=== PATIENT | male | born 1950 | race Caucasian/White ===

== ENCOUNTER 2017-02-16 13:22 | Inpatient (IN) | payer MEDICARE ==
[~2017-02-16] VITALS: Ht 170.2 cm; Wt 71.6 kg
[~2017-02-16 13:22] MED LIST: ACET325T14 PO; AMLO5TAB2 PO; AMLO5TAB4 PO; ANTIDEPRESSANT; ASCO500T6 PO; ASPI-496 PO; ASPI-515 PO; ATOR40TA78 PO; Amlodipine Besylate PO; BETA15OI6 TP; CHLO25TA PO; CLON0.1T12 PO; COMPAZINE; DICL100G8 TP; DULO20CA17 PO; ENAL20TA PO; ESCI10TA PO; FAMO20TA7 PO; FERR1TAB2 PO; FERR325T20 PO; FOLI-17 PO; Ferrous Sulfate PO; HYDR-3343 PO; HYDR25TA6 PO; HYDR50TA13 PO; Hydrocodone Bit/Acetaminophen PO; LISI-167 PO; LISI-170 PO; LISI5TAB7 PO; METF500T PO; METH2.5T PO; METH4TAB2 PO; METO-95 PO; METO-99 PO; METO25TA35 PO; METO50TA82 PO; OMEP-110 PO; ONDA4TAB10 PO; ONDA4TAB13 PO; ONDA4TAB13 SL; OXYC10TA32 PO; OXYC5TAB2 PO; PANT40TA3 PO; POTA10TA11 PO; PRED20TA PO; SENN1TAB7 PO; SPIR25TA PO; SUCR1ORA11 PO; SUCR1ORA2 PO; SUCR1TAB26 PO; SUMA25TA3 PO; TAMS-11 PO; TAMS0.4C2 PO; UNKNOWN BP MEDS; [UNRECOGNIZED DRUG - REMARK]
[2017-02-16] MEDS ORDERED: SODIUM CHLORIDE FLUSH 10ML SYR IVF ONE (14:30)
[2017-02-16] MEDS ORDERED: FAMOTIDINE 20 MG/2 ML IVP ONE (14:30)
[2017-02-16] MEDS ORDERED: SODIUM CHLORIDE 0.9% 1,000ML IVBOLUS ONE ×2 (14:30→17:00)
[2017-02-16] MEDS ORDERED: ONDANSETRON 2MG/ML, 2ML IVPush ONE ×2 (14:30→17:00)
[2017-02-16] MEDS ORDERED: MORPHINE SULFATE 4 MG/ML, 1ML ONE ×4 (14:57→21:48)
[2017-02-16] MEDS ORDERED: ONDANSETRON 2MG/ML, 2ML ONE ×2 (14:58→16:57)
[2017-02-16] MEDS ORDERED: FAMOTIDINE 20 MG/2 ML ONE (14:58)
[2017-02-16] MEDS: MORPHINE SULFATE 4 MG/ML, 1ML IVPush PRN ×2 (15:03→16:00)
[2017-02-16 15:35] LABS: ASPARTATE AMINO TRANSFERASE 7 U/L (15-37); BLOOD UREA NITROGEN 10 mg/dL (7-18)
[2017-02-16 18:03] LABS: PATH.CAST-FLAG NOT PRESENT; SPERM-FLAG NOT PRESENT; SRC-FLAG NOT PRESENT; XTAL-FLAG NOT PRESENT; YLC-FLAG NOT PRESENT
[2017-02-16] MEDS ORDERED: OMNIPAQUE 350 MG/ML, 100ML BOTTLE ONE (18:17)
[2017-02-16] MEDS ORDERED: MORPHINE SULFATE 4 MG/ML, 1ML IVPush ONE ×2 (19:00→21:30)
[2017-02-16] MEDS ORDERED: LISINOPRIL 10 MG TABLET PO ONE (19:00)
[2017-02-16] MEDS ORDERED: LISINOPRIL 20 MG TABLET ONE (19:08)
[2017-02-16] MEDS ORDERED: PROCHLORPERAZINE 5 MG/ML, 2ML ONE (20:57)
[2017-02-16] MEDS ORDERED: PROCHLORPERAZINE 5 MG/ML, 2ML IM ONE (21:00)
[2017-02-16] MEDS ORDERED: METRONIDAZOLE PMX 500MG/100ML 100 ML ONE (21:28)
[2017-02-16] MEDS ORDERED: METRONIDAZOLE PMX 500MG/100ML 100 ML IV ONE (21:30)
[2017-02-16] MEDS ORDERED: hydrALAzine 20 MG/ML, 1ML IV PRN (22:00)
[2017-02-16] MEDS ORDERED: DIPHENHYDRAMINE 25 MG CAPSULE PO PRN (22:00)
[2017-02-16] MEDS ORDERED: LABETALOL 5MG/ML, 20ML IVPush PRN (22:00)
[2017-02-16] MEDS ORDERED: LABETALOL 5MG/ML 40ML VIAL ONE (22:34)
[2017-02-16] MEDS ORDERED: LABETALOL 20 MG/4 ML IVPush PRN (23:00)
[2017-02-16 23:11] VITALS: BP 170/90
[2017-02-17] MEDS: POTASSIUM CHLORIDE 20 MEQ in SODIUM CHLORIDE 0.45% 1,000 ML IV SCH ×2 (01:02→17:37)
[2017-02-17 01:36] VITALS: BP 171/96
[2017-02-17 03:41] VITALS: BP 165/84
[2017-02-17 05:56] LABS: BLOOD UREA NITROGEN 7 mg/dL (7-18)
[2017-02-17] MEDS ORDERED: METRONIDAZOLE PMX 500MG/100ML 100 ML IV SCH (06:00)
[2017-02-17 06:41] VITALS: BP 166/81
[2017-02-17] MEDS ORDERED: POTASSIUM CHLORIDE 40 MEQ in SODIUM CHLORIDE 0.9% 500 ML IV ONE (07:30)
[2017-02-17] MEDS: LISINOPRIL 5 MG TABLET PO SCH ×2 (07:49→20:34)
[2017-02-17] MEDS: KETOROLAC 30 MG/1 ML IVPush PRN ×2 (08:10→18:33)
[2017-02-17] MEDS: ONDANSETRON 2MG/ML, 2ML IVPush PRN ×2 (08:10→18:33)
[2017-02-17] MEDS: TAMSULOSIN 0.4 MG CAP.ER.24H PO SCH (10:17)
[2017-02-17] MEDS: metroNIDAZOLE 500 MG TABLET PO SCH ×2 (10:17→17:19)
[2017-02-17] MEDS: ACETAMINOPHEN 325 MG TABLET PO PRN ×2 (11:35→23:14)
[2017-02-17 13:31] VITALS: BP 139/81
[2017-02-17 18:38] VITALS: BP 187/93
[2017-02-17 20:32] VITALS: BP 154/75
[2017-02-18] MEDS: KETOROLAC 30 MG/1 ML IVPush PRN (00:12)
[2017-02-18] MEDS: metroNIDAZOLE 500 MG TABLET PO SCH ×2 (01:33→07:57)
[2017-02-18 02:30] VITALS: BP 157/93
[2017-02-18] MEDS: ACETAMINOPHEN 325 MG TABLET PO PRN ×2 (04:30→11:32)
[2017-02-18] MEDS: POTASSIUM CHLORIDE 20 MEQ in SODIUM CHLORIDE 0.45% 1,000 ML IV SCH (05:12)
[2017-02-18 06:02] LABS: BLOOD UREA NITROGEN 4 mg/dL (7-18)
[2017-02-18 07:13] VITALS: BP 180/88
[2017-02-18] MEDS ORDERED: POTASSIUM CHLORIDE 40 MEQ in SODIUM CHLORIDE 0.9% 500 ML IV ONE (07:30)
[2017-02-18] MEDS ORDERED: POTASSIUM CHLORIDE 20 MEQ TAB.ER.PRT PO ONE (07:30)
[2017-02-18] MEDS: TAMSULOSIN 0.4 MG CAP.ER.24H PO SCH (07:57)
[2017-02-18] MEDS: LISINOPRIL 5 MG TABLET PO SCH (07:58)
[2017-02-18] MEDS ORDERED: metFORMIN 500 MG TABLET PO SCH (08:00)
[2017-02-18] MEDS ORDERED: AMLODIPINE 2.5 MG TABLET PO SCH (09:00)
[2017-02-18] MEDS ORDERED: MAGNESIUM SULFATE PMX 2GM/50ML 50 ML IV ONE (11:00)
[2017-02-18] MEDS ORDERED: LABETALOL 5MG/ML, 20ML IV PRN (12:00)
[2017-02-18] MEDS ORDERED: LABETALOL 20 MG/4 ML IV PRN (12:30)
[2017-02-18 13:03] VITALS: BP 165/86
[2017-02-19] MEDS ORDERED: AMLODIPINE 5 MG TABLET PO SCH (09:00)
== END 2017-02-18 16:38 | disposition left against medical advice (07) | DRG 372 ==
LOC: ED 15:20 → EDIP 20:21 → UNDOADMIN 20:21 → EDIP 21:02 → 3NE 22:56
PROVIDERS: ADMIT Family Medicine; ATTEND Family Medicine
DX: A04.7 Enterocolitis due to Clostridium difficile (principal); R45.851 Suicidal ideations; E83.42 Hypomagnesemia; E87.6 Hypokalemia; F32.9 Major depressive disorder, single episode, unspecified; I10 Essential (primary) hypertension; I16.0 Hypertensive urgency; R73.9 Hyperglycemia, unspecified; L40.50 Arthropathic psoriasis, unspecified; N40.1 Benign prostatic hyperplasia with lower urinary tract symptoms; R33.8 Other retention of urine; Z79.899 Other long term (current) drug therapy; I25.2 Old myocardial infarction; Z87.11 Personal history of peptic ulcer disease; Z91.14 Patient's other noncompliance with medication regimen; Z95.5 Presence of coronary angioplasty implant and graft; Z88.6 Allergy status to analgesic agent
CPT/HCPCS: 36415; 74177; 80048; 80053; 81001; 83036; 83605; 83690; 83735; 84134; 84153; 85025; 85610; 85730; 87324; 96361; 96372; 96374; 96375; 96376; J1885; J2405; J3480; Q9967; J0360; J0780; J3475; J3490; J7030; J7040; Q0163; S0028

== ENCOUNTER 2017-03-06 05:56 | Emergency (ER) | payer MEDICARE ==
[~2017-03-06] VITALS: Ht 170.2 cm; Wt 64.6 kg
[2017-03-06] MEDS ORDERED: SODIUM CHLORIDE 0.9% 1,000 ML IV ONE (06:10)
[2017-03-06] MEDS ORDERED: SODIUM CHLORIDE FLUSH 10ML SYR IVF ONE (06:30)
[2017-03-06] MEDS ORDERED: SODIUM CHLORIDE 0.9% 1,000ML IVBOLUS ONE (06:30)
[2017-03-06 06:43] LABS: ASPARTATE AMINO TRANSFERASE 7 U/L (15-37); BLOOD UREA NITROGEN 12 mg/dL (7-18)
[2017-03-06 06:52] LABS: IS PT STATUS REG ER OR PRE ER? YES
[2017-03-06] MEDS ORDERED: metroNIDAZOLE 500 MG TABLET PO ONE (11:30)
[2017-03-06] MEDS ORDERED: metroNIDAZOLE 500 MG TABLET ONE (11:31)
[2017-03-06 11:44] VITALS: BP 144/71
== END 2017-03-06 11:46 | disposition home or self-care (01) ==
LOC: ED 11:30
DX: R19.7 Diarrhea, unspecified (principal); A04.7 Enterocolitis due to Clostridium difficile; E11.9 Type 2 diabetes mellitus without complications; E86.0 Dehydration; I10 Essential (primary) hypertension; R11.2 Nausea with vomiting, unspecified; Z90.89 Acquired absence of other organs
CPT/HCPCS: 36415; 71010; 80053; 81001; 83605; 84484; 85025; 85610; 85730; 87040; 87324; 89055; 93005; 96360; 96361; 99285; J7030

== ENCOUNTER 2017-03-10 01:19 | Inpatient (IN) | payer MEDICARE ==
[~2017-03-10] VITALS: Ht 170.2 cm; Wt 65.9 kg
[2017-03-10] MEDS ORDERED: SODIUM CHLORIDE FLUSH 10ML SYR IVF ONE (02:00)
[2017-03-10] MEDS ORDERED: SODIUM CHLORIDE 0.9% 1,000ML IVBOLUS ONE (02:00)
[2017-03-10] MEDS ORDERED: ONDANSETRON 2MG/ML, 2ML IVPush ONE (02:00)
[2017-03-10] MEDS ORDERED: MORPHINE SULFATE 4 MG/ML, 1ML IVPush PRN (02:00)
[2017-03-10] MEDS ORDERED: ONDANSETRON 2MG/ML, 2ML ONE (02:09)
[2017-03-10] MEDS ORDERED: METR250T PO (02:18)
[2017-03-10 02:37] LABS: ASPARTATE AMINO TRANSFERASE < 3 U/L (15-37); BLOOD UREA NITROGEN 6 mg/dL (7-18)
[2017-03-10] MEDS ORDERED: METRONIDAZOLE PMX 500MG/100ML 100 ML IV ONE (03:00)
[2017-03-10] MEDS ORDERED: POTASSIUM CHLORIDE 20 MEQ TAB.ER.PRT PO ONE (03:00)
[2017-03-10] MEDS ORDERED: METRONIDAZOLE PMX 500MG/100ML 100 ML ONE (03:10)
[2017-03-10] MEDS ORDERED: POTASSIUM CHLORIDE 20 MEQ TAB.ER.PRT ONE (03:10)
[2017-03-10] MEDS ORDERED: LABETALOL 5MG/ML, 20ML ONE (04:20)
[2017-03-10] MEDS ORDERED: LABETALOL 5MG/ML, 20ML IVPush ONE (04:30)
[2017-03-10] MEDS ORDERED: ONDANSETRON ODT 4 MG PO PRN (05:00)
[2017-03-10] MEDS ORDERED: LABETALOL 5MG/ML, 20ML IVPush PRN (05:30)
[2017-03-10] MEDS: ACETAMINOPHEN 325 MG TABLET PO PRN (06:25)
[2017-03-10 07:00] VITALS: BP 177/108
[2017-03-10] MEDS ORDERED: LISINOPRIL 20 MG TABLET PO SCH (09:00)
[2017-03-10] MEDS: CHLORTHALIDONE 25 MG TABLET PO SCH (09:14)
[2017-03-10] MEDS: LISINOPRIL 20 MG TABLET PO SCH ×2 (09:15→20:27)
[2017-03-10 10:15] VITALS: BP 167/98
[2017-03-10] MEDS: HYDROcodone/APAP 5/325 TABLET PO PRN (11:31)
[2017-03-10 12:21] VITALS: BP 159/95
[2017-03-10] MEDS ORDERED: DEXTROSE 4 GM TAB.CHEW PO PRN (14:30)
[2017-03-10] MEDS ORDERED: DEXTROSE 50%, 50ML SYRINGE IVPush PRN (14:30)
[2017-03-10] MEDS ORDERED: GLUCAGON 1 MG IM PRN (14:30)
[2017-03-10] MEDS: INSULIN ASPART 100 UNITS/ML, PEN SQ-INSULIN SCH ×2 (16:00→20:50)
[2017-03-10] MEDS ORDERED: POTASSIUM CHLORIDE 40 MEQ in SODIUM CHLORIDE 0.9% 500 ML IV ONE ×2 (16:30→16:36)
[2017-03-10] MEDS ORDERED: MAGNESIUM SULFATE PMX 2GM/50ML 50 ML IV ONE (16:30)
[2017-03-10 16:45] LABS: DAU SCREEN DISCLAIMER
[2017-03-10 18:03] LABS: OCCBLD OBC PASS
[2017-03-10 20:04] VITALS: BP 121/73
[2017-03-10] MEDS: metroNIDAZOLE 500 MG TABLET PO SCH ×2 (20:27→21:00)
[2017-03-10] MEDS: SODIUM CHLORIDE FLUSH 10ML SYR IVF SCH (20:34)
[2017-03-10] MEDS: ONDANSETRON 2MG/ML, 2ML IVPush PRN (21:28)
[2017-03-11] VITALS (7 sets, daily range): BP systolic 142–185; BP diastolic 84–103
[2017-03-11 05:33] LABS: BLOOD UREA NITROGEN 4 mg/dL (7-18)
[2017-03-11] MEDS ORDERED: POTASSIUM CHLORIDE 40 MEQ in SODIUM CHLORIDE 0.9% 500 ML IV ONE ×2 (07:00→10:00)
[2017-03-11] MEDS: INSULIN ASPART 100 UNITS/ML, PEN SQ-INSULIN SCH ×2 (07:00→11:00)
[2017-03-11] MEDS: SODIUM CHLORIDE FLUSH 10ML SYR IVF SCH ×2 (08:26→21:38)
[2017-03-11] MEDS: metroNIDAZOLE 500 MG TABLET PO SCH ×2 (08:27→21:37)
[2017-03-11] MEDS: CHLORTHALIDONE 25 MG TABLET PO SCH (08:27)
[2017-03-11] MEDS: HYDROcodone/APAP 5/325 TABLET PO PRN (08:27)
[2017-03-11] MEDS: LISINOPRIL 20 MG TABLET PO SCH ×2 (08:28→21:37)
[2017-03-11] MEDS: ONDANSETRON 2MG/ML, 2ML IVPush PRN (09:47)
[2017-03-11] MEDS: hydrALAzine 20 MG/ML, 1ML IV PRN ×2 (12:47→16:05)
[2017-03-11] MEDS: ACETAMINOPHEN 325 MG TABLET PO PRN (14:35)
[2017-03-12 02:18] VITALS: BP 138/77
[2017-03-12 06:41] VITALS: BP 163/82
[2017-03-12] MEDS: SODIUM CHLORIDE FLUSH 10ML SYR IVF SCH (09:03)
[2017-03-12] MEDS: metroNIDAZOLE 500 MG TABLET PO SCH (09:04)
[2017-03-12] MEDS: LISINOPRIL 20 MG TABLET PO SCH (09:04)
[2017-03-12] MEDS: CHLORTHALIDONE 25 MG TABLET PO SCH (09:04)
[2017-03-12 12:51] VITALS: BP 162/93
[2017-03-12] MEDS ORDERED: AMLO5TAB2 PO (14:44)
[2017-03-12] MEDS ORDERED: LISI-170 PO (14:44)
[2017-03-12] MEDS ORDERED: METR500T PO (14:44)
[2017-03-12] MEDS ORDERED: CHLO25TA PO (14:44)
== END 2017-03-12 15:49 | disposition home or self-care (01) | DRG 372 ==
LOC: ED 01:45 → EDIP 03:48 → 3NE 05:07
PROVIDERS: ADMIT Family Medicine; ATTEND Family Medicine
DX: A04.7 Enterocolitis due to Clostridium difficile (principal); E44.1 Mild protein-calorie malnutrition; E87.6 Hypokalemia; E86.0 Dehydration; I10 Essential (primary) hypertension; I16.0 Hypertensive urgency; E11.9 Type 2 diabetes mellitus without complications; F32.9 Major depressive disorder, single episode, unspecified; F12.20 Cannabis dependence, uncomplicated; M19.90 Unspecified osteoarthritis, unspecified site; Z66 Do not resuscitate; Z82.3 Family history of stroke; Z86.73 Personal history of transient ischemic attack (TIA), and cerebral infarction without residual deficits; Z87.11 Personal history of peptic ulcer disease; I25.2 Old myocardial infarction; Z91.19 Patient's noncompliance with other medical treatment and regimen; Z88.8 Allergy status to other drugs, medicaments and biological substances; Z79.899 Other long term (current) drug therapy; Z90.49 Acquired absence of other specified parts of digestive tract
CPT/HCPCS: 36415; 80048; 80053; 80307; 82272; 82962; 83605; 83735; 84132; 84145; 85025; 87040; 87324; 93005; 96361; 96365; 96366; 96375; J1815; J2405; J3480; J0360; J3475; J7030; J7040

== ENCOUNTER 2017-04-10 06:04 | Inpatient (IN) | payer MEDICARE ==
[~2017-04-10] VITALS: Ht 170.2 cm; Wt 74.1 kg
[~2017-04-10 06:04] MED LIST changes: +METR250T PO; +METR500T PO
[2017-04-10] MEDS ORDERED: SODIUM CHLORIDE 0.9% 1,000 ML IV ONE (06:26)
[2017-04-10] MEDS ORDERED: SODIUM CHLORIDE 0.9% 1,000ML IVBOLUS ONE ×2 (06:30→08:00)
[2017-04-10] MEDS ORDERED: LORazepam 2 MG/ML, 1ML IVPush ONE (06:30)
[2017-04-10] MEDS ORDERED: ONDANSETRON 2MG/ML, 2ML IVPush ONE (06:30)
[2017-04-10 07:16] LABS: ASPARTATE AMINO TRANSFERASE 32 U/L (15-37); BLOOD UREA NITROGEN 23 mg/dL (7-18)
[2017-04-10 07:20] LABS: ACETAMINOPHEN < 2 mcg/mL (10-30)
[2017-04-10] MEDS ORDERED: ONDANSETRON 2MG/ML, 2ML ONE (07:55)
[2017-04-10] MEDS ORDERED: LORazepam 2 MG/ML, 1ML ONE (07:55)
[2017-04-10] MEDS ORDERED: POTASSIUM CHLORIDE 40 MEQ in SODIUM CHLORIDE 0.9% 500 ML IV ONE ×2 (08:00→16:30)
[2017-04-10] MEDS ORDERED: POTASSIUM CHLORIDE 10% 40 MEQ/30 ML UDC PO ONE (08:00)
[2017-04-10] MEDS ORDERED: CEFTRIAXONE PMX 1GM/50ML 50 ML IV ONE (09:30)
[2017-04-10] MEDS ORDERED: CEFTRIAXONE PMX 1GM/50ML 50 ML ONE (09:54)
[2017-04-10] MEDS ORDERED: LABETALOL 5MG/ML, 20ML ONE (09:54)
[2017-04-10] MEDS ORDERED: LABETALOL 5MG/ML, 20ML IVPush ONE (10:00)
[2017-04-10 10:57] LABS: DAU SCREEN DISCLAIMER
[2017-04-10 11:09] LABS: PATH.CAST-FLAG NOT PRESENT; SPERM-FLAG NOT PRESENT; SRC-FLAG NOT PRESENT; XTAL-FLAG NOT PRESENT; YLC-FLAG NOT PRESENT
[2017-04-10] MEDS ORDERED: ONDANSETRON 2MG/ML, 2ML IVPush PRN (11:30)
[2017-04-10] MEDS ORDERED: metroNIDAZOLE 50 MG/ML ORAL.SUSP PO SCH (11:30)
[2017-04-10] MEDS ORDERED: morphine SULFATE 10 MG/ML, 1ML IVPush PRN (11:30)
[2017-04-10] MEDS ORDERED: LABETALOL 5MG/ML 40ML VIAL IVPush PRN (11:30)
[2017-04-10 13:22] VITALS: BP 156/85
[2017-04-10] MEDS: CHLORTHALIDONE 25 MG TABLET PO SCH (14:09)
[2017-04-10] MEDS: AMLODIPINE 5 MG TABLET PO SCH (14:09)
[2017-04-10] MEDS ORDERED: metroNIDAZOLE 500 MG TABLET PO SCH (14:16)
[2017-04-10] MEDS: POTASSIUM CHLORIDE 20 MEQ in LACTATED RINGERS 1,000 ML IV SCH (15:49)
[2017-04-10] MEDS: LISINOPRIL 20 MG TABLET PO SCH ×2 (15:55→22:13)
[2017-04-10] MEDS: ENOXAPARIN 40 MG/0.4 ML SQ SCH (15:55)
[2017-04-10] MEDS ORDERED: POTASSIUM CHLORIDE 20 MEQ TAB.ER.PRT PO ONE (16:30)
[2017-04-10 19:35] VITALS: BP 125/74
[2017-04-10 21:20] VITALS: BP_SYST 130; BP_SYST 134; BP_SYST 135; BP_DIAS 70; BP_DIAS 72; BP_DIAS 76
[2017-04-10] MEDS: ATORVASTATIN 20 MG TABLET PO SCH (22:13)
[2017-04-10] MEDS: PIPERACILLIN/TAZO/PMX 3.375GM 50 ML IV SCH (22:13)
[2017-04-11] VITALS (14 sets, daily range): BP systolic 146–206; BP diastolic 77–111
[2017-04-11] MEDS: POTASSIUM CHLORIDE 20 MEQ in LACTATED RINGERS 1,000 ML IV SCH ×2 (04:49→12:00)
[2017-04-11] MEDS: PIPERACILLIN/TAZO/PMX 3.375GM 50 ML IV SCH ×2 (04:50→10:00)
[2017-04-11 05:08] LABS: BLOOD UREA NITROGEN 11 mg/dL (7-18)
[2017-04-11] MEDS ORDERED: POTASSIUM CHLORIDE 20 MEQ TAB.ER.PRT PO ONE (07:30)
[2017-04-11] MEDS: SENNA/DOCUSATE TABLET PO SCH (08:15)
[2017-04-11] MEDS: ASPIRIN 81 MG TABLET CHEW PO SCH (08:15)
[2017-04-11] MEDS: AMLODIPINE 5 MG TABLET PO SCH ×2 (08:19→21:32)
[2017-04-11] MEDS: LISINOPRIL 20 MG TABLET PO SCH ×2 (08:19→21:32)
[2017-04-11] MEDS: CHLORTHALIDONE 25 MG TABLET PO SCH (08:19)
[2017-04-11] MEDS: ACETAMINOPHEN 325 MG TABLET PO PRN (08:41)
[2017-04-11] MEDS: FAMOTIDINE 20 MG TABLET PO SCH (11:03)
[2017-04-11] MEDS: ENOXAPARIN 40 MG/0.4 ML SQ SCH (11:03)
[2017-04-11] MEDS: ENALAPRILAT 1.25 MG/ML, 2ML IVPush PRN ×2 (13:19→13:45)
[2017-04-11] MEDS ORDERED: MORPHINE SULFATE 4 MG/ML, 1ML ONE (14:38)
[2017-04-11] MEDS: LABETALOL 5MG/ML, 20ML IVPush PRN (15:30)
[2017-04-11] MEDS: KETOROLAC 30 MG/1 ML IVPush SCH ×2 (16:52→22:54)
[2017-04-11] MEDS ORDERED: hydrALAzine 20 MG/ML, 1ML IV PRN (17:30)
[2017-04-11] MEDS: ATORVASTATIN 20 MG TABLET PO SCH (21:32)
[2017-04-11] MEDS: OLANZAPINE 2.5 MG TABLET PO SCH (21:33)
[2017-04-12 02:24] VITALS: BP_SYST 147; BP_SYST 160; BP_SYST 200; BP_SYST 239; BP_DIAS 109; BP_DIAS 133; BP_DIAS 90; BP_DIAS 92
[2017-04-12] MEDS: LABETALOL 5MG/ML, 20ML IVPush PRN (02:41)
[2017-04-12] MEDS: KETOROLAC 30 MG/1 ML IVPush SCH ×4 (04:52→21:26)
[2017-04-12 04:58] VITALS: BP 152/88
[2017-04-12 06:03] LABS: BLOOD UREA NITROGEN 15 mg/dL (7-18); TOTAL IRON BINDING CAPACITY 387 mcg/dL (250-450); TRANSFERRIN 252 mg/dL (200-360)
[2017-04-12 08:00] VITALS: BP 172/99
[2017-04-12] MEDS: INSULIN ASPART 100 UNITS/ML, PEN SQ-INSULIN SCH ×4 (09:10→21:37)
[2017-04-12] MEDS: FAMOTIDINE 20 MG TABLET PO SCH (09:11)
[2017-04-12] MEDS: SENNA/DOCUSATE TABLET PO SCH (09:11)
[2017-04-12] MEDS: CHLORTHALIDONE 25 MG TABLET PO SCH (09:11)
[2017-04-12] MEDS: LISINOPRIL 20 MG TABLET PO SCH ×2 (09:11→21:27)
[2017-04-12] MEDS: ASPIRIN 81 MG TABLET CHEW PO SCH (09:11)
[2017-04-12] MEDS: FERROUS SULFATE 325 MG TABLET PO SCH ×2 (09:12→16:32)
[2017-04-12] MEDS: AMLODIPINE 5 MG TABLET PO SCH ×2 (09:21→21:26)
[2017-04-12] MEDS: ENOXAPARIN 40 MG/0.4 ML SQ SCH (12:09)
[2017-04-12 12:55] VITALS: BP 141/76
[2017-04-12 18:58] VITALS: BP 164/91
[2017-04-12] MEDS: ATORVASTATIN 20 MG TABLET PO SCH (21:27)
[2017-04-12] MEDS: ACETAMINOPHEN 325 MG TABLET PO PRN (21:27)
[2017-04-12] MEDS: OLANZAPINE 2.5 MG TABLET PO SCH (21:30)
[2017-04-13 02:18] VITALS: BP 178/97
[2017-04-13] MEDS: LABETALOL 5MG/ML, 20ML IVPush PRN ×2 (02:45→22:54)
[2017-04-13] MEDS: KETOROLAC 30 MG/1 ML IVPush SCH ×4 (04:25→22:53)
[2017-04-13] MEDS: INSULIN ASPART 100 UNITS/ML, PEN SQ-INSULIN SCH ×4 (07:00→21:09)
[2017-04-13 08:09] VITALS: BP 175/89
[2017-04-13] MEDS: ASPIRIN 81 MG TABLET CHEW PO SCH (08:46)
[2017-04-13] MEDS: FERROUS SULFATE 325 MG TABLET PO SCH ×2 (08:46→17:43)
[2017-04-13] MEDS: SENNA/DOCUSATE TABLET PO SCH (08:47)
[2017-04-13] MEDS: FAMOTIDINE 20 MG TABLET PO SCH (08:47)
[2017-04-13] MEDS: AMLODIPINE 5 MG TABLET PO SCH ×2 (08:47→21:07)
[2017-04-13] MEDS: CHLORTHALIDONE 25 MG TABLET PO SCH (08:50)
[2017-04-13] MEDS: LISINOPRIL 20 MG TABLET PO SCH ×2 (08:55→21:08)
[2017-04-13] MEDS: ENOXAPARIN 40 MG/0.4 ML SQ SCH (12:02)
[2017-04-13 14:00] VITALS: BP 143/91
[2017-04-13] MEDS: metFORMIN 500 MG TABLET PO SCH (17:42)
[2017-04-13 19:06] LABS: CYCLIC CITRULLINATED PEP IGG/A 10 units (0-19); RA LATEX TURBIDITY <10.0 IU/mL (0.0-13.9)
[2017-04-13 20:00] VITALS: BP 186/97
[2017-04-13] MEDS: OLANZAPINE 2.5 MG TABLET PO SCH (20:00)
[2017-04-13] MEDS: ATORVASTATIN 20 MG TABLET PO SCH (21:07)
[2017-04-13 22:50] VITALS: BP 181/93
[2017-04-13 23:27] VITALS: BP 154/84
[2017-04-14] VITALS (7 sets, daily range): BP systolic 134–190; BP diastolic 80–95
[2017-04-14] MEDS: KETOROLAC 30 MG/1 ML IVPush SCH (04:51)
[2017-04-14] MEDS: INSULIN ASPART 100 UNITS/ML, PEN SQ-INSULIN SCH ×4 (07:00→21:02)
[2017-04-14] MEDS: CHLORTHALIDONE 25 MG TABLET PO SCH (08:23)
[2017-04-14] MEDS: AMLODIPINE 5 MG TABLET PO SCH ×2 (08:24→21:02)
[2017-04-14] MEDS: ASPIRIN 81 MG TABLET CHEW PO SCH (08:24)
[2017-04-14] MEDS: SENNA/DOCUSATE TABLET PO SCH (08:24)
[2017-04-14] MEDS: FAMOTIDINE 20 MG TABLET PO SCH (08:24)
[2017-04-14] MEDS: FERROUS SULFATE 325 MG TABLET PO SCH ×2 (08:24→17:40)
[2017-04-14] MEDS: metFORMIN 500 MG TABLET PO SCH ×2 (08:24→17:40)
[2017-04-14] MEDS: LISINOPRIL 20 MG TABLET PO SCH ×2 (08:24→21:02)
[2017-04-14] MEDS ORDERED: CARVEDILOL 12.5 MG TABLET PO SCH (11:00)
[2017-04-14] MEDS: ENOXAPARIN 40 MG/0.4 ML SQ SCH (12:36)
[2017-04-14] MEDS ORDERED: ONDANSETRON ODT 4 MG ONE (15:10)
[2017-04-14] MEDS: CARVEDILOL 12.5 MG TABLET PO SCH (18:32)
[2017-04-14] MEDS: OLANZAPINE 2.5 MG TABLET PO SCH (21:02)
[2017-04-14] MEDS: ATORVASTATIN 20 MG TABLET PO SCH (21:02)
[2017-04-15] MEDS: ACETAMINOPHEN 325 MG TABLET PO PRN (02:43)
[2017-04-15] MEDS: INSULIN ASPART 100 UNITS/ML, PEN SQ-INSULIN SCH ×4 (07:00→21:08)
[2017-04-15] MEDS: CARVEDILOL 12.5 MG TABLET PO SCH ×2 (07:29→17:21)
[2017-04-15] MEDS: AMLODIPINE 5 MG TABLET PO SCH ×2 (07:30→21:08)
[2017-04-15] MEDS: LISINOPRIL 20 MG TABLET PO SCH ×2 (07:30→21:08)
[2017-04-15] MEDS: CHLORTHALIDONE 25 MG TABLET PO SCH (07:30)
[2017-04-15 07:46] VITALS: BP 177/109
[2017-04-15] MEDS: metFORMIN 500 MG TABLET PO SCH ×2 (08:01→17:18)
[2017-04-15] MEDS: FERROUS SULFATE 325 MG TABLET PO SCH ×2 (08:01→17:19)
[2017-04-15] MEDS: ASPIRIN 81 MG TABLET CHEW PO SCH (08:02)
[2017-04-15] MEDS: FAMOTIDINE 20 MG TABLET PO SCH (08:02)
[2017-04-15] MEDS: SENNA/DOCUSATE TABLET PO SCH (08:04)
[2017-04-15 08:34] VITALS: BP 152/78
[2017-04-15] MEDS: HYDROcodone/APAP 5/325 TABLET PO PRN (09:18)
[2017-04-15] MEDS: ENOXAPARIN 40 MG/0.4 ML SQ SCH (11:43)
[2017-04-15 17:16] VITALS: BP 156/84
[2017-04-15 19:08] VITALS: BP 151/85
[2017-04-15] MEDS: OLANZAPINE 2.5 MG TABLET PO SCH (21:07)
[2017-04-15] MEDS: ATORVASTATIN 20 MG TABLET PO SCH (21:08)
[2017-04-16 06:12] VITALS: BP 151/94
[2017-04-16] MEDS: CARVEDILOL 12.5 MG TABLET PO SCH ×2 (06:13→17:07)
[2017-04-16] MEDS: INSULIN ASPART 100 UNITS/ML, PEN SQ-INSULIN SCH ×2 (07:00→11:00)
[2017-04-16] MEDS: SENNA/DOCUSATE TABLET PO SCH (07:09)
[2017-04-16 07:50] VITALS: BP 157/77
[2017-04-16] MEDS: ASPIRIN 81 MG TABLET CHEW PO SCH (08:27)
[2017-04-16] MEDS: FAMOTIDINE 20 MG TABLET PO SCH (08:27)
[2017-04-16] MEDS: LISINOPRIL 20 MG TABLET PO SCH ×2 (08:27→20:10)
[2017-04-16] MEDS: metFORMIN 500 MG TABLET PO SCH ×2 (08:27→17:00)
[2017-04-16] MEDS: FERROUS SULFATE 325 MG TABLET PO SCH ×2 (08:27→17:07)
[2017-04-16] MEDS: AMLODIPINE 5 MG TABLET PO SCH ×2 (10:01→20:09)
[2017-04-16] MEDS: CHLORTHALIDONE 25 MG TABLET PO SCH (10:01)
[2017-04-16] MEDS: ENOXAPARIN 40 MG/0.4 ML SQ SCH (11:46)
[2017-04-16] MEDS ORDERED: METF500T PO (14:41)
[2017-04-16] MEDS ORDERED: CHLO25TA PO (14:41)
[2017-04-16] MEDS ORDERED: ATOR20TA9 PO (14:41)
[2017-04-16] MEDS ORDERED: OLAN2.5T5 PO (14:41)
[2017-04-16] MEDS ORDERED: FERR325T20 PO (14:41)
[2017-04-16] MEDS ORDERED: TRAM50TA2 PO (14:41)
[2017-04-16] MEDS ORDERED: SENN1TAB7 PO (14:41)
[2017-04-16] MEDS ORDERED: HYDR-3240 PO (14:41)
[2017-04-16] MEDS ORDERED: AMLO5TAB2 PO (14:41)
[2017-04-16] MEDS ORDERED: FAMO20TA7 PO (14:41)
[2017-04-16] MEDS ORDERED: CARV12.543 PO (14:41)
[2017-04-16] MEDS ORDERED: LISI-170 PO (14:41)
[2017-04-16] MEDS ORDERED: ASPI-515 PO (14:41)
[2017-04-16 17:03] VITALS: BP 148/80
[2017-04-16] MEDS: ACETAMINOPHEN 325 MG TABLET PO PRN (18:29)
[2017-04-16] MEDS: OLANZAPINE 2.5 MG TABLET PO SCH (20:09)
[2017-04-16] MEDS: ATORVASTATIN 20 MG TABLET PO SCH (20:09)
[2017-04-16 20:25] VITALS: BP 133/72
[2017-04-17 06:31] VITALS: BP 144/74
[2017-04-17] MEDS: CARVEDILOL 12.5 MG TABLET PO SCH ×2 (06:33→17:16)
[2017-04-17] MEDS: SENNA/DOCUSATE TABLET PO SCH (09:00)
[2017-04-17] MEDS: ASPIRIN 81 MG TABLET CHEW PO SCH (09:08)
[2017-04-17] MEDS: FAMOTIDINE 20 MG TABLET PO SCH (09:08)
[2017-04-17] MEDS: FERROUS SULFATE 325 MG TABLET PO SCH ×2 (09:08→17:09)
[2017-04-17] MEDS: LISINOPRIL 20 MG TABLET PO SCH ×2 (09:09→20:33)
[2017-04-17] MEDS: AMLODIPINE 5 MG TABLET PO SCH ×2 (09:09→20:32)
[2017-04-17] MEDS: CHLORTHALIDONE 25 MG TABLET PO SCH (09:10)
[2017-04-17] MEDS: metFORMIN 500 MG TABLET PO SCH ×2 (09:21→17:09)
[2017-04-17] MEDS: ENOXAPARIN 40 MG/0.4 ML SQ SCH (12:41)
[2017-04-17] MEDS: DULOXETINE 20 MG CAPSULE.DR PO SCH ×2 (12:41→20:33)
[2017-04-17] MEDS: ACETAMINOPHEN 325 MG TABLET PO PRN (16:02)
[2017-04-17 17:14] VITALS: BP 134/74
[2017-04-17 20:22] VITALS: BP 120/72
[2017-04-17] MEDS: ATORVASTATIN 20 MG TABLET PO SCH (20:32)
[2017-04-18 05:10] VITALS: BP 116/69
[2017-04-18] MEDS: CARVEDILOL 12.5 MG TABLET PO SCH ×2 (05:18→18:00)
[2017-04-18 07:37] VITALS: BP 108/69
[2017-04-18] MEDS: SENNA/DOCUSATE TABLET PO SCH (08:54)
[2017-04-18] MEDS: ASPIRIN 81 MG TABLET CHEW PO SCH (08:56)
[2017-04-18] MEDS: DULOXETINE 20 MG CAPSULE.DR PO SCH ×2 (08:56→21:36)
[2017-04-18] MEDS: metFORMIN 500 MG TABLET PO SCH ×2 (08:56→17:00)
[2017-04-18] MEDS: CHLORTHALIDONE 25 MG TABLET PO SCH (08:56)
[2017-04-18] MEDS: AMLODIPINE 5 MG TABLET PO SCH ×2 (08:57→21:35)
[2017-04-18] MEDS: FERROUS SULFATE 325 MG TABLET PO SCH ×2 (08:57→17:00)
[2017-04-18] MEDS: FAMOTIDINE 20 MG TABLET PO SCH (08:57)
[2017-04-18] MEDS: LISINOPRIL 20 MG TABLET PO SCH ×2 (08:57→21:35)
[2017-04-18] MEDS: ENOXAPARIN 40 MG/0.4 ML SQ SCH (11:00)
[2017-04-18] MEDS: metroNIDAZOLE 500 MG TABLET PO SCH ×2 (14:00→21:45)
[2017-04-18 15:13] LABS: BLOOD UREA NITROGEN 41 mg/dL (7-18)
[2017-04-18 20:00] VITALS: BP 97/56
[2017-04-18 21:12] VITALS: BP 104/60
[2017-04-18] MEDS: ATORVASTATIN 20 MG TABLET PO SCH (21:36)
[2017-04-18] MEDS ORDERED: POTASSIUM CHLORIDE 20 MEQ TAB.ER.PRT PO ONE (22:30)
[2017-04-19] MEDS: VANCOMYCIN 50 MG/ML ORAL SUSP PO SCH ×4 (01:29→20:28)
[2017-04-19 06:22] LABS: BLOOD UREA NITROGEN 43 mg/dL (7-18)
[2017-04-19] MEDS ORDERED: SODIUM CHLORIDE 0.9%, 500ML IVBOLUS ONE (07:00)
[2017-04-19] MEDS ORDERED: SODIUM CHLORIDE 0.9% 1,000 ML IV SCH (07:00)
[2017-04-19] MEDS: SENNA/DOCUSATE TABLET PO SCH (09:31)
[2017-04-19 09:41] VITALS: BP 138/69
[2017-04-19] MEDS: FERROUS SULFATE 325 MG TABLET PO SCH ×2 (09:44→18:10)
[2017-04-19] MEDS: CARVEDILOL 12.5 MG TABLET PO SCH ×2 (09:44→18:10)
[2017-04-19] MEDS: CHLORTHALIDONE 25 MG TABLET PO SCH (09:45)
[2017-04-19] MEDS: FAMOTIDINE 20 MG TABLET PO SCH (09:45)
[2017-04-19] MEDS: AMLODIPINE 5 MG TABLET PO SCH ×2 (09:45→20:27)
[2017-04-19] MEDS: DULOXETINE 20 MG CAPSULE.DR PO SCH ×2 (09:45→20:28)
[2017-04-19] MEDS: ASPIRIN 81 MG TABLET CHEW PO SCH (09:45)
[2017-04-19] MEDS: metFORMIN 500 MG TABLET PO SCH ×2 (09:45→18:10)
[2017-04-19] MEDS: LISINOPRIL 20 MG TABLET PO SCH ×2 (09:45→20:28)
[2017-04-19] MEDS: ENOXAPARIN 40 MG/0.4 ML SQ SCH (12:04)
[2017-04-19 18:08] VITALS: BP 132/69
[2017-04-19] MEDS: NS + 20MEQ KCL 1,000 ML IV SCH (18:10)
[2017-04-19 19:56] VITALS: BP 128/74
[2017-04-19] MEDS: ATORVASTATIN 20 MG TABLET PO SCH (20:27)
[2017-04-20 01:02] VITALS: BP 135/71
[2017-04-20] MEDS: NS + 20MEQ KCL 1,000 ML IV SCH (03:14)
[2017-04-20] MEDS: VANCOMYCIN 50 MG/ML ORAL SUSP PO SCH ×4 (03:14→22:56)
[2017-04-20 05:34] LABS: BLOOD UREA NITROGEN 22 mg/dL (7-18)
[2017-04-20] MEDS: CARVEDILOL 12.5 MG TABLET PO SCH ×2 (06:22→16:33)
[2017-04-20 06:23] VITALS: BP 158/69
[2017-04-20 08:19] VITALS: BP 134/76
[2017-04-20] MEDS: SENNA/DOCUSATE TABLET PO SCH (08:45)
[2017-04-20] MEDS: LISINOPRIL 20 MG TABLET PO SCH ×2 (08:52→22:57)
[2017-04-20] MEDS: FAMOTIDINE 20 MG TABLET PO SCH (08:52)
[2017-04-20] MEDS: DULOXETINE 20 MG CAPSULE.DR PO SCH ×2 (08:52→23:52)
[2017-04-20] MEDS: AMLODIPINE 5 MG TABLET PO SCH ×2 (08:52→22:57)
[2017-04-20] MEDS: ASPIRIN 81 MG TABLET CHEW PO SCH (08:53)
[2017-04-20] MEDS: POTASSIUM CHLORIDE 20 MEQ PACKET PO SCH (08:53)
[2017-04-20] MEDS: CHLORTHALIDONE 25 MG TABLET PO SCH (08:53)
[2017-04-20] MEDS: metFORMIN 500 MG TABLET PO SCH ×2 (08:53→16:33)
[2017-04-20] MEDS: FERROUS SULFATE 325 MG TABLET PO SCH ×2 (08:53→16:33)
[2017-04-20] MEDS: TAMSULOSIN 0.4 MG CAP.ER.24H PO SCH (11:14)
[2017-04-20] MEDS: ENOXAPARIN 40 MG/0.4 ML SQ SCH (11:14)
[2017-04-20] MEDS: HYDROcodone/APAP 5/325 TABLET PO PRN ×2 (11:25→16:33)
[2017-04-20 15:52] VITALS: BP 126/74
[2017-04-20 20:26] VITALS: BP 132/68
[2017-04-20 20:55] LABS: PATH.CAST-FLAG NOT PRESENT; SPERM-FLAG NOT PRESENT; SRC-FLAG NOT PRESENT; XTAL-FLAG NOT PRESENT; YLC-FLAG NOT PRESENT
[2017-04-20] MEDS: ATORVASTATIN 20 MG TABLET PO SCH (22:57)
[2017-04-21] MEDS: VANCOMYCIN 50 MG/ML ORAL SUSP PO SCH ×4 (03:46→21:13)
[2017-04-21 03:53] VITALS: BP 121/60
[2017-04-21 05:28] LABS: BLOOD UREA NITROGEN 16 mg/dL (7-18)
[2017-04-21] MEDS ORDERED: NS + 20MEQ KCL 1,000 ML IV SCH (07:00)
[2017-04-21] MEDS: CARVEDILOL 12.5 MG TABLET PO SCH ×2 (07:43→17:21)
[2017-04-21] MEDS: POTASSIUM CHLORIDE 20 MEQ PACKET PO SCH (08:00)
[2017-04-21 08:13] VITALS: BP 133/73
[2017-04-21] MEDS: metFORMIN 500 MG TABLET PO SCH ×2 (08:21→17:21)
[2017-04-21] MEDS: DULOXETINE 20 MG CAPSULE.DR PO SCH ×2 (08:21→21:13)
[2017-04-21] MEDS: FERROUS SULFATE 325 MG TABLET PO SCH ×2 (08:21→17:21)
[2017-04-21] MEDS: ASPIRIN 81 MG TABLET CHEW PO SCH (08:21)
[2017-04-21] MEDS: TAMSULOSIN 0.4 MG CAP.ER.24H PO SCH (08:21)
[2017-04-21] MEDS: CHLORTHALIDONE 25 MG TABLET PO SCH (08:22)
[2017-04-21] MEDS: AMLODIPINE 5 MG TABLET PO SCH ×2 (08:22→21:13)
[2017-04-21] MEDS: FAMOTIDINE 20 MG TABLET PO SCH (08:22)
[2017-04-21] MEDS: LISINOPRIL 20 MG TABLET PO SCH ×2 (08:23→21:14)
[2017-04-21] MEDS: SENNA/DOCUSATE TABLET PO SCH (08:23)
[2017-04-21] MEDS: ENOXAPARIN 40 MG/0.4 ML SQ SCH (11:16)
[2017-04-21 15:26] VITALS: BP 110/62
[2017-04-21 19:16] VITALS: BP 135/64
[2017-04-21] MEDS: ATORVASTATIN 20 MG TABLET PO SCH (21:14)
[2017-04-22] VITALS (7 sets, daily range): BP systolic 110–140; BP diastolic 59–77
[2017-04-22] MEDS: VANCOMYCIN 50 MG/ML ORAL SUSP PO SCH ×4 (03:40→23:12)
[2017-04-22] MEDS: CARVEDILOL 12.5 MG TABLET PO SCH ×2 (07:10→18:35)
[2017-04-22] MEDS: metFORMIN 500 MG TABLET PO SCH ×2 (09:53→16:01)
[2017-04-22] MEDS: FERROUS SULFATE 325 MG TABLET PO SCH ×2 (09:53→16:01)
[2017-04-22] MEDS: AMLODIPINE 5 MG TABLET PO SCH ×2 (09:53→23:12)
[2017-04-22] MEDS: CHLORTHALIDONE 25 MG TABLET PO SCH (09:53)
[2017-04-22] MEDS: LISINOPRIL 20 MG TABLET PO SCH ×2 (09:53→23:12)
[2017-04-22] MEDS: SENNA/DOCUSATE TABLET PO SCH (09:53)
[2017-04-22] MEDS: TAMSULOSIN 0.4 MG CAP.ER.24H PO SCH (09:53)
[2017-04-22] MEDS: ASPIRIN 81 MG TABLET CHEW PO SCH (09:54)
[2017-04-22] MEDS: POTASSIUM CHLORIDE 20 MEQ PACKET PO SCH (09:54)
[2017-04-22] MEDS: SIMETHICONE 80 MG CHEW TAB PO PRN ×2 (10:01→21:05)
[2017-04-22] MEDS: DULOXETINE 20 MG CAPSULE.DR PO SCH ×2 (10:01→23:12)
[2017-04-22] MEDS: ENOXAPARIN 40 MG/0.4 ML SQ SCH (12:08)
[2017-04-22] MEDS: ATORVASTATIN 20 MG TABLET PO SCH (23:12)
[2017-04-23 03:54] VITALS: BP 106/51
[2017-04-23] MEDS: VANCOMYCIN 50 MG/ML ORAL SUSP PO SCH ×4 (06:48→23:07)
[2017-04-23] MEDS: CARVEDILOL 12.5 MG TABLET PO SCH ×3 (06:48→17:22)
[2017-04-23 07:55] VITALS: BP 121/64
[2017-04-23] MEDS: AMLODIPINE 5 MG TABLET PO SCH ×2 (08:52→23:00)
[2017-04-23] MEDS: POTASSIUM CHLORIDE 20 MEQ PACKET PO SCH (08:52)
[2017-04-23] MEDS: FERROUS SULFATE 325 MG TABLET PO SCH ×2 (08:52→16:30)
[2017-04-23] MEDS: ASPIRIN 81 MG TABLET CHEW PO SCH (08:52)
[2017-04-23] MEDS: TAMSULOSIN 0.4 MG CAP.ER.24H PO SCH (08:52)
[2017-04-23] MEDS: metFORMIN 500 MG TABLET PO SCH ×2 (08:52→16:30)
[2017-04-23] MEDS: LISINOPRIL 20 MG TABLET PO SCH ×2 (08:53→23:00)
[2017-04-23] MEDS: CHLORTHALIDONE 25 MG TABLET PO SCH (08:53)
[2017-04-23] MEDS: DULOXETINE 20 MG CAPSULE.DR PO SCH ×2 (08:53→22:59)
[2017-04-23] MEDS: SENNA/DOCUSATE TABLET PO SCH (08:56)
[2017-04-23] MEDS: ENOXAPARIN 40 MG/0.4 ML SQ SCH (11:44)
[2017-04-23 13:27] VITALS: BP 115/68
[2017-04-23 19:30] VITALS: BP 119/57
[2017-04-23 22:58] VITALS: BP 109/55
[2017-04-23] MEDS: ATORVASTATIN 20 MG TABLET PO SCH (23:00)
[2017-04-24 01:14] VITALS: BP 113/80
[2017-04-24] MEDS: CARVEDILOL 12.5 MG TABLET PO SCH ×2 (05:57→18:09)
[2017-04-24] MEDS: VANCOMYCIN 50 MG/ML ORAL SUSP PO SCH ×3 (05:57→18:07)
[2017-04-24] MEDS: ACETAMINOPHEN 325 MG TABLET PO PRN (06:21)
[2017-04-24 07:40] VITALS: BP 115/68
[2017-04-24] MEDS: POTASSIUM CHLORIDE 20 MEQ PACKET PO SCH (07:59)
[2017-04-24] MEDS: FERROUS SULFATE 325 MG TABLET PO SCH ×2 (07:59→18:07)
[2017-04-24] MEDS: metFORMIN 500 MG TABLET PO SCH ×2 (07:59→18:07)
[2017-04-24] MEDS: SENNA/DOCUSATE TABLET PO SCH (08:01)
[2017-04-24] MEDS: DULOXETINE 20 MG CAPSULE.DR PO SCH ×2 (08:06→20:36)
[2017-04-24] MEDS: TAMSULOSIN 0.4 MG CAP.ER.24H PO SCH (08:06)
[2017-04-24] MEDS: CHLORTHALIDONE 25 MG TABLET PO SCH (08:06)
[2017-04-24] MEDS: AMLODIPINE 5 MG TABLET PO SCH ×2 (08:06→20:36)
[2017-04-24] MEDS: LISINOPRIL 20 MG TABLET PO SCH ×2 (08:06→20:37)
[2017-04-24] MEDS: ASPIRIN 81 MG TABLET CHEW PO SCH (08:13)
[2017-04-24] MEDS: ENOXAPARIN 40 MG/0.4 ML SQ SCH (10:54)
[2017-04-24 12:57] VITALS: BP 117/56
[2017-04-24 20:04] VITALS: BP 116/68
[2017-04-24] MEDS: ATORVASTATIN 20 MG TABLET PO SCH (20:36)
[2017-04-25] MEDS: VANCOMYCIN 50 MG/ML ORAL SUSP PO SCH ×4 (00:32→17:13)
[2017-04-25 00:58] VITALS: BP 124/64
[2017-04-25] MEDS: CARVEDILOL 12.5 MG TABLET PO SCH ×2 (06:27→17:12)
[2017-04-25 07:23] VITALS: BP 117/63
[2017-04-25] MEDS: POTASSIUM CHLORIDE 20 MEQ PACKET PO SCH (08:43)
[2017-04-25] MEDS: metFORMIN 500 MG TABLET PO SCH ×2 (08:43→17:12)
[2017-04-25] MEDS: FERROUS SULFATE 325 MG TABLET PO SCH ×2 (08:44→17:12)
[2017-04-25] MEDS: DULOXETINE 20 MG CAPSULE.DR PO SCH ×2 (08:45→21:01)
[2017-04-25] MEDS: ASPIRIN 81 MG TABLET CHEW PO SCH (08:45)
[2017-04-25] MEDS: TAMSULOSIN 0.4 MG CAP.ER.24H PO SCH (08:46)
[2017-04-25] MEDS: LISINOPRIL 20 MG TABLET PO SCH ×2 (08:47→21:02)
[2017-04-25] MEDS: SENNA/DOCUSATE TABLET PO SCH (08:47)
[2017-04-25] MEDS: AMLODIPINE 5 MG TABLET PO SCH ×2 (08:47→21:02)
[2017-04-25] MEDS: CHLORTHALIDONE 25 MG TABLET PO SCH (08:48)
[2017-04-25] MEDS: ENOXAPARIN 40 MG/0.4 ML SQ SCH (11:33)
[2017-04-25 15:19] VITALS: BP 122/64
[2017-04-25 19:13] VITALS: BP 115/62
[2017-04-25] MEDS: ATORVASTATIN 20 MG TABLET PO SCH (21:02)
[2017-04-26] MEDS: VANCOMYCIN 50 MG/ML ORAL SUSP PO SCH ×5 (00:23→23:58)
[2017-04-26 01:31] VITALS: BP 114/60
[2017-04-26] MEDS: CARVEDILOL 12.5 MG TABLET PO SCH ×2 (06:15→17:41)
[2017-04-26 08:04] VITALS: BP 135/63
[2017-04-26] MEDS: TAMSULOSIN 0.4 MG CAP.ER.24H PO SCH (08:11)
[2017-04-26] MEDS: ASPIRIN 81 MG TABLET CHEW PO SCH (08:11)
[2017-04-26] MEDS: POTASSIUM CHLORIDE 20 MEQ PACKET PO SCH (08:11)
[2017-04-26] MEDS: FERROUS SULFATE 325 MG TABLET PO SCH ×2 (08:11→17:40)
[2017-04-26] MEDS: metFORMIN 500 MG TABLET PO SCH ×2 (08:12→17:41)
[2017-04-26] MEDS: LISINOPRIL 20 MG TABLET PO SCH ×2 (08:12→22:13)
[2017-04-26] MEDS: CHLORTHALIDONE 25 MG TABLET PO SCH (08:12)
[2017-04-26] MEDS: AMLODIPINE 5 MG TABLET PO SCH ×2 (08:12→22:12)
[2017-04-26] MEDS: DULOXETINE 20 MG CAPSULE.DR PO SCH ×2 (08:12→22:12)
[2017-04-26] MEDS: ENOXAPARIN 40 MG/0.4 ML SQ SCH (10:44)
[2017-04-26 14:16] VITALS: BP 103/48
[2017-04-26 17:42] VITALS: BP 129/67
[2017-04-26 21:03] VITALS: BP 125/72
[2017-04-26] MEDS: ATORVASTATIN 20 MG TABLET PO SCH (22:12)
[2017-04-27] MEDS: SIMETHICONE 80 MG CHEW TAB PO PRN (01:10)
[2017-04-27 01:15] VITALS: BP 117/62
[2017-04-27] MEDS: CARVEDILOL 12.5 MG TABLET PO SCH ×2 (05:42→17:02)
[2017-04-27] MEDS: VANCOMYCIN 50 MG/ML ORAL SUSP PO SCH ×3 (05:42→17:00)
[2017-04-27 08:29] VITALS: BP 98/43
[2017-04-27] MEDS: LISINOPRIL 20 MG TABLET PO SCH ×2 (08:37→22:00)
[2017-04-27] MEDS: ASPIRIN 81 MG TABLET CHEW PO SCH (08:38)
[2017-04-27] MEDS: FERROUS SULFATE 325 MG TABLET PO SCH ×2 (08:38→17:00)
[2017-04-27] MEDS: POTASSIUM CHLORIDE 20 MEQ PACKET PO SCH (08:38)
[2017-04-27] MEDS: metFORMIN 500 MG TABLET PO SCH ×2 (08:38→17:00)
[2017-04-27] MEDS: DULOXETINE 20 MG CAPSULE.DR PO SCH ×2 (08:39→21:59)
[2017-04-27] MEDS: TAMSULOSIN 0.4 MG CAP.ER.24H PO SCH (08:39)
[2017-04-27] MEDS: CHLORTHALIDONE 25 MG TABLET PO SCH (08:43)
[2017-04-27] MEDS: AMLODIPINE 5 MG TABLET PO SCH ×2 (08:43→21:59)
[2017-04-27] MEDS: ENOXAPARIN 40 MG/0.4 ML SQ SCH (11:42)
[2017-04-27 13:11] VITALS: BP 111/49
[2017-04-27] MEDS: PSYLLIUM PACKET PO SCH (13:11)
[2017-04-27 17:02] VITALS: BP 111/60
[2017-04-27 20:02] VITALS: BP 117/69
[2017-04-27] MEDS: ATORVASTATIN 20 MG TABLET PO SCH (21:59)
[2017-04-28] MEDS: VANCOMYCIN 50 MG/ML ORAL SUSP PO SCH ×5 (00:08→23:30)
[2017-04-28 01:43] VITALS: BP 118/76
[2017-04-28] MEDS: ACETAMINOPHEN 325 MG TABLET PO PRN ×2 (04:03→22:19)
[2017-04-28 05:51] VITALS: BP 122/68
[2017-04-28] MEDS: CARVEDILOL 12.5 MG TABLET PO SCH ×2 (05:53→16:17)
[2017-04-28 07:56] VITALS: BP 120/72
[2017-04-28] MEDS: POTASSIUM CHLORIDE 20 MEQ PACKET PO SCH (08:15)
[2017-04-28] MEDS: ASPIRIN 81 MG TABLET CHEW PO SCH (08:15)
[2017-04-28] MEDS: DULOXETINE 20 MG CAPSULE.DR PO SCH ×2 (08:15→20:48)
[2017-04-28] MEDS: metFORMIN 500 MG TABLET PO SCH ×2 (08:15→16:17)
[2017-04-28] MEDS: TAMSULOSIN 0.4 MG CAP.ER.24H PO SCH (08:15)
[2017-04-28] MEDS: FERROUS SULFATE 325 MG TABLET PO SCH ×2 (08:15→16:17)
[2017-04-28] MEDS: LISINOPRIL 20 MG TABLET PO SCH ×2 (08:16→20:48)
[2017-04-28] MEDS: AMLODIPINE 5 MG TABLET PO SCH ×2 (08:16→20:48)
[2017-04-28] MEDS: CHLORTHALIDONE 25 MG TABLET PO SCH (08:16)
[2017-04-28] MEDS: PSYLLIUM PACKET PO SCH (08:16)
[2017-04-28] MEDS: ENOXAPARIN 40 MG/0.4 ML SQ SCH (12:17)
[2017-04-28 15:24] VITALS: BP 90/60
[2017-04-28 19:18] VITALS: BP 140/77
[2017-04-28] MEDS: ATORVASTATIN 20 MG TABLET PO SCH (20:48)
[2017-04-29 02:19] VITALS: BP 104/50
[2017-04-29] MEDS: VANCOMYCIN 50 MG/ML ORAL SUSP PO SCH ×4 (05:26→23:50)
[2017-04-29] MEDS: CARVEDILOL 12.5 MG TABLET PO SCH ×2 (05:27→17:09)
[2017-04-29 07:47] VITALS: BP 120/64
[2017-04-29] MEDS: POTASSIUM CHLORIDE 20 MEQ PACKET PO SCH (09:42)
[2017-04-29] MEDS: PSYLLIUM PACKET PO SCH (09:42)
[2017-04-29] MEDS: AMLODIPINE 5 MG TABLET PO SCH ×2 (09:43→23:45)
[2017-04-29] MEDS: TAMSULOSIN 0.4 MG CAP.ER.24H PO SCH (09:43)
[2017-04-29] MEDS: LISINOPRIL 20 MG TABLET PO SCH ×2 (09:43→23:46)
[2017-04-29] MEDS: FERROUS SULFATE 325 MG TABLET PO SCH ×2 (09:43→17:09)
[2017-04-29] MEDS: DULOXETINE 20 MG CAPSULE.DR PO SCH ×2 (09:43→23:45)
[2017-04-29] MEDS: metFORMIN 500 MG TABLET PO SCH ×2 (09:43→17:09)
[2017-04-29] MEDS: ASPIRIN 81 MG TABLET CHEW PO SCH (09:43)
[2017-04-29] MEDS: CHLORTHALIDONE 25 MG TABLET PO SCH (09:43)
[2017-04-29] MEDS: ENOXAPARIN 40 MG/0.4 ML SQ SCH (12:18)
[2017-04-29 15:52] VITALS: BP 112/52
[2017-04-29 20:29] VITALS: BP 120/70
[2017-04-29] MEDS: ATORVASTATIN 20 MG TABLET PO SCH (23:45)
[2017-04-30 00:24] VITALS: BP 108/71
[2017-04-30 06:22] VITALS: BP 126/55
[2017-04-30] MEDS: VANCOMYCIN 50 MG/ML ORAL SUSP PO SCH ×3 (06:23→17:35)
[2017-04-30] MEDS: CARVEDILOL 12.5 MG TABLET PO SCH ×2 (06:23→17:34)
[2017-04-30] MEDS: POTASSIUM CHLORIDE 20 MEQ PACKET PO SCH (08:37)
[2017-04-30] MEDS: PSYLLIUM PACKET PO SCH (08:37)
[2017-04-30] MEDS: CHLORTHALIDONE 25 MG TABLET PO SCH (08:38)
[2017-04-30 08:39] VITALS: BP 117/61
[2017-04-30] MEDS: FERROUS SULFATE 325 MG TABLET PO SCH ×2 (08:41→17:35)
[2017-04-30] MEDS: AMLODIPINE 5 MG TABLET PO SCH (08:41)
[2017-04-30] MEDS: LISINOPRIL 20 MG TABLET PO SCH ×2 (08:41→20:23)
[2017-04-30] MEDS: DULOXETINE 20 MG CAPSULE.DR PO SCH ×2 (08:41→20:23)
[2017-04-30] MEDS: metFORMIN 500 MG TABLET PO SCH ×2 (08:41→17:34)
[2017-04-30] MEDS: TAMSULOSIN 0.4 MG CAP.ER.24H PO SCH (08:41)
[2017-04-30] MEDS: ASPIRIN 81 MG TABLET CHEW PO SCH (08:41)
[2017-04-30] MEDS: ACETAMINOPHEN 325 MG TABLET PO PRN ×2 (09:59→20:24)
[2017-04-30] MEDS ORDERED: LISI-420 PO (10:28)
[2017-04-30] MEDS ORDERED: LOVA20TA2 PO (10:28)
[2017-04-30] MEDS: ENOXAPARIN 40 MG/0.4 ML SQ SCH (11:40)
[2017-04-30 14:59] VITALS: BP 135/71
[2017-04-30 20:06] VITALS: BP 143/64
[2017-04-30] MEDS: ATORVASTATIN 20 MG TABLET PO SCH (20:23)
[2017-05-01] MEDS: VANCOMYCIN 50 MG/ML ORAL SUSP PO SCH ×3 (00:14→13:23)
[2017-05-01 05:12] VITALS: BP 148/82
[2017-05-01] MEDS: CARVEDILOL 12.5 MG TABLET PO SCH (05:26)
[2017-05-01 07:38] VITALS: BP 112/71
[2017-05-01] MEDS: FERROUS SULFATE 325 MG TABLET PO SCH (10:41)
[2017-05-01] MEDS: ASPIRIN 81 MG TABLET CHEW PO SCH (10:41)
[2017-05-01] MEDS: POTASSIUM CHLORIDE 20 MEQ PACKET PO SCH (10:41)
[2017-05-01] MEDS: TAMSULOSIN 0.4 MG CAP.ER.24H PO SCH (10:41)
[2017-05-01] MEDS: LISINOPRIL 20 MG TABLET PO SCH (10:42)
[2017-05-01] MEDS: PSYLLIUM PACKET PO SCH (10:42)
[2017-05-01] MEDS: metFORMIN 500 MG TABLET PO SCH (11:51)
[2017-05-01] MEDS: ENOXAPARIN 40 MG/0.4 ML SQ SCH (11:51)
[2017-05-01] MEDS: DULOXETINE 20 MG CAPSULE.DR PO SCH (11:51)
[2017-05-01 13:56] VITALS: BP 121/72
== END 2017-05-01 15:45 | disposition home or self-care (01) | DRG 871 ==
LOC: ED 08:20 → EDIP 09:56 → 3NE 13:11 → 4WST 18:51 → 3E 04-14 10:13 → 4NOR 04-18 22:26
PROVIDERS: ADMIT Family Medicine; ATTEND Family Medicine
DX: A41.9 Sepsis, unspecified organism (principal); I63.9 Cerebral infarction, unspecified; A04.7 Enterocolitis due to Clostridium difficile; E46 Unspecified protein-calorie malnutrition; F33.1 Major depressive disorder, recurrent, moderate; R45.851 Suicidal ideations; D50.9 Iron deficiency anemia, unspecified; E87.6 Hypokalemia; E86.0 Dehydration; G43.909 Migraine, unspecified, not intractable, without status migrainosus; L40.50 Arthropathic psoriasis, unspecified; E11.65 Type 2 diabetes mellitus with hyperglycemia; F12.10 Cannabis abuse, uncomplicated; Z66 Do not resuscitate; G89.29 Other chronic pain; Z79.899 Other long term (current) drug therapy; I10 Essential (primary) hypertension; M19.90 Unspecified osteoarthritis, unspecified site; N40.1 Benign prostatic hyperplasia with lower urinary tract symptoms; R33.8 Other retention of urine; Z59.0 Homelessness; Z79.84 Long term (current) use of oral hypoglycemic drugs; I25.2 Old myocardial infarction; Z81.8 Family history of other mental and behavioral disorders; Z82.3 Family history of stroke; Z86.73 Personal history of transient ischemic attack (TIA), and cerebral infarction without residual deficits; Z68.25 Body mass index [BMI] 25.0-25.9, adult; Z88.8 Allergy status to other drugs, medicaments and biological substances; Z80.0 Family history of malignant neoplasm of digestive organs
CPT/HCPCS: 36415; 70450; 70553; 71020; 80048; 80053; 80061; 80307; 80329; 81001; 82040; 82728; 82962; 83036; 83540; 83550; 83605; 83735; 84145; 84443; 84466; 85025; 85651; 86140; 86200; 86431; 87040; 87324; 93005; 93306; 93880; 96361; 96365; 96366; 96375; J0696; J1650; J1815; J1885; J2405; J2543; J3370; J3480; 92523-GN; G0480; J0360; J2060; J2270; J7030; J7040; J7120; J7512

== ENCOUNTER 2017-05-16 09:03 | Emergency (ER) | payer SELFPAY ==
[~2017-05-16] VITALS: Ht 170.2 cm; Wt 68.9 kg
[~2017-05-16 09:03] MED LIST changes: +ATOR20TA9 PO; +CARV12.543 PO; +HYDR-3240 PO; +LISI-420 PO; +LOVA20TA2 PO; +OLAN2.5T5 PO; +TRAM50TA2 PO
[2017-05-16 09:05] VITALS: BP 149/93
[2017-05-16] MEDS ORDERED: HYDROcodone/APAP 5/325 TABLET ONE (09:37)
[2017-05-16] MEDS ORDERED: HYDROcodone/APAP 5/325 TABLET PO ONE (10:00)
== END 2017-05-16 10:52 | disposition home or self-care (01) ==
LOC: ED 10:26
DX: S22.32XA Fracture of one rib, left side, initial encounter for closed fracture (principal); I10 Essential (primary) hypertension; E11.65 Type 2 diabetes mellitus with hyperglycemia; I48.91 Unspecified atrial fibrillation; Z88.6 Allergy status to analgesic agent; W06.XXXA Fall from bed, initial encounter; Y93.89 Activity, other specified; Y92.89 Other specified places as the place of occurrence of the external cause; Y99.8 Other external cause status

== ENCOUNTER 2017-06-04 07:25 | Emergency (ER) | payer SELFPAY ==
[~2017-06-04] VITALS: Ht 170.2 cm; Wt 64.0 kg
[2017-06-04] MEDS ORDERED: METO50TA82 PO (07:47)
[2017-06-04] MEDS ORDERED: LISI-170 PO (07:47)
[2017-06-04] MEDS ORDERED: MAALOX/HYOSCYAMINE/LIDOCAINE 45 ML BTL PO ONE (08:00)
[2017-06-04] MEDS ORDERED: MORPHINE SULFATE 4 MG/ML, 1ML IVPush PRN (08:00)
[2017-06-04] MEDS ORDERED: SODIUM CHLORIDE FLUSH 10ML SYR IVF ONE (08:00)
[2017-06-04] MEDS ORDERED: NITROGLYCERIN SINGLE TAB 0.4 MG SL PRN (08:00)
[2017-06-04] MEDS ORDERED: ASPIRIN 81 MG TABLET CHEW PO ONE (08:00)
[2017-06-04] MEDS ORDERED: SODIUM CHLORIDE 0.9% 1,000ML IVBOLUS ONE (08:00)
[2017-06-04] MEDS ORDERED: MAALOX/HYOSCYAMINE/LIDOCAINE 45 ML BTL ONE (08:08)
[2017-06-04] MEDS ORDERED: ASPIRIN 81 MG TABLET CHEW ONE (08:08)
[2017-06-04] MEDS ORDERED: MORPHINE SULFATE 4 MG/ML, 1ML ONE (08:08)
[2017-06-04 08:21] LABS: ASPARTATE AMINO TRANSFERASE 18 U/L (15-37); BLOOD UREA NITROGEN 31 mg/dL (7-18)
[2017-06-04 08:26] LABS: IS PT STATUS REG ER OR PRE ER? YES
[2017-06-04 09:45] VITALS: BP 128/67
[2017-06-04 10:41] LABS: IS PT STATUS REG ER OR PRE ER? YES
== END 2017-06-04 12:09 | disposition home or self-care (01) ==
LOC: ED 11:55
DX: R07.89 Other chest pain (principal); I10 Essential (primary) hypertension; E87.6 Hypokalemia; E11.65 Type 2 diabetes mellitus with hyperglycemia; I48.91 Unspecified atrial fibrillation; Z90.49 Acquired absence of other specified parts of digestive tract; Z86.73 Personal history of transient ischemic attack (TIA), and cerebral infarction without residual deficits
CPT/HCPCS: 36415; 71010; 80053; 83880; 84484; 85025; 85610; 85730; 93005; 96361; 96374; 99285; J7030

== ENCOUNTER 2017-06-07 10:45 | Inpatient (IN) | payer MEDICARE ==
[~2017-06-07] VITALS: Ht 170.2 cm; Wt 69.7 kg
[2017-06-07] MEDS ORDERED: MORPHINE SULFATE 4 MG/ML, 1ML IVPush PRN (11:00)
[2017-06-07] MEDS ORDERED: NITROGLYCERIN SINGLE TAB 0.4 MG SL PRN (11:00)
[2017-06-07] MEDS ORDERED: SODIUM CHLORIDE 0.9% 1,000ML IVBOLUS ONE (11:00)
[2017-06-07] MEDS ORDERED: SODIUM CHLORIDE FLUSH 10ML SYR IVF ONE (11:00)
[2017-06-07] MEDS ORDERED: ASPIRIN 81 MG TABLET CHEW PO ONE (11:00)
[2017-06-07] MEDS ORDERED: MAALOX/HYOSCYAMINE/LIDOCAINE 45 ML BTL PO ONE (11:30)
[2017-06-07] MEDS ORDERED: NITROGLYCERIN SINGLE TAB 0.4 MG SL ONE ×2 (11:44→13:02)
[2017-06-07] MEDS ORDERED: MAALOX/HYOSCYAMINE/LIDOCAINE 45 ML BTL ONE (11:44)
[2017-06-07 11:57] LABS: HEMATOCRIT 39.2 % (39.2-51.8); HEMOGLOBIN 13.1 g/dL (13.7-18.0); WHITE BLOOD COUNT 8.4 x10^3/uL (3.4-10)
[2017-06-07 12:06] LABS: BLOOD UREA NITROGEN 18 mg/dL (7-18)
[2017-06-07 12:13] LABS: ASPARTATE AMINO TRANSFERASE 15 U/L (15-37); IS PT STATUS REG ER OR PRE ER? YES
[2017-06-07] MEDS ORDERED: PERMETHRIN CRM 5%, 60GM TP ONE (15:00)
[2017-06-07] MEDS ORDERED: NITROGLYCERIN 0.4 MG BOTTLE (25 TABS) SL PRN (15:00)
[2017-06-07] MEDS ORDERED: LABETALOL 5MG/ML, 20ML IVPush PRN ×2 (15:00→21:00)
[2017-06-07] MEDS ORDERED: ONDANSETRON 2MG/ML, 2ML IVPush PRN (15:00)
[2017-06-07] MEDS ORDERED: BISACODYL 10 MG SUPP PR PRN (15:00)
[2017-06-07] MEDS ORDERED: NITROGLYCERIN 0.4 MG/SPRAY SL PRN (15:00)
[2017-06-07] MEDS ORDERED: POLYETHYLENE GLYCOL 17 GM PACKET PO PRN (15:00)
[2017-06-07 15:51] LABS: IS PT STATUS REG ER OR PRE ER? YES
[2017-06-07 16:37] VITALS: BP 188/90
[2017-06-07] MEDS: ENOXAPARIN 40 MG/0.4 ML SQ SCH (17:30)
[2017-06-07 19:53] VITALS: BP 188/90
[2017-06-07 20:18] VITALS: BP 188/94
[2017-06-07] MEDS: LOVASTATIN 40 MG TABLET PO SCH (20:21)
[2017-06-07] MEDS: MAALOX/HYOSCYAMINE/LIDOCAINE 45 ML BTL PO PRN (20:21)
[2017-06-07] MEDS: ENALAPRILAT 1.25 MG/ML, 2ML IVPush PRN ×2 (20:40→21:50)
[2017-06-07 21:13] LABS: IS PT STATUS REG ER OR PRE ER? NO
[2017-06-07 21:44] VITALS: BP 175/97
[2017-06-07 22:20] VITALS: BP 150/79
[2017-06-08 00:59] VITALS: BP 146/78
[2017-06-08 05:39] LABS: HEMATOCRIT 32.2 % (39.2-51.8); HEMOGLOBIN 10.8 g/dL (13.7-18.0); WHITE BLOOD COUNT 7.7 x10^3/uL (3.4-10)
[2017-06-08 05:45] LABS: BLOOD UREA NITROGEN 23 mg/dL (7-18)
[2017-06-08 05:46] VITALS: BP 169/95
[2017-06-08] MEDS: CARVEDILOL 3.125 MG TABLET PO SCH (05:52)
[2017-06-08 05:57] LABS: ASPARTATE AMINO TRANSFERASE 9 U/L (15-37)
[2017-06-08 06:49] VITALS: BP 130/72
[2017-06-08] MEDS: MAALOX/HYOSCYAMINE/LIDOCAINE 45 ML BTL PO PRN (08:32)
[2017-06-08] MEDS: LISINOPRIL 20 MG TABLET PO SCH (08:32)
[2017-06-08] MEDS: ASPIRIN 81 MG TABLET CHEW PO SCH (08:32)
[2017-06-08 12:06] VITALS: BP 145/79
[2017-06-08] MEDS: ENOXAPARIN 40 MG/0.4 ML SQ SCH (15:00)
[2017-06-08 18:29] VITALS: BP 148/78
[2017-06-08] MEDS: LOVASTATIN 40 MG TABLET PO SCH (21:00)
[2017-06-09 00:54] VITALS: BP 140/75
[2017-06-09] MEDS: MAALOX/HYOSCYAMINE/LIDOCAINE 45 ML BTL PO PRN ×3 (03:32→18:00)
[2017-06-09] MEDS: CARVEDILOL 3.125 MG TABLET PO SCH (06:00)
[2017-06-09] MEDS ORDERED: CETIRIZINE 10 MG TABLET PO PRN (08:00)
[2017-06-09 08:52] VITALS: BP 137/71
[2017-06-09] MEDS: ASPIRIN 81 MG TABLET CHEW PO SCH (11:22)
[2017-06-09] MEDS: LISINOPRIL 20 MG TABLET PO SCH (11:22)
[2017-06-09 13:48] VITALS: BP 132/78
[2017-06-09 14:46] VITALS: BP 169/75
[2017-06-09] MEDS: ENOXAPARIN 40 MG/0.4 ML SQ SCH (18:00)
[2017-06-09] MEDS: LOVASTATIN 40 MG TABLET PO SCH (22:01)
[2017-06-10 01:43] VITALS: BP 156/80
[2017-06-10] MEDS ORDERED: morphine SULFATE 10 MG/ML, 1ML IVPush ONE (05:00)
[2017-06-10] MEDS ORDERED: PANTOPRAZOLE 40 MG IV IVPush ONE (05:00)
[2017-06-10] MEDS ORDERED: OMEPRAZOLE 20 MG CAPSULE.DR PO SCH (07:30)
[2017-06-10 08:28] VITALS: BP 194/97
[2017-06-10] MEDS: LISINOPRIL 20 MG TABLET PO SCH (08:30)
[2017-06-10 11:57] VITALS: BP 165/90
[2017-06-10 12:00] VITALS: BP 165/90
[2017-06-10] MEDS ORDERED: PERMETHRIN CRM 5%, 60GM TP SCH (12:30)
[2017-06-10] MEDS: ASPIRIN 81 MG TABLET CHEW PO SCH (13:29)
[2017-06-10] MEDS: CARVEDILOL 3.125 MG TABLET PO SCH (13:29)
[2017-06-10] MEDS: ENOXAPARIN 40 MG/0.4 ML SQ SCH (18:43)
[2017-06-10] MEDS: MAALOX/HYOSCYAMINE/LIDOCAINE 45 ML BTL PO PRN ×2 (18:43→22:36)
[2017-06-10 20:09] VITALS: BP 185/89
[2017-06-10] MEDS: LOVASTATIN 40 MG TABLET PO SCH (20:37)
[2017-06-10] MEDS: OMEPRAZOLE 20 MG CAPSULE.DR PO SCH (20:37)
[2017-06-10 22:11] VITALS: BP 164/90
[2017-06-11 01:43] VITALS: BP 114/69
[2017-06-11 06:53] VITALS: BP 157/81
[2017-06-11] MEDS ORDERED: REGADENOSON 0.4 MG/5 ML SYRINGE ONE (08:03)
[2017-06-11 13:01] VITALS: BP 165/83
[2017-06-11] MEDS: LISINOPRIL 20 MG TABLET PO SCH (13:47)
[2017-06-11] MEDS: ASPIRIN 81 MG TABLET CHEW PO SCH (13:47)
[2017-06-11] MEDS: OMEPRAZOLE 20 MG CAPSULE.DR PO SCH ×2 (13:47→20:08)
[2017-06-11] MEDS: CARVEDILOL 3.125 MG TABLET PO SCH (13:48)
[2017-06-11 17:30] VITALS: BP 202/95
[2017-06-11 17:31] VITALS: BP 181/93
[2017-06-11] MEDS: ENOXAPARIN 40 MG/0.4 ML SQ SCH (19:24)
[2017-06-11 20:03] VITALS: BP 145/70
[2017-06-11] MEDS: LOVASTATIN 40 MG TABLET PO SCH (20:08)
[2017-06-11] MEDS: CARVEDILOL 6.25 MG TABLET PO SCH (20:08)
[2017-06-12 08:37] VITALS: BP 152/79
[2017-06-12] MEDS: OMEPRAZOLE 20 MG CAPSULE.DR PO SCH (09:23)
[2017-06-12] MEDS: LISINOPRIL 20 MG TABLET PO SCH (09:23)
[2017-06-12] MEDS: CARVEDILOL 6.25 MG TABLET PO SCH (09:23)
[2017-06-12] MEDS: ASPIRIN 81 MG TABLET CHEW PO SCH (09:24)
[2017-06-12] MEDS: MAALOX/HYOSCYAMINE/LIDOCAINE 45 ML BTL PO PRN (10:00)
[2017-06-12] MEDS ORDERED: CARV6.2512 PO (11:55)
[2017-06-12] MEDS ORDERED: ASPI-515 PO (11:55)
[2017-06-12] MEDS ORDERED: CETI10TA18 PO (11:55)
[2017-06-12] MEDS ORDERED: OMEP-110 PO (11:55)
[2017-06-12] MEDS ORDERED: LISI-170 PO (11:55)
[2017-06-12] MEDS ORDERED: LOVA40TA2 PO (11:55)
[2017-06-12] MEDS ORDERED: PERM60CR17 TP (11:55)
== END 2017-06-12 12:45 | DRG 292 ==
LOC: ED 11:02 → EDIP 12:58 → 4EST 16:24 → 3E 06-11 17:20
PROVIDERS: ADMIT Family Medicine; ATTEND Family Medicine
DX: I11.0 Hypertensive heart disease with heart failure (principal); R45.851 Suicidal ideations; I48.91 Unspecified atrial fibrillation; F32.9 Major depressive disorder, single episode, unspecified; F19.20 Other psychoactive substance dependence, uncomplicated; B86 Scabies; E11.9 Type 2 diabetes mellitus without complications; I50.32 Chronic diastolic (congestive) heart failure; I25.2 Old myocardial infarction; R07.9 Chest pain, unspecified; Z88.8 Allergy status to other drugs, medicaments and biological substances; Z80.0 Family history of malignant neoplasm of digestive organs; I25.10 Atherosclerotic heart disease of native coronary artery without angina pectoris; K21.9 Gastro-esophageal reflux disease without esophagitis; Z59.0 Homelessness; Z78.9 Other specified health status; Z79.899 Other long term (current) drug therapy; Z82.3 Family history of stroke; Z86.73 Personal history of transient ischemic attack (TIA), and cerebral infarction without residual deficits; Z87.11 Personal history of peptic ulcer disease; Z91.5 Personal history of self-harm; Z95.5 Presence of coronary angioplasty implant and graft; K29.70 Gastritis, unspecified, without bleeding
CPT/HCPCS: 36415; 71010; 76700; 78452; 80053; 80061; 82962; 83880; 84443; 84484; 85025; 85610; 85730; 93005; 93017; 96360; J1650; J2785; A9502; C9113; C9898; J2270; J7030

== ENCOUNTER 2017-07-01 22:23 | Emergency (ER) | payer MEDICARE ==
[~2017-07-01] VITALS: Ht 170.2 cm; Wt 67.3 kg
[~2017-07-01 22:23] MED LIST changes: +CARV6.2512 PO; +CETI10TA18 PO; +DICL100G19 TP; -DICL100G8 TP; +FERR325T18 PO; -FERR325T20 PO; +LOVA40TA2 PO; +OLAN2.5T10 PO; -OLAN2.5T5 PO; -OXYC10TA32 PO; +OXYC10TA47 PO; +PERM60CR17 TP; -SUCR1ORA2 PO; +SUCR1ORA5 PO; -SUCR1TAB26 PO; +SUCR1TAB33 PO
[2017-07-01 22:25] VITALS: BP 168/84
[2017-07-01] MEDS ORDERED: DIAZEPAM 5 MG TABLET ONE (22:46)
[2017-07-01] MEDS ORDERED: OXYcodone/APAP 5/325MG TABLET ONE (22:47)
[2017-07-01] MEDS ORDERED: DIAZEPAM 5 MG TABLET PO ONE (23:00)
[2017-07-01] MEDS ORDERED: IBUPROFEN 200 MG TABLET PO ONE (23:00)
[2017-07-01] MEDS ORDERED: OXYcodone/APAP 5/325MG TABLET PO ONE (23:00)
== END 2017-07-01 23:52 | disposition home or self-care (01) ==
LOC: ED 23:50
DX: S33.5XXA Sprain of ligaments of lumbar spine, initial encounter (principal); M51.36 Other intervertebral disc degeneration, lumbar region; E11.65 Type 2 diabetes mellitus with hyperglycemia; I11.9 Hypertensive heart disease without heart failure; W19.XXXA Unspecified fall, initial encounter; Y93.89 Activity, other specified; Y92.89 Other specified places as the place of occurrence of the external cause; Y99.9 Unspecified external cause status
CPT/HCPCS: 72110; 99284

== ENCOUNTER 2017-08-02 21:46 | Emergency (ER) | payer MEDICARE, OTHER ==
[~2017-08-02] VITALS: Ht 170.2 cm; Wt 70.0 kg
[2017-08-02] MEDS ORDERED: ACETAMINOPHEN 325 MG TABLET ONE (22:44)
[2017-08-02] MEDS ORDERED: ACETAMINOPHEN 325 MG TABLET PO ONE (23:00)
[2017-08-02 23:24] VITALS: BP 188/80
== END 2017-08-02 23:29 | disposition home or self-care (01) ==
LOC: ED 22:54
DX: G43.C0 Periodic headache syndromes in child or adult, not intractable (principal); E11.65 Type 2 diabetes mellitus with hyperglycemia; I10 Essential (primary) hypertension; Z59.0 Homelessness; Z90.49 Acquired absence of other specified parts of digestive tract
CPT/HCPCS: 99282

== ENCOUNTER 2017-11-12 15:48 | Inpatient (IN) | payer MEDICARE, OTHER ==
[~2017-11-12] VITALS: Ht 170.2 cm; Wt 74.4 kg
[2017-11-12 16:20] LABS: BASOPHILS # (AUTO) 0.02 x10^3/uL (0-0.1); BASOPHILS % (AUTO) 0 % (0-1); EOSINOPHILS # (AUTO) 0.01 x10^3/uL (0-0.4); EOSINOPHILS % (AUTO) 0 % (1-7); LYMPHOCYTES # (AUTO) 1.74 x10^3/uL (1-3.4); LYMPHOCYTES % (AUTO) 19 % (22-44); MD NO; MEAN CORPUSCULAR HGB CONC 32.6 g/dL (33.2-36.2); MEAN CORPUSCULAR VOLUME 73.7 fL (81-97); MEAN PLATELET VOLUME 7.6 fL (7.4-10.4); MONOCYTES # (AUTO) 0.41 x10^3/uL (0.2-0.8); MONOCYTES % (AUTO) 4 % (2-9); NEUTROPHILS # (AUTO) 7.06 x10^3/uL (1.8-6.8); NEUTROPHILS % (AUTO) 76 % (42-75); PLATELET COUNT 342 x10^3/uL (130-400); RED BLOOD COUNT 3.41 x10^6/uL (4.38-5.82); RED CELL DISTRIBUTION WIDTH 18.9 % (9.4-14.8)
[2017-11-12 16:32] LABS: ALANINE AMINOTRANSFERASE 16 U/L (12-78); ALBUMIN 3.3 g/dL (3.4-5.0); ANION GAP 7 mmol/L (5-15); CALCIUM 8.7 mg/dL (8.5-10.1); CHLORIDE 109 mmol/L (98-107); CREATININE 0.75 mg/dL (0.7-1.3)
[2017-11-12 16:37] LABS: ALKALINE PHOSPHATASE 186 U/L (45-117); BILIRUBIN,TOTAL 0.3 mg/dL (0.2-1.0); TOTAL PROTEIN 7.3 g/dL (6.4-8.2); TROPONIN I < 0.015 ng/mL (0.000-0.045)
[2017-11-12 18:10] LABS: AMPHETAMINE SCREEN, URINE Negative (Negative); BARBITURATE SCREEN, URINE Negative (Negative); BENZODIAZEPINE SCREEN, URINE Negative (Negative); CANNABINOID SCREEN, URINE Negative (Negative); COCAINE SCREEN, URINE Negative (Negative); METHADONE SCREEN, URINE Negative (Negative); OPIATE SCREEN, URINE Negative (Negative)
[2017-11-12] MEDS ORDERED: LABETALOL 5MG/ML, 20ML ONE (18:45)
[2017-11-12] MEDS ORDERED: LABETALOL 5MG/ML, 20ML IVPush ONE (19:00)
[2017-11-12] MEDS ORDERED: BISACODYL 10 MG SUPP PR PRN (20:00)
[2017-11-12] MEDS ORDERED: POLYETHYLENE GLYCOL 17 GM PACKET PO PRN (20:00)
[2017-11-12] MEDS ORDERED: ONDANSETRON 2MG/ML, 2ML IVPush PRN (20:00)
[2017-11-12] MEDS ORDERED: ASPIRIN 81 MG TABLET EC PO ONE (20:00)
[2017-11-12 20:20] LABS: FREE T4 (FREE THYROXINE) 0.87 ng/dL (0.76-1.46); THYROID STIMULATING HORMONE 3.01 mIU/L (0.358-3.740)
[2017-11-12 20:25] LABS: HEMOGLOBIN A1C 6.9 % (4.2-6.3)
[2017-11-12] MEDS: HEPARIN 5,000 UNITS/ML, 1ML SQ SCH (20:59)
[2017-11-12] MEDS: metFORMIN 500 MG TABLET PO SCH (20:59)
[2017-11-12 21:01] VITALS: BP 178/91
[2017-11-12 22:00] VITALS: BP 158/90
[2017-11-12] MEDS: ACETAMINOPHEN 325 MG TABLET PO PRN (22:35)
[2017-11-12 23:33] VITALS: BP 183/99
[2017-11-12] MEDS: hydrALAzine 20 MG/ML, 1ML IVPush PRN (23:36)
[2017-11-13] VITALS (7 sets, daily range): BP systolic 156–182; BP diastolic 71–88
[2017-11-13] MEDS ORDERED: KETOROLAC 30 MG/1 ML IVPush ONE
[2017-11-13] MEDS: ACETAMINOPHEN 325 MG TABLET PO PRN ×4 (03:00→21:22)
[2017-11-13] MEDS: HEPARIN 5,000 UNITS/ML, 1ML SQ SCH ×3 (05:12→21:22)
[2017-11-13] MEDS: ASPIRIN 81 MG TABLET EC PO SCH (05:12)
[2017-11-13 06:11] LABS: MEAN CORPUSCULAR HEMOGLOBIN 24.2 pg (27.5-34.5); MEAN CORPUSCULAR HGB CONC 32.6 g/dL (33.2-36.2); MEAN CORPUSCULAR VOLUME 74.1 fL (81-97); PLATELET COUNT 336 x10^3/uL (130-400); RED BLOOD COUNT 3.06 x10^6/uL (4.38-5.82); RED CELL DISTRIBUTION WIDTH 18.6 % (9.4-14.8)
[2017-11-13 06:12] LABS: CHLORIDE 108 mmol/L (98-107)
[2017-11-13 06:26] LABS: ALANINE AMINOTRANSFERASE 15 U/L (12-78); ALBUMIN 3.2 g/dL (3.4-5.0); ALKALINE PHOSPHATASE 164 U/L (45-117); ANION GAP 9 mmol/L (5-15); BILIRUBIN,TOTAL 0.5 mg/dL (0.2-1.0); CALCIUM 8.4 mg/dL (8.5-10.1); CHOL/HDL RATIO 3.8; CHOLESTEROL, TOTAL 107 mg/dL (140-239); CREATININE 0.71 mg/dL (0.7-1.3); HDL CHOL % 26 % (26-37); HDL CHOLESTEROL (DIRECT) 28 mg/dL (40-60); LDL CHOLESTEROL,CALCULATED 23 mg/dL (54-169); LDL/HDL RATIO 0.8 (0.5-3.0); TOTAL PROTEIN 6.9 g/dL (6.4-8.2); TRIGLYCERIDES 280 mg/dL (50-200); VLDL CHOLESTEROL 56 mg/dL (0-25)
[2017-11-13 06:40] LABS: MD SCAN
[2017-11-13 06:41] LABS: BASOPHILS # (AUTO) 0.05 x10^3/uL (0-0.1); BASOPHILS % (AUTO) 1 % (0-1); EOSINOPHILS # (AUTO) 0.05 x10^3/uL (0-0.4); EOSINOPHILS % (AUTO) 1 % (1-7); LYMPHOCYTES # (AUTO) 1.81 x10^3/uL (1-3.4); LYMPHOCYTES % (AUTO) 22 % (22-44); MONOCYTES % (AUTO) 6 % (2-9); NEUTROPHILS # (AUTO) 5.69 x10^3/uL (1.8-6.8); NEUTROPHILS % (AUTO) 70 % (42-75)
[2017-11-13] MEDS: LISINOPRIL 20 MG TABLET PO SCH (08:52)
[2017-11-13] MEDS: metFORMIN 500 MG TABLET PO SCH ×2 (08:52→16:45)
[2017-11-13] MEDS: SENNA/DOCUSATE TABLET PO SCH ×2 (08:52→08:53)
[2017-11-13] MEDS: hydrALAzine 20 MG/ML, 1ML IVPush PRN (13:31)
[2017-11-13] MEDS: METOPROLOL TARTRATE 25 MG TABLET PO SCH (22:24)
[2017-11-13] MEDS: ATORVASTATIN 40 MG TABLET PO SCH (22:24)
[2017-11-14 02:24] VITALS: BP 152/73
[2017-11-14] MEDS: ACETAMINOPHEN 325 MG TABLET PO PRN (03:22)
[2017-11-14 05:33] LABS: BASOPHILS # (AUTO) 0.04 x10^3/uL (0-0.1); BASOPHILS % (AUTO) 1 % (0-1); EOSINOPHILS % (AUTO) 0 % (1-7); LYMPHOCYTES # (AUTO) 1.57 x10^3/uL (1-3.4); LYMPHOCYTES % (AUTO) 17 % (22-44); MD NO; MEAN CORPUSCULAR HEMOGLOBIN 23.8 pg (27.5-34.5); MEAN CORPUSCULAR HGB CONC 32.3 g/dL (33.2-36.2); MEAN CORPUSCULAR VOLUME 73.7 fL (81-97); MEAN PLATELET VOLUME 7.7 fL (7.4-10.4); MONOCYTES # (AUTO) 0.59 x10^3/uL (0.2-0.8); MONOCYTES % (AUTO) 7 % (2-9); NEUTROPHILS # (AUTO) 6.82 x10^3/uL (1.8-6.8); NEUTROPHILS % (AUTO) 76 % (42-75); PLATELET COUNT 343 x10^3/uL (130-400); RED BLOOD COUNT 2.98 x10^6/uL (4.38-5.82); RED CELL DISTRIBUTION WIDTH 18.9 % (9.4-14.8)
[2017-11-14] MEDS: ASPIRIN 81 MG TABLET EC PO SCH (05:35)
[2017-11-14] MEDS: HEPARIN 5,000 UNITS/ML, 1ML SQ SCH (05:35)
[2017-11-14 05:37] LABS: CHLORIDE 110 mmol/L (98-107)
[2017-11-14] MEDS: METOPROLOL TARTRATE 25 MG TABLET PO SCH ×2 (05:42→18:15)
[2017-11-14 05:49] LABS: ANION GAP 10 mmol/L (5-15); CALCIUM 8.5 mg/dL (8.5-10.1); CREATININE 0.74 mg/dL (0.7-1.3)
[2017-11-14 06:54] VITALS: BP 161/80
[2017-11-14] MEDS: LISINOPRIL 20 MG TABLET PO SCH (08:15)
[2017-11-14] MEDS: TAMSULOSIN 0.4 MG CAP.ER.24H PO SCH (08:15)
[2017-11-14] MEDS: SENNA/DOCUSATE TABLET PO SCH (08:15)
[2017-11-14] MEDS: metFORMIN 500 MG TABLET PO SCH (08:15)
[2017-11-14] MEDS ORDERED: PANTOPRAZOLE 40 MG IV IVPush SCH (11:30)
[2017-11-14 12:01] LABS: INTERNATIONAL NORMALIZED RATIO 0.92 (0.93-1.1); PROTHROMBIN TIME 9.6 Seconds (9.6-11.5)
[2017-11-14 12:35] VITALS: BP 140/67
[2017-11-14] MEDS: INSULIN ASPART 100 UNITS/ML, PEN SQ-INSULIN SCH ×2 (16:00→21:00)
[2017-11-14 19:15] VITALS: BP 147/76
[2017-11-14] MEDS ORDERED: PANTOPRAZOLE 20MG TABLET PO SCH (21:00)
[2017-11-14] MEDS: ATORVASTATIN 40 MG TABLET PO SCH (21:35)
[2017-11-15] VITALS (7 sets, daily range): BP systolic 138–160; BP diastolic 73–82
[2017-11-15 05:12] LABS: MEAN CORPUSCULAR HEMOGLOBIN 23.8 pg (27.5-34.5); MEAN CORPUSCULAR HGB CONC 31.9 g/dL (33.2-36.2); MEAN CORPUSCULAR VOLUME 74.6 fL (81-97); MEAN PLATELET VOLUME 7.7 fL (7.4-10.4); PLATELET COUNT 355 x10^3/uL (130-400); RED BLOOD COUNT 2.83 x10^6/uL (4.38-5.82); RED CELL DISTRIBUTION WIDTH 18.5 % (9.4-14.8)
[2017-11-15 05:16] LABS: ANION GAP 8 mmol/L (5-15); CALCIUM 8.5 mg/dL (8.5-10.1); CHLORIDE 108 mmol/L (98-107)
[2017-11-15 05:18] LABS: CREATININE 0.76 mg/dL (0.7-1.3)
[2017-11-15 05:29] LABS: BASOPHILS # (AUTO) 0.04 x10^3/uL (0-0.1); BASOPHILS % (AUTO) 1 % (0-1); EOSINOPHILS % (AUTO) 1 % (1-7); LYMPHOCYTES # (AUTO) 1.93 x10^3/uL (1-3.4); LYMPHOCYTES % (AUTO) 26 % (22-44); MD NO; MONOCYTES # (AUTO) 0.63 x10^3/uL (0.2-0.8); MONOCYTES % (AUTO) 8 % (2-9); NEUTROPHILS # (AUTO) 4.83 x10^3/uL (1.8-6.8); NEUTROPHILS % (AUTO) 64 % (42-75)
[2017-11-15] MEDS: ASPIRIN 81 MG TABLET EC PO SCH (06:00)
[2017-11-15] MEDS: METOPROLOL TARTRATE 25 MG TABLET PO SCH ×2 (06:25→17:06)
[2017-11-15] MEDS: INSULIN ASPART 100 UNITS/ML, PEN SQ-INSULIN SCH ×3 (07:00→16:00)
[2017-11-15] MEDS ORDERED: PANTOPRAZOLE 40 MG IV ONE (08:22)
[2017-11-15] MEDS: PANTOPRAZOLE 40 MG IV IVPush SCH ×2 (08:26→21:47)
[2017-11-15] MEDS: LISINOPRIL 20 MG TABLET PO SCH (08:26)
[2017-11-15] MEDS: TAMSULOSIN 0.4 MG CAP.ER.24H PO SCH (08:27)
[2017-11-15] MEDS: SENNA/DOCUSATE TABLET PO SCH (08:27)
[2017-11-15] MEDS ORDERED: PANTOPRAZOLE 20MG TABLET PO SCH (09:00)
[2017-11-15] MEDS: ACETAMINOPHEN 325 MG TABLET PO PRN ×2 (11:35→21:46)
[2017-11-15] MEDS ORDERED: FENTANYL PF 100 MCG/2ML ONE (12:32)
[2017-11-15] MEDS ORDERED: MIDAZOLAM 1 MG/ML, 5ML ONE (12:32)
[2017-11-15] MEDS: SUCRALFATE 1 GM/10 ML UDC PO SCH ×2 (17:05→21:46)
[2017-11-15] MEDS: ATORVASTATIN 40 MG TABLET PO SCH (21:46)
[2017-11-15] MEDS: INSULIN LISPRO 100 UNITS/ML, PEN SQ-INSULIN SCH (21:47)
[2017-11-16 01:15] VITALS: BP 152/73
[2017-11-16] MEDS: ACETAMINOPHEN 325 MG TABLET PO PRN (03:41)
[2017-11-16 05:43] LABS: BASOPHILS # (AUTO) 0.03 x10^3/uL (0-0.1); BASOPHILS % (AUTO) 0 % (0-1); EOSINOPHILS # (AUTO) 0.15 x10^3/uL (0-0.4); EOSINOPHILS % (AUTO) 2 % (1-7); LYMPHOCYTES # (AUTO) 1.83 x10^3/uL (1-3.4); LYMPHOCYTES % (AUTO) 23 % (22-44); MD NO; MEAN CORPUSCULAR HEMOGLOBIN 25.3 pg (27.5-34.5); MEAN CORPUSCULAR HGB CONC 32.9 g/dL (33.2-36.2); MEAN PLATELET VOLUME 8.2 fL (7.4-10.4); MONOCYTES # (AUTO) 0.62 x10^3/uL (0.2-0.8); MONOCYTES % (AUTO) 8 % (2-9); NEUTROPHILS # (AUTO) 5.41 x10^3/uL (1.8-6.8); NEUTROPHILS % (AUTO) 67 % (42-75); PLATELET COUNT 327 x10^3/uL (130-400); RED BLOOD COUNT 3.22 x10^6/uL (4.38-5.82); RED CELL DISTRIBUTION WIDTH 19.7 % (9.4-14.8)
[2017-11-16 05:46] LABS: ANION GAP 7 mmol/L (5-15); CALCIUM 8.5 mg/dL (8.5-10.1); CHLORIDE 108 mmol/L (98-107); CREATININE 0.76 mg/dL (0.7-1.3)
[2017-11-16 06:12] VITALS: BP 155/72
[2017-11-16] MEDS: SUCRALFATE 1 GM/10 ML UDC PO SCH ×4 (06:14→21:06)
[2017-11-16] MEDS: ASPIRIN 81 MG TABLET EC PO SCH (06:14)
[2017-11-16] MEDS: METOPROLOL TARTRATE 25 MG TABLET PO SCH ×2 (06:14→16:55)
[2017-11-16] MEDS ORDERED: INSULIN LISPRO 100 UNITS/ML, PEN SQ-INSULIN SCH (07:00)
[2017-11-16] MEDS: INSULIN LISPRO 100 UNITS/ML, PEN SQ-INSULIN SCH ×4 (07:00→21:07)
[2017-11-16 07:04] VITALS: BP 145/76
[2017-11-16] MEDS: SENNA/DOCUSATE TABLET PO SCH (09:00)
[2017-11-16] MEDS: PANTOPRAZOLE 40 MG IV IVPush SCH (09:27)
[2017-11-16] MEDS: LISINOPRIL 20 MG TABLET PO SCH (09:28)
[2017-11-16] MEDS: TAMSULOSIN 0.4 MG CAP.ER.24H PO SCH (09:28)
[2017-11-16] MEDS ORDERED: ASPI-621 PO (11:05)
[2017-11-16] MEDS ORDERED: ACET325T14 PO (11:05)
[2017-11-16] MEDS ORDERED: INSU100I11 SQ-INSULIN (11:05)
[2017-11-16] MEDS ORDERED: TAMS-11 PO (11:05)
[2017-11-16] MEDS ORDERED: SUCR1ORA5 PO (11:05)
[2017-11-16] MEDS ORDERED: METO25TA35 PO (11:05)
[2017-11-16] MEDS ORDERED: PANT40TA5 PO (11:05)
[2017-11-16] MEDS ORDERED: ATOR40TA78 PO (11:05)
[2017-11-16] MEDS ORDERED: PANTOPROZOLE 40MG TABLET PO SCH (11:30)
[2017-11-16 13:23] VITALS: BP 142/72
[2017-11-16 19:28] VITALS: BP 147/68
[2017-11-16] MEDS: ATORVASTATIN 40 MG TABLET PO SCH (21:06)
[2017-11-16] MEDS: PANTOPROZOLE 40MG TABLET PO SCH (21:06)
[2017-11-17] MEDS: ACETAMINOPHEN 325 MG TABLET PO PRN ×2 (01:17→13:46)
[2017-11-17 02:00] VITALS: BP 170/88
[2017-11-17] MEDS: METOPROLOL TARTRATE 25 MG TABLET PO SCH (05:56)
[2017-11-17] MEDS ORDERED: ASPIRIN 81 MG TABLET EC PO SCH (06:00)
[2017-11-17] MEDS: INSULIN LISPRO 100 UNITS/ML, PEN SQ-INSULIN SCH ×2 (07:00→12:22)
[2017-11-17 08:09] VITALS: BP 168/88
[2017-11-17] MEDS: SUCRALFATE 1 GM/10 ML UDC PO SCH ×2 (08:19→12:21)
[2017-11-17] MEDS: PANTOPROZOLE 40MG TABLET PO SCH (08:19)
[2017-11-17] MEDS: TAMSULOSIN 0.4 MG CAP.ER.24H PO SCH (08:20)
[2017-11-17] MEDS: SENNA/DOCUSATE TABLET PO SCH (08:20)
[2017-11-17] MEDS: LISINOPRIL 20 MG TABLET PO SCH (08:20)
[2017-11-17 14:49] VITALS: BP 161/84
== END 2017-11-17 15:02 | DRG 64 ==
LOC: ED 17:34 → EDIP 17:59 → 4EST 19:55
PROVIDERS: ADMIT Family Medicine; ATTEND Family Medicine
PROC: 30233N1 Transfusion of Nonautologous Red Blood Cells into Peripheral Vein, Percutaneous Approach (ICD-10-PCS; 2017-11-15)
PROC: 0DB68ZX Excision of Stomach, Via Natural or Artificial Opening Endoscopic, Diagnostic (ICD-10-PCS; principal; 2017-11-15 13:30)
DX: I63.9 Cerebral infarction, unspecified (principal); K25.4 Chronic or unspecified gastric ulcer with hemorrhage; E44.1 Mild protein-calorie malnutrition; E11.65 Type 2 diabetes mellitus with hyperglycemia; I48.91 Unspecified atrial fibrillation; K26.9 Duodenal ulcer, unspecified as acute or chronic, without hemorrhage or perforation; G81.94 Hemiplegia, unspecified affecting left nondominant side; G43.909 Migraine, unspecified, not intractable, without status migrainosus; G46.0 Middle cerebral artery syndrome; I10 Essential (primary) hypertension; D50.9 Iron deficiency anemia, unspecified; K44.9 Diaphragmatic hernia without obstruction or gangrene; Z66 Do not resuscitate; F32.9 Major depressive disorder, single episode, unspecified; R00.0 Tachycardia, unspecified; L40.50 Arthropathic psoriasis, unspecified; R33.9 Retention of urine, unspecified; I25.10 Atherosclerotic heart disease of native coronary artery without angina pectoris; Z91.19 Patient's noncompliance with other medical treatment and regimen; Z95.5 Presence of coronary angioplasty implant and graft; Z91.14 Patient's other noncompliance with medication regimen; Z82.49 Family history of ischemic heart disease and other diseases of the circulatory system; Z82.3 Family history of stroke; Z80.0 Family history of malignant neoplasm of digestive organs; Z59.0 Homelessness; I25.2 Old myocardial infarction; Z90.49 Acquired absence of other specified parts of digestive tract; Z88.8 Allergy status to other drugs, medicaments and biological substances; Z68.25 Body mass index [BMI] 25.0-25.9, adult; R47.81 Slurred speech
CPT/HCPCS: 36415; 70450; 70551; 71045; 80048; 80053; 80061; 80307; 82728; 82962; 83036; 83540; 83550; 84439; 84443; 84484; 85014; 85018; 85025; 85610; 86850; 86900; 86923; 88305; 93005; 93308; 93321; 93325; 93880; 96374; 99152; 99153; J1644; J1815; J1885; J2250; J3010; 92523-GN; C9113; J0360; P9016

== ENCOUNTER 2018-04-13 13:25 | Inpatient (IN) | payer MEDICARE ==
[~2018-04-13] VITALS: Ht 167.6 cm; Wt 72.9 kg
[~2018-04-13 13:25] MED LIST changes: +ASPI-621 PO; +FERR324T5 PO; +INSU100I11 SQ-INSULIN; +METF500T5 PO; +PANT40TA5 PO
[2018-04-13] MEDS ORDERED: SODIUM CHLORIDE FLUSH 10ML SYR IVF ONE (14:00)
[2018-04-13] MEDS ORDERED: SODIUM CHLORIDE 0.9% 1,000ML IVBOLUS ONE (14:00)
[2018-04-13 14:21] LABS: ALANINE AMINOTRANSFERASE 23 U/L (12-78); ALBUMIN 4.4 g/dL (3.4-5.0); ANION GAP 12 mmol/L (5-15); CALCIUM 8.9 mg/dL (8.5-10.1); CHLORIDE 106 mmol/L (98-107)
[2018-04-13 14:25] LABS: ALKALINE PHOSPHATASE 118 U/L (45-117); BILIRUBIN,TOTAL 0.3 mg/dL (0.2-1.0); CREATININE 1.35 mg/dL (0.7-1.3); TOTAL PROTEIN 8.4 g/dL (6.4-8.2); TROPONIN I < 0.015 ng/mL (0.000-0.045)
[2018-04-13 14:34] LABS: MEAN CORPUSCULAR HEMOGLOBIN 19.5 pg (27.5-34.5); MEAN PLATELET VOLUME 7.8 fL (7.4-10.4); PLATELET COUNT 461 x10^3/uL (130-400); RED BLOOD COUNT 4.84 x10^6/uL (4.38-5.82); RED CELL DISTRIBUTION WIDTH 20.1 % (9.4-14.8)
[2018-04-13 15:05] LABS: BASOPHILS # (AUTO) 0.02 x10^3/uL (0-0.1); BASOPHILS % (AUTO) 0 % (0-1); EOSINOPHILS # (AUTO) 0.02 x10^3/uL (0-0.4); EOSINOPHILS % (AUTO) 0 % (1-7); LYMPHOCYTES # (AUTO) 0.98 x10^3/uL (1-3.4); LYMPHOCYTES % (AUTO) 9 % (22-44); MD SCAN; MONOCYTES # (AUTO) 0.51 x10^3/uL (0.2-0.8); MONOCYTES % (AUTO) 5 % (2-9); NEUTROPHILS # (AUTO) 9.81 x10^3/uL (1.8-6.8); NEUTROPHILS % (AUTO) 87 % (42-75)
[2018-04-13 15:35] LABS: CULTURE INDICATED? YES; MICROSCOPIC INDICATED
[2018-04-13] MEDS ORDERED: CEFTRIAXONE PMX 1GM/50ML 50 ML ONE (16:25)
[2018-04-13] MEDS ORDERED: CEFTRIAXONE PMX 1GM/50ML 50 ML IV ONE (16:30)
[2018-04-13] MEDS ORDERED: NITROGLYCERIN/D5W PMX 250 ML ONE (16:51)
[2018-04-13] MEDS ORDERED: POLYETHYLENE GLYCOL 17 GM PACKET PO PRN (17:00)
[2018-04-13 17:19] VITALS: BP 200/118
[2018-04-13] MEDS: CARVEDILOL 3.125 MG TABLET PO SCH (18:13)
[2018-04-13] MEDS: FERROUS SULFATE 325 MG TABLET PO SCH (18:13)
[2018-04-13] MEDS: metFORMIN 500 MG TABLET PO SCH (18:13)
[2018-04-13 19:22] VITALS: BP 173/98
[2018-04-13] MEDS: INSULIN LISPRO 100 UNITS/ML, PEN SQ-INSULIN SCH (20:06)
[2018-04-13] MEDS: ATORVASTATIN 40 MG TABLET PO SCH (20:10)
[2018-04-13] MEDS: HEPARIN 5,000 UNITS/ML, 1ML SQ SCH (20:10)
[2018-04-13] MEDS: ACETAMINOPHEN 325 MG TABLET PO PRN (20:10)
[2018-04-13] MEDS: SODIUM CHLORIDE 0.9% 1,000 ML IV SCH (20:11)
[2018-04-13 20:52] VITALS: BP 176/111
[2018-04-13] MEDS: hydrALAzine 20 MG/ML, 1ML IV PRN (21:01)
[2018-04-13 21:22] VITALS: BP 178/89
[2018-04-14 01:59] VITALS: BP 188/106
[2018-04-14] MEDS: hydrALAzine 20 MG/ML, 1ML IV PRN ×2 (02:04→13:13)
[2018-04-14 02:24] VITALS: BP 152/84
[2018-04-14] MEDS: ACETAMINOPHEN 325 MG TABLET PO PRN (04:26)
[2018-04-14] MEDS: HEPARIN 5,000 UNITS/ML, 1ML SQ SCH ×3 (04:27→20:10)
[2018-04-14 04:59] LABS: MEAN CORPUSCULAR HEMOGLOBIN 18.9 pg (27.5-34.5); MEAN CORPUSCULAR HGB CONC 30.2 g/dL (33.2-36.2); MEAN CORPUSCULAR VOLUME 62.6 fL (81-97); MEAN PLATELET VOLUME 7.7 fL (7.4-10.4); PLATELET COUNT 397 x10^3/uL (130-400); RED CELL DISTRIBUTION WIDTH 20.1 % (9.4-14.8)
[2018-04-14 05:00] LABS: ANION GAP 9 mmol/L (5-15); CALCIUM 8.4 mg/dL (8.5-10.1); CHLORIDE 107 mmol/L (98-107); CREATININE 0.81 mg/dL (0.7-1.3)
[2018-04-14 05:15] LABS: HEMOGLOBIN A1C 7.4 % (4.2-6.3)
[2018-04-14 05:48] LABS: BASOPHILS # (AUTO) 0.04 x10^3/uL (0-0.1); BASOPHILS % (AUTO) 1 % (0-1); EOSINOPHILS # (AUTO) 0.08 x10^3/uL (0-0.4); EOSINOPHILS % (AUTO) 1 % (1-7); LYMPHOCYTES # (AUTO) 1.89 x10^3/uL (1-3.4); LYMPHOCYTES % (AUTO) 22 % (22-44); MD SCAN; MONOCYTES # (AUTO) 0.59 x10^3/uL (0.2-0.8); MONOCYTES % (AUTO) 7 % (2-9); NEUTROPHILS # (AUTO) 5.99 x10^3/uL (1.8-6.8); NEUTROPHILS % (AUTO) 70 % (42-75)
[2018-04-14] MEDS: CARVEDILOL 3.125 MG TABLET PO SCH (06:11)
[2018-04-14] MEDS: ASPIRIN 81 MG TABLET EC PO SCH (06:11)
[2018-04-14] MEDS: INSULIN LISPRO 100 UNITS/ML, PEN SQ-INSULIN SCH ×4 (07:00→20:11)
[2018-04-14] MEDS ORDERED: POTASSIUM CHLORIDE 20 MEQ TAB.ER.PRT PO ONE (07:30)
[2018-04-14 07:42] VITALS: BP 151/95
[2018-04-14] MEDS: TAMSULOSIN 0.4 MG CAP.ER.24H PO SCH (08:36)
[2018-04-14] MEDS: metFORMIN 500 MG TABLET PO SCH ×2 (08:36→17:10)
[2018-04-14] MEDS: FERROUS SULFATE 325 MG TABLET PO SCH ×2 (08:36→17:09)
[2018-04-14] MEDS: ACETAMINOPHEN 325 MG TABLET PO SCH ×3 (11:24→22:51)
[2018-04-14] MEDS: SODIUM CHLORIDE 0.9% 1,000 ML IV SCH (11:28)
[2018-04-14 13:05] VITALS: BP 191/109
[2018-04-14 14:11] VITALS: BP 149/86
[2018-04-14] MEDS ORDERED: KETOROLAC 30 MG/1 ML IVPush ONE (16:00)
[2018-04-14] MEDS ORDERED: CEFTRIAXONE PMX 1GM/50ML 50 ML IV SCH (17:00)
[2018-04-14] MEDS ORDERED: MAGNESIUM CITRATE 300ML ORAL SOL PO ONE (17:00)
[2018-04-14] MEDS: CARVEDILOL 12.5 MG TABLET PO SCH (17:10)
[2018-04-14 20:00] VITALS: BP 154/90
[2018-04-14] MEDS: ATORVASTATIN 40 MG TABLET PO SCH (20:10)
[2018-04-15] VITALS (7 sets, daily range): BP systolic 116–188; BP diastolic 65–102
[2018-04-15] MEDS: hydrALAzine 20 MG/ML, 1ML IV PRN (03:11)
[2018-04-15] MEDS: ACETAMINOPHEN 325 MG TABLET PO SCH ×4 (04:49→22:13)
[2018-04-15] MEDS: HEPARIN 5,000 UNITS/ML, 1ML SQ SCH ×3 (04:49→22:14)
[2018-04-15] MEDS: ASPIRIN 81 MG TABLET EC PO SCH (05:24)
[2018-04-15] MEDS: SODIUM CHLORIDE 0.9% 1,000 ML IV SCH ×2 (05:25→22:15)
[2018-04-15] MEDS: CARVEDILOL 12.5 MG TABLET PO SCH ×2 (05:25→16:30)
[2018-04-15 05:54] LABS: MEAN CORPUSCULAR HEMOGLOBIN 19.3 pg (27.5-34.5); MEAN CORPUSCULAR HGB CONC 30.7 g/dL (33.2-36.2); MEAN CORPUSCULAR VOLUME 62.8 fL (81-97); MEAN PLATELET VOLUME 7.9 fL (7.4-10.4); PLATELET COUNT 398 x10^3/uL (130-400); RED BLOOD COUNT 4.55 x10^6/uL (4.38-5.82); RED CELL DISTRIBUTION WIDTH 20.3 % (9.4-14.8)
[2018-04-15 05:56] LABS: CHLORIDE 105 mmol/L (98-107)
[2018-04-15 06:43] LABS: % IRON SATURATION 5 % (20-55); ANION GAP 11 mmol/L (5-15); CALCIUM 8.4 mg/dL (8.5-10.1); CREATININE 0.73 mg/dL (0.7-1.3); FOLATE LEVEL 10.2 ng/mL (3.1-17.5); IRON LEVEL 19 mcg/dL (65-175); TOTAL IRON BINDING CAPACITY 412 mcg/dL (250-450)
[2018-04-15] MEDS: INSULIN LISPRO 100 UNITS/ML, PEN SQ-INSULIN SCH ×4 (07:00→21:00)
[2018-04-15 07:06] LABS: BASOPHILS # (AUTO) 0.05 x10^3/uL (0-0.1); BASOPHILS % (AUTO) 1 % (0-1); EOSINOPHILS # (AUTO) 0.03 x10^3/uL (0-0.4); EOSINOPHILS % (AUTO) 0 % (1-7); LYMPHOCYTES # (AUTO) 1.77 x10^3/uL (1-3.4); LYMPHOCYTES % (AUTO) 21 % (22-44); MD SCAN; MONOCYTES # (AUTO) 0.61 x10^3/uL (0.2-0.8); MONOCYTES % (AUTO) 7 % (2-9); NEUTROPHILS # (AUTO) 5.85 x10^3/uL (1.8-6.8); NEUTROPHILS % (AUTO) 71 % (42-75)
[2018-04-15] MEDS ORDERED: IRON DEXTRAN IV PER PHARMACY IV PRN (07:30)
[2018-04-15] MEDS: ONDANSETRON 2MG/ML, 2ML IVPush PRN (07:41)
[2018-04-15] MEDS: metFORMIN 500 MG TABLET PO SCH ×2 (08:00→16:08)
[2018-04-15] MEDS: TAMSULOSIN 0.4 MG CAP.ER.24H PO SCH (09:00)
[2018-04-15] MEDS: ISOSORBIDE DINITRATE 10 MG TABLET PO SCH ×3 (09:43→22:14)
[2018-04-15] MEDS: IRON SUCROSE COMPLEX 100MG/5ML IV SCH (09:43)
[2018-04-15] MEDS ORDERED: KETOROLAC 30 MG/1 ML IVPush ONE (10:30)
[2018-04-15] MEDS ORDERED: PROCHLORPERAZINE 5 MG/ML, 2ML IV PRN (10:30)
[2018-04-15] MEDS: PROCHLORPERAZINE 5 MG/ML, 2ML IV PRN ×2 (11:04→16:26)
[2018-04-15] MEDS ORDERED: KETOROLAC 30 MG/1 ML IVPush PRN (11:30)
[2018-04-15] MEDS: NITROFURANTOIN (MACROBID) 100 MG CAPSULE PO SCH (22:13)
[2018-04-15] MEDS: ATORVASTATIN 40 MG TABLET PO SCH (22:14)
[2018-04-16 03:36] VITALS: BP 151/91
[2018-04-16] MEDS: CARVEDILOL 12.5 MG TABLET PO SCH ×2 (05:49→17:34)
[2018-04-16] MEDS: HEPARIN 5,000 UNITS/ML, 1ML SQ SCH ×2 (05:49→14:05)
[2018-04-16] MEDS: ASPIRIN 81 MG TABLET EC PO SCH (05:49)
[2018-04-16] MEDS: ACETAMINOPHEN 325 MG TABLET PO SCH ×3 (05:50→16:55)
[2018-04-16] MEDS: INSULIN LISPRO 100 UNITS/ML, PEN SQ-INSULIN SCH ×3 (07:00→16:00)
[2018-04-16 08:00] VITALS: BP 128/58
[2018-04-16] MEDS ORDERED: FERROUS SULFATE 325 MG TABLET PO SCH (09:00)
[2018-04-16] MEDS: IRON SUCROSE COMPLEX 100MG/5ML IV SCH (09:31)
[2018-04-16] MEDS: TAMSULOSIN 0.4 MG CAP.ER.24H PO SCH (09:31)
[2018-04-16] MEDS: NITROFURANTOIN (MACROBID) 100 MG CAPSULE PO SCH (09:31)
[2018-04-16] MEDS: metFORMIN 500 MG TABLET PO SCH ×2 (09:31→16:54)
[2018-04-16] MEDS: ISOSORBIDE DINITRATE 10 MG TABLET PO SCH ×2 (09:32→16:54)
[2018-04-16 13:18] VITALS: BP 137/61
[2018-04-16] MEDS: SODIUM CHLORIDE 0.9% 1,000 ML IV SCH (14:10)
[2018-04-16] MEDS ORDERED: HYDR-3342 PO (18:22)
[2018-04-16] MEDS ORDERED: NITR100C6 PO (18:22)
[2018-04-16] MEDS ORDERED: ISOS10TA2 PO (18:22)
[2018-04-16] MEDS ORDERED: CARV12.543 PO (18:22)
[2018-04-16] MEDS: ONDANSETRON 2MG/ML, 2ML IVPush PRN (18:43)
== END 2018-04-16 20:30 | disposition home or self-care (01) | DRG 871 ==
LOC: ED 13:56 → EDIP 16:31 → 3NE 17:10
PROVIDERS: ADMIT Hospitalist; ATTEND Hospitalist
PROC: 0T9B70Z Drainage of Bladder with Drainage Device, Via Natural or Artificial Opening (ICD-10-PCS; principal; 2018-04-13)
DX: A41.9 Sepsis, unspecified organism (principal); N17.0 Acute kidney failure with tubular necrosis; N39.0 Urinary tract infection, site not specified; E87.6 Hypokalemia; I10 Essential (primary) hypertension; E11.65 Type 2 diabetes mellitus with hyperglycemia; D50.9 Iron deficiency anemia, unspecified; E86.0 Dehydration; G47.00 Insomnia, unspecified; I25.10 Atherosclerotic heart disease of native coronary artery without angina pectoris; I48.91 Unspecified atrial fibrillation; L40.50 Arthropathic psoriasis, unspecified; W01.0XXA Fall on same level from slipping, tripping and stumbling without subsequent striking against object, initial encounter; S09.90XA Unspecified injury of head, initial encounter; S46.912A Strain of unspecified muscle, fascia and tendon at shoulder and upper arm level, left arm, initial encounter; G43.909 Migraine, unspecified, not intractable, without status migrainosus; N40.1 Benign prostatic hyperplasia with lower urinary tract symptoms; I25.2 Old myocardial infarction; Z86.73 Personal history of transient ischemic attack (TIA), and cerebral infarction without residual deficits; Z91.19 Patient's noncompliance with other medical treatment and regimen; Z95.5 Presence of coronary angioplasty implant and graft; Z87.11 Personal history of peptic ulcer disease; Y93.89 Activity, other specified; Y92.002 Bathroom of unspecified non-institutional (private) residence as the place of occurrence of the external cause; Y99.8 Other external cause status; Z90.49 Acquired absence of other specified parts of digestive tract; Z88.6 Allergy status to analgesic agent
CPT/HCPCS: 36415; 51702; 70360; 70450; 80048; 80053; 81001; 82274; 82607; 82746; 82962; 83036; 83540; 83550; 83605; 83735; 84484; 85025; 87077; 87086; 87186; 93005; 96361; 96365; J0696; J1644; J1756; J1885; J2405; J0360; J0780; J7030

== ENCOUNTER 2018-05-13 14:23 | Emergency (ER) | payer MEDICARE ==
[~2018-05-13] VITALS: Ht 167.6 cm; Wt 72.0 kg
[~2018-05-13 14:23] MED LIST changes: +HYDR-3342 PO; +ISOS10TA2 PO; +NITR100C6 PO
[2018-05-13] MEDS ORDERED: SODIUM CHLORIDE FLUSH 10ML SYR IVF ONE (15:00)
[2018-05-13] MEDS ORDERED: METOPROLOL 1 MG/ML, 5ML IVPush PRN (15:00)
[2018-05-13] MEDS ORDERED: METOPROLOL 1 MG/ML, 5ML ONE (15:13)
[2018-05-13 15:23] LABS: ALBUMIN 3.7 g/dL (3.4-5.0); ANION GAP 7 mmol/L (5-15); CALCIUM 9.3 mg/dL (8.5-10.1); CHLORIDE 108 mmol/L (98-107); CREATININE 0.94 mg/dL (0.7-1.3)
[2018-05-13 15:25] LABS: MEAN CORPUSCULAR VOLUME 68.9 fL (81-97); MEAN PLATELET VOLUME 8.2 fL (7.4-10.4); PLATELET COUNT 323 x10^3/uL (130-400); RED BLOOD COUNT 5.65 x10^6/uL (4.38-5.82); RED CELL DISTRIBUTION WIDTH 27.3 % (9.4-14.8)
[2018-05-13 15:39] LABS: ANISOCYTOSIS 2+; BASOPHILS # (AUTO) 0.01 x10^3/uL (0-0.1); BASOPHILS % (AUTO) 0 % (0-1); EOSINOPHILS # (AUTO) 0.08 x10^3/uL (0-0.4); EOSINOPHILS % (AUTO) 1 % (1-7); LYMPHOCYTES # (AUTO) 1.39 x10^3/uL (1-3.4); LYMPHOCYTES % (AUTO) 16 % (22-44); MD MORPH REVIEW ONLY; MONOCYTES # (AUTO) 0.45 x10^3/uL (0.2-0.8); MONOCYTES % (AUTO) 5 % (2-9); NEUTROPHILS % (AUTO) 78 % (42-75)
[2018-05-13 15:40] LABS: HYPOCHROMIA 1+; MICROCYTOSIS 1+
[2018-05-13 15:41] LABS: <PLATELET ESTIMATE> ADEQUATE; <PLT MORPHOLOGY> NORMAL PLT MORPH
[2018-05-13] MEDS ORDERED: hydrALAzine 20 MG/ML, 1ML ONE (15:56)
[2018-05-13] MEDS ORDERED: hydrALAzine 20 MG/ML, 1ML IV ONE (16:00)
[2018-05-13 16:20] VITALS: BP 169/91
== END 2018-05-13 18:29 | disposition home or self-care (01) ==
LOC: ED 17:55
DX: I10 Essential (primary) hypertension (principal); Z72.9 Problem related to lifestyle, unspecified; I25.10 Atherosclerotic heart disease of native coronary artery without angina pectoris; I48.91 Unspecified atrial fibrillation; E11.65 Type 2 diabetes mellitus with hyperglycemia; I25.2 Old myocardial infarction; Z86.73 Personal history of transient ischemic attack (TIA), and cerebral infarction without residual deficits
CPT/HCPCS: 36415; 80048; 82040; 85025; 96374; 96375; 99285; J0360

== ENCOUNTER 2018-05-14 08:35 | Emergency (ER) | payer MEDICARE ==
[~2018-05-14] VITALS: Ht 170.2 cm; Wt 82.0 kg
[2018-05-14] MEDS ORDERED: OXYcodone/APAP 5/325MG TABLET ONE (08:59)
[2018-05-14] MEDS ORDERED: OXYcodone/APAP 5/325MG TABLET PO ONE (09:00)
[2018-05-14 09:20] LABS: MEAN CORPUSCULAR HEMOGLOBIN 21.7 pg (27.5-34.5); MEAN CORPUSCULAR HGB CONC 31.8 g/dL (33.2-36.2); MEAN CORPUSCULAR VOLUME 68.4 fL (81-97); MEAN PLATELET VOLUME 8.2 fL (7.4-10.4); PLATELET COUNT 330 x10^3/uL (130-400); RED BLOOD COUNT 5.45 x10^6/uL (4.38-5.82); RED CELL DISTRIBUTION WIDTH 27.6 % (9.4-14.8)
[2018-05-14 09:21] LABS: ALBUMIN 3.9 g/dL (3.4-5.0); ANION GAP 10 mmol/L (5-15); CALCIUM 9.8 mg/dL (8.5-10.1); CHLORIDE 105 mmol/L (98-107)
[2018-05-14 10:02] LABS: BASOPHILS # (AUTO) 0.02 x10^3/uL (0-0.1); BASOPHILS % (AUTO) 0 % (0-1); EOSINOPHILS # (AUTO) 0.01 x10^3/uL (0-0.4); EOSINOPHILS % (AUTO) 0 % (1-7); LYMPHOCYTES # (AUTO) 1.22 x10^3/uL (1-3.4); LYMPHOCYTES % (AUTO) 13 % (22-44); MD MORPH REVIEW ONLY; MONOCYTES # (AUTO) 0.56 x10^3/uL (0.2-0.8); MONOCYTES % (AUTO) 6 % (2-9); NEUTROPHILS # (AUTO) 7.31 x10^3/uL (1.8-6.8); NEUTROPHILS % (AUTO) 80 % (42-75)
[2018-05-14 10:03] LABS: <PLATELET ESTIMATE> ADEQUATE; <PLT MORPHOLOGY> NORMAL PLT MORPH; ANISOCYTOSIS 2+; HYPOCHROMIA 1+; MICROCYTOSIS 1+; OVALOCYTES 1+; POLYCHROMASIA 1+
[2018-05-14] MEDS ORDERED: LISINOPRIL 20 MG TABLET PO ONE (11:00)
[2018-05-14] MEDS ORDERED: LISINOPRIL 20 MG TABLET ONE (11:48)
[2018-05-14 11:54] VITALS: BP 174/91
[2018-05-17] MEDS ORDERED: AMLO10TA2 PO (09:42)
[2018-05-17] MEDS ORDERED: LISI-420 PO (09:44)
[2018-05-17] MEDS ORDERED: CYAN1TAB29 PO (09:47)
[2018-05-17] MEDS ORDERED: MODA100T22 PO (09:47)
[2018-05-17] MEDS ORDERED: MIRT15TA3 PO (09:47)
== END 2018-05-14 11:58 | disposition home or self-care (01) ==
LOC: ED 09:36
DX: I10 Essential (primary) hypertension (principal)
CPT/HCPCS: 36415; 70450; 80048; 82040; 85025; 99285

== ENCOUNTER 2018-05-16 13:14 | Emergency (ER) | payer MEDICARE ==
[~2018-05-16] VITALS: Ht 170.2 cm; Wt 67.1 kg
[2018-05-16 14:19] LABS: BASOPHILS # (AUTO) 0.01 x10^3/uL (0-0.1); BASOPHILS % (AUTO) 0 % (0-1); EOSINOPHILS # (AUTO) 0.07 x10^3/uL (0-0.4); EOSINOPHILS % (AUTO) 1 % (1-7); LYMPHOCYTES # (AUTO) 1.59 x10^3/uL (1-3.4); LYMPHOCYTES % (AUTO) 23 % (22-44); MD MORPH REVIEW ONLY; MEAN CORPUSCULAR HEMOGLOBIN 22.2 pg (27.5-34.5); MEAN CORPUSCULAR HGB CONC 31.7 g/dL (33.2-36.2); MEAN CORPUSCULAR VOLUME 70.1 fL (81-97); MEAN PLATELET VOLUME 8.4 fL (7.4-10.4); MONOCYTES # (AUTO) 0.45 x10^3/uL (0.2-0.8); MONOCYTES % (AUTO) 6 % (2-9); NEUTROPHILS # (AUTO) 4.95 x10^3/uL (1.8-6.8); NEUTROPHILS % (AUTO) 70 % (42-75); PLATELET COUNT 383 x10^3/uL (130-400); RED BLOOD COUNT 5.34 x10^6/uL (4.38-5.82); RED CELL DISTRIBUTION WIDTH 27.8 % (9.4-14.8)
[2018-05-16 14:24] LABS: ALBUMIN 3.8 g/dL (3.4-5.0); ANION GAP 8 mmol/L (5-15); CALCIUM 9.2 mg/dL (8.5-10.1); CHLORIDE 108 mmol/L (98-107); CREATININE 0.88 mg/dL (0.7-1.3); SALICYLATE LEVEL 2.1 mg/dL (2.8-20.0)
[2018-05-16 14:25] LABS: ACETAMINOPHEN < 2 mcg/mL (10-30)
[2018-05-16 14:45] LABS: CULTURE INDICATED? YES; MICROSCOPIC INDICATED
[2018-05-16 15:03] LABS: ANISOCYTOSIS 1+; HYPOCHROMIA 1+; OVALOCYTES 1+
[2018-05-16 15:03] LABS: AMPHETAMINE SCREEN, URINE Negative (Negative); BARBITURATE SCREEN, URINE Negative (Negative); BENZODIAZEPINE SCREEN, URINE Negative (Negative); CANNABINOID SCREEN, URINE Negative (Negative); COCAINE SCREEN, URINE Negative (Negative); METHADONE SCREEN, URINE Negative (Negative); OPIATE SCREEN, URINE Negative (Negative)
[2018-05-16 15:04] LABS: POLYCHROMASIA 1+
[2018-05-16 15:05] LABS: <PLATELET ESTIMATE> ADEQUATE; <PLT MORPHOLOGY> NORMAL PLT MORPH
[2018-05-16] MEDS ORDERED: CEFTRIAXONE 1,000 MG in SODIUM CHLORIDE 0.9% 50 ML IV SCH (18:30)
[2018-05-16] MEDS ORDERED: CEFTRIAXONE PMX 1GM/50ML 50 ML ONE (18:56)
[2018-05-16] MEDS ORDERED: CARVEDILOL 12.5 MG TABLET PO SCH (19:00)
[2018-05-16] MEDS ORDERED: ONDANSETRON 2MG/ML, 2ML IVPush PRN (19:00)
[2018-05-16] MEDS ORDERED: ACETAMINOPHEN 325 MG TABLET PO PRN ×2 (19:00)
[2018-05-16] MEDS ORDERED: FERROUS SULFATE 325 MG TABLET PO SCH (19:00)
[2018-05-16] MEDS ORDERED: ENALAPRILAT 1.25 MG/ML, 2ML IVPush PRN (19:00)
[2018-05-16] MEDS ORDERED: ENOXAPARIN 40 MG/0.4 ML SQ SCH (19:00)
[2018-05-16 19:26] LABS: THYROID STIMULATING HORMONE 1.76 mIU/L (0.358-3.740)
[2018-05-16] MEDS ORDERED: ENOXAPARIN 40 MG/0.4 ML ONE (20:46)
[2018-05-16 20:51] VITALS: BP 143/65
[2018-05-16] MEDS ORDERED: ATORVASTATIN 40 MG TABLET PO SCH (21:00)
[2018-05-16] MEDS ORDERED: HYDRALAZINE HCL 25 MG PO SCH (21:00)
[2018-05-16] MEDS ORDERED: ISOSORBIDE DINITRATE 10 MG TABLET PO SCH ×2 (21:00)
[2018-05-17] MEDS ORDERED: CARVEDILOL 12.5 MG TABLET PO SCH (06:00)
[2018-05-17] MEDS ORDERED: ASPIRIN 81 MG TABLET EC PO SCH (06:00)
[2018-05-17] MEDS ORDERED: OMEPRAZOLE 20 MG CAPSULE.DR PO SCH (07:30)
[2018-05-17] MEDS ORDERED: FLUCONAZOLE 200 MG TABLET PO SCH (09:00)
[2018-05-17] MEDS ORDERED: TAMSULOSIN 0.4 MG CAP.ER.24H PO SCH (09:00)
[2018-05-17] MEDS ORDERED: AMLO10TA2 PO (09:42)
[2018-05-17] MEDS ORDERED: LISI-420 PO (09:44)
[2018-05-17] MEDS ORDERED: MODA100T22 PO (09:47)
[2018-05-17] MEDS ORDERED: MIRT15TA3 PO (09:47)
[2018-05-17] MEDS ORDERED: CYAN1TAB29 PO (09:47)
== END 2018-05-16 21:24 ==
LOC: ED 16:04 → UNDOADMOB 16:05 → EDIP 16:05 → ED 16:10 → OBSVTOIN 18:50 → INTOOBSV 18:50 → ED 21:24
DX: I11.9 Hypertensive heart disease without heart failure (principal); R62.7 Adult failure to thrive; I25.10 Atherosclerotic heart disease of native coronary artery without angina pectoris; I25.2 Old myocardial infarction; I48.91 Unspecified atrial fibrillation; E11.65 Type 2 diabetes mellitus with hyperglycemia; M19.90 Unspecified osteoarthritis, unspecified site; Z86.73 Personal history of transient ischemic attack (TIA), and cerebral infarction without residual deficits; Z60.2 Problems related to living alone; Z90.89 Acquired absence of other organs; Z91.14 Patient's other noncompliance with medication regimen
CPT/HCPCS: 36415; 80048; 80307; 80329; 81001; 82040; 84439; 84443; 85025; 87040; 87086; 87106; 93005; 96365; 96372; 99285; J0696; J1650; G0480

== ENCOUNTER 2018-08-21 14:56 | Inpatient (IN) | payer MEDICARE ==
[~2018-08-21] VITALS: Ht 170.2 cm; Wt 71.8 kg
[~2018-08-21 14:56] MED LIST changes: +AMLO10TA6 PO; -AMLO5TAB2 PO; +AMLO5TAB7 PO; +BUPR-173 PO; +CYAN10005 PO; +CYAN1TAB29 PO; +DOCU-131 PO; +FERR-51 PO; +METF500T17 PO; -METF500T5 PO; +MIRT15TA3 PO; +MIRT15TA6 PO; +MODA100T22 PO; -SENN1TAB7 PO; +SENN1TAB8 PO
[2018-08-21] MEDS ORDERED: LABETALOL 5MG/ML, 20ML ONE (15:26)
[2018-08-21] MEDS ORDERED: LABETALOL 5MG/ML, 20ML IVPush ONE ×3 (15:30→17:00)
[2018-08-21 15:51] LABS: BASOPHILS # (AUTO) 0.03 x10^3/uL (0-0.1); BASOPHILS % (AUTO) 0 % (0-1); EOSINOPHILS # (AUTO) 0.01 x10^3/uL (0-0.4); EOSINOPHILS % (AUTO) 0 % (1-7); LYMPHOCYTES # (AUTO) 1.01 x10^3/uL (1-3.4); LYMPHOCYTES % (AUTO) 12 % (22-44); MD NO; MEAN CORPUSCULAR HEMOGLOBIN 25.5 pg (27.5-34.5); MEAN CORPUSCULAR HGB CONC 32.3 g/dL (33.2-36.2); MEAN CORPUSCULAR VOLUME 78.9 fL (81-97); MEAN PLATELET VOLUME 7.5 fL (7.4-10.4); MONOCYTES # (AUTO) 0.49 x10^3/uL (0.2-0.8); MONOCYTES % (AUTO) 6 % (2-9); NEUTROPHILS # (AUTO) 6.67 x10^3/uL (1.8-6.8); NEUTROPHILS % (AUTO) 81 % (42-75); PLATELET COUNT 325 x10^3/uL (130-400); RED BLOOD COUNT 3.69 x10^6/uL (4.38-5.82); RED CELL DISTRIBUTION WIDTH 19.9 % (9.4-14.8)
[2018-08-21 16:03] LABS: ALBUMIN 3.9 g/dL (3.4-5.0); ANION GAP 9 mmol/L (5-15); CALCIUM 9.2 mg/dL (8.5-10.1); CHLORIDE 103 mmol/L (98-107)
[2018-08-21 16:08] LABS: CREATININE 0.91 mg/dL (0.7-1.3)
[2018-08-21 16:27] LABS: TROPONIN I 0.968 ng/mL (0.000-0.045)
[2018-08-21] MEDS ORDERED: OMNIPAQUE 350 MG/ML, 100ML BOTTLE ONE (17:45)
[2018-08-21] MEDS ORDERED: hydrALAzine 20 MG/ML, 1ML IV ONE (18:00)
[2018-08-21] MEDS ORDERED: morphine SULFATE 10 MG/ML, 1ML IVPush ONE (18:00)
[2018-08-21] MEDS ORDERED: ONDANSETRON 2MG/ML, 2ML IVPush ONE (18:00)
[2018-08-21] MEDS ORDERED: hydrALAzine 20 MG/ML, 1ML ONE (18:08)
[2018-08-21] MEDS ORDERED: ONDANSETRON 2MG/ML, 2ML ONE (18:08)
[2018-08-21] MEDS ORDERED: MORPHINE SULFATE 4 MG/ML, 1ML ONE (18:09)
[2018-08-21] MEDS ORDERED: SODIUM CHLORIDE 0.9% 1,000 ML IV SCH (20:13)
[2018-08-21] MEDS ORDERED: BISACODYL 10 MG SUPP PR PRN (20:30)
[2018-08-21] MEDS ORDERED: ONDANSETRON ODT 4 MG PO PRN (20:30)
[2018-08-21] MEDS ORDERED: morphine SULFATE 10 MG/ML, 1ML IVPush PRN (20:30)
[2018-08-21] MEDS ORDERED: DOCUSATE 100 MG CAPSULE PO PRN (20:30)
[2018-08-21] MEDS ORDERED: hydrALAzine 20 MG/ML, 1ML IVPush PRN (20:30)
[2018-08-21] MEDS ORDERED: PROMETHAZINE 25 MG/ML, 1ML IM PRN (20:30)
[2018-08-21] MEDS ORDERED: POLYETHYLENE GLYCOL 17 GM PACKET PO PRN (20:30)
[2018-08-21 20:44] LABS: FREE T4 (FREE THYROXINE) 0.9 ng/dL (0.76-1.46); THYROID STIMULATING HORMONE 1.19 mIU/L (0.358-3.740)
[2018-08-21 20:45] VITALS: BP 156/81
[2018-08-21 20:50] LABS: HEMOGLOBIN A1C 6.9 % (4.2-6.3)
[2018-08-21] MEDS: FERROUS GLUCONATE 324 MG TABLET PO SCH (21:27)
[2018-08-21] MEDS: ATORVASTATIN 40 MG TABLET PO SCH (21:28)
[2018-08-21] MEDS: HEPARIN 5,000 UNITS/ML, 1ML SQ SCH (21:28)
[2018-08-21] MEDS: BUPROPION SR 100 MG TABLET PO SCH (21:35)
[2018-08-21] MEDS: ACETAMINOPHEN 325 MG TABLET PO PRN (22:00)
[2018-08-21] MEDS: INSULIN LISPRO 100 UNITS/ML, PEN SQ-INSULIN SCH (22:35)
[2018-08-22] VITALS (7 sets, daily range): BP systolic 127–197; BP diastolic 71–122
[2018-08-22 01:27] LABS: BASOPHILS % (AUTO) 0 % (0-1); EOSINOPHILS # (AUTO) 0.01 x10^3/uL (0-0.4); EOSINOPHILS % (AUTO) 0 % (1-7); LYMPHOCYTES # (AUTO) 1.35 x10^3/uL (1-3.4); LYMPHOCYTES % (AUTO) 14 % (22-44); MD NO; MEAN CORPUSCULAR HEMOGLOBIN 25.2 pg (27.5-34.5); MEAN CORPUSCULAR HGB CONC 32.1 g/dL (33.2-36.2); MEAN CORPUSCULAR VOLUME 78.4 fL (81-97); MEAN PLATELET VOLUME 7.9 fL (7.4-10.4); MONOCYTES # (AUTO) 0.58 x10^3/uL (0.2-0.8); MONOCYTES % (AUTO) 6 % (2-9); NEUTROPHILS # (AUTO) 7.66 x10^3/uL (1.8-6.8); NEUTROPHILS % (AUTO) 80 % (42-75); PLATELET COUNT 323 x10^3/uL (130-400); RED BLOOD COUNT 3.67 x10^6/uL (4.38-5.82); RED CELL DISTRIBUTION WIDTH 19.9 % (9.4-14.8)
[2018-08-22 01:38] LABS: ALANINE AMINOTRANSFERASE 25 U/L (12-78); ALBUMIN 3.4 g/dL (3.4-5.0); ANION GAP 11 mmol/L (5-15); CALCIUM 8.9 mg/dL (8.5-10.1); CHLORIDE 104 mmol/L (98-107); CHOLESTEROL, TOTAL 170 mg/dL (140-239); CREATININE 0.77 mg/dL (0.7-1.3)
[2018-08-22 01:40] LABS: ALKALINE PHOSPHATASE 128 U/L (45-117); BILIRUBIN,TOTAL 0.2 mg/dL (0.2-1.0); CHOL/HDL RATIO 4.3; HDL CHOL % 24 % (26-37); HDL CHOLESTEROL (DIRECT) 40 mg/dL (40-60); LDL CHOLESTEROL,CALCULATED 89 mg/dL (54-169); LDL/HDL RATIO 2.2 (0.5-3.0); TOTAL PROTEIN 7.3 g/dL (6.4-8.2); TRIGLYCERIDES 203 mg/dL (50-200); VLDL CHOLESTEROL 41 mg/dL (0-25)
[2018-08-22] MEDS: ONDANSETRON 2MG/ML, 2ML IVPush PRN (02:19)
[2018-08-22] MEDS: ACETAMINOPHEN 325 MG TABLET PO PRN ×2 (04:13→12:51)
[2018-08-22] MEDS: ASPIRIN 81 MG TABLET EC PO SCH (04:13)
[2018-08-22] MEDS: HEPARIN 5,000 UNITS/ML, 1ML SQ SCH (04:13)
[2018-08-22] MEDS: LABETALOL 5MG/ML, 20ML IVPush PRN (07:35)
[2018-08-22] MEDS: INSULIN LISPRO 100 UNITS/ML, PEN SQ-INSULIN SCH ×4 (07:37→21:36)
[2018-08-22] MEDS ORDERED: HEPARIN 25,000 UNITS/500ML PMX 500 ML ONE (08:03)
[2018-08-22] MEDS: ISOSORBIDE MONONITRATE ER 60 MG TABLET PO SCH (08:07)
[2018-08-22] MEDS: FERROUS GLUCONATE 324 MG TABLET PO SCH ×2 (08:08→17:56)
[2018-08-22] MEDS: BUPROPION SR 100 MG TABLET PO SCH ×2 (08:08→21:28)
[2018-08-22] MEDS: CYANOCOBALAMIN 1,000 MCG TABLET PO SCH (08:08)
[2018-08-22] MEDS: TAMSULOSIN 0.4 MG CAP.ER.24H PO SCH (08:08)
[2018-08-22] MEDS: AMLODIPINE 5 MG TABLET PO SCH (08:14)
[2018-08-22] MEDS ORDERED: HEPARIN 5,000 UNITS/ML, 1ML IV ONE (08:30)
[2018-08-22] MEDS ORDERED: HEPARIN 5,000 UNITS/ML, 1ML IV PRN (08:30)
[2018-08-22] MEDS ORDERED: HEPARIN 25,000 UNITS/500ML PMX 500 ML IV PRN (08:30)
[2018-08-22] MEDS ORDERED: LISINOPRIL 20 MG TABLET PO SCH (09:00)
[2018-08-22] MEDS: IRON SUCROSE COMPLEX 100MG/5ML IV SCH (11:37)
[2018-08-22] MEDS ORDERED: VERAPAMIL 2.5 MG/ML, 2ML ONE (15:13)
[2018-08-22] MEDS ORDERED: TICAGRELOR 90 MG TABLET ONE (15:13)
[2018-08-22] MEDS ORDERED: MIDAZOLAM 1 MG/ML, 5ML ONE (15:13)
[2018-08-22] MEDS ORDERED: FENTANYL PF 100 MCG/2ML ONE (15:13)
[2018-08-22] MEDS ORDERED: BIVALIRUDIN 250 MG ONE (15:14)
[2018-08-22] MEDS ORDERED: HEPARIN 1,000 UNITS/ML, 10ML ONE (15:14)
[2018-08-22] MEDS ORDERED: LIDOCAINE-MPF 1%, 5ML ONE (15:14)
[2018-08-22] MEDS ORDERED: BIVALIRUDIN 250 MG in DEXTROSE 5% 100 ML IV SCH (16:34)
[2018-08-22 16:54] LABS: MICROSCOPIC NOT IND
[2018-08-22 16:59] LABS: CULTURE INDICATED? NO
[2018-08-22 18:20] LABS: BASOPHILS % (AUTO) 0 % (0-1); EOSINOPHILS # (AUTO) 0.01 x10^3/uL (0-0.4); EOSINOPHILS % (AUTO) 0 % (1-7); LYMPHOCYTES # (AUTO) 0.98 x10^3/uL (1-3.4); LYMPHOCYTES % (AUTO) 9 % (22-44); MD NO; MEAN CORPUSCULAR HEMOGLOBIN 25.6 pg (27.5-34.5); MEAN CORPUSCULAR HGB CONC 32.5 g/dL (33.2-36.2); MEAN CORPUSCULAR VOLUME 78.7 fL (81-97); MEAN PLATELET VOLUME 7.6 fL (7.4-10.4); MONOCYTES # (AUTO) 0.69 x10^3/uL (0.2-0.8); MONOCYTES % (AUTO) 7 % (2-9); NEUTROPHILS # (AUTO) 8.81 x10^3/uL (1.8-6.8); NEUTROPHILS % (AUTO) 84 % (42-75); PLATELET COUNT 271 x10^3/uL (130-400); RED BLOOD COUNT 3.15 x10^6/uL (4.38-5.82); RED CELL DISTRIBUTION WIDTH 19.5 % (9.4-14.8)
[2018-08-22 18:30] LABS: ANION GAP 10 mmol/L (5-15); CALCIUM 8.7 mg/dL (8.5-10.1); CHLORIDE 105 mmol/L (98-107); CREATININE 0.69 mg/dL (0.7-1.3)
[2018-08-22 18:49] LABS: INTERNATIONAL NORMALIZED RATIO 2.25 (0.93-1.1); PROTHROMBIN TIME 22.8 Seconds (9.6-11.5)
[2018-08-22] MEDS: TICAGRELOR 90 MG TABLET PO SCH (21:27)
[2018-08-22] MEDS: METOPROLOL TARTRATE 50 MG TABLET PO SCH (21:28)
[2018-08-22] MEDS: ATORVASTATIN 40 MG TABLET PO SCH (21:28)
[2018-08-22] MEDS: INSULIN GLARGINE 100 UNITS/ML, PEN SQ-INSULIN SCH (21:36)
[2018-08-23] VITALS (11 sets, daily range): BP systolic 106–136; BP diastolic 59–77
[2018-08-23] MEDS: ACETAMINOPHEN 325 MG TABLET PO PRN (01:03)
[2018-08-23] MEDS: ASPIRIN 81 MG TABLET EC PO SCH ×2 (05:06→08:26)
[2018-08-23] MEDS: METOPROLOL TARTRATE 50 MG TABLET PO SCH (05:07)
[2018-08-23 05:29] LABS: BASOPHILS # (AUTO) 0.01 x10^3/uL (0-0.1); BASOPHILS % (AUTO) 0 % (0-1); EOSINOPHILS % (AUTO) 0 % (1-7); LYMPHOCYTES # (AUTO) 0.88 x10^3/uL (1-3.4); LYMPHOCYTES % (AUTO) 9 % (22-44); MD NO; MEAN CORPUSCULAR HGB CONC 31.9 g/dL (33.2-36.2); MEAN CORPUSCULAR VOLUME 78.3 fL (81-97); MONOCYTES # (AUTO) 0.71 x10^3/uL (0.2-0.8); MONOCYTES % (AUTO) 8 % (2-9); NEUTROPHILS # (AUTO) 7.77 x10^3/uL (1.8-6.8); NEUTROPHILS % (AUTO) 83 % (42-75); PLATELET COUNT 272 x10^3/uL (130-400); RED BLOOD COUNT 3.02 x10^6/uL (4.38-5.82); RED CELL DISTRIBUTION WIDTH 19.9 % (9.4-14.8)
[2018-08-23 05:41] LABS: ANION GAP 11 mmol/L (5-15); CALCIUM 8.6 mg/dL (8.5-10.1); CHLORIDE 109 mmol/L (98-107); CREATININE 0.68 mg/dL (0.7-1.3)
[2018-08-23] MEDS: INSULIN LISPRO 100 UNITS/ML, PEN SQ-INSULIN SCH ×4 (08:00→20:40)
[2018-08-23] MEDS: IRON SUCROSE COMPLEX 100MG/5ML IV SCH (08:26)
[2018-08-23] MEDS: TICAGRELOR 90 MG TABLET PO SCH ×2 (08:26→20:37)
[2018-08-23] MEDS: BUPROPION SR 100 MG TABLET PO SCH ×2 (08:27→20:36)
[2018-08-23] MEDS: TAMSULOSIN 0.4 MG CAP.ER.24H PO SCH (08:27)
[2018-08-23] MEDS: FERROUS GLUCONATE 324 MG TABLET PO SCH ×2 (08:27→18:11)
[2018-08-23] MEDS: CYANOCOBALAMIN 1,000 MCG TABLET PO SCH (08:28)
[2018-08-23] MEDS: ISOSORBIDE MONONITRATE ER 60 MG TABLET PO SCH (08:28)
[2018-08-23] MEDS ORDERED: LISINOPRIL 5 MG TABLET PO SCH (09:00)
[2018-08-23] MEDS ORDERED: POTASSIUM CHLORIDE 20 MEQ TAB.ER.PRT PO ONE (14:00)
[2018-08-23] MEDS: ENOXAPARIN 40 MG/0.4 ML SQ SCH (15:08)
[2018-08-23] MEDS ORDERED: METOPROLOL TARTRATE 50 MG TABLET PO SCH (18:00)
[2018-08-23] MEDS: METOPROLOL TARTRATE 25 MG TABLET PO SCH (18:11)
[2018-08-23] MEDS: ATORVASTATIN 40 MG TABLET PO SCH (20:36)
[2018-08-23] MEDS: INSULIN GLARGINE 100 UNITS/ML, PEN SQ-INSULIN SCH (20:41)
[2018-08-23] MEDS ORDERED: LORazepam 2 MG/ML, 1ML IVPush ONE (22:00)
[2018-08-24 01:09] VITALS: BP 136/85
[2018-08-24 04:52] VITALS: BP 150/70
[2018-08-24] MEDS: METOPROLOL TARTRATE 25 MG TABLET PO SCH ×2 (04:56→17:54)
[2018-08-24] MEDS: ASPIRIN 81 MG TABLET EC PO SCH ×2 (04:56→08:35)
[2018-08-24 05:10] LABS: BASOPHILS # (AUTO) 0.03 x10^3/uL (0-0.1); BASOPHILS % (AUTO) 0 % (0-1); EOSINOPHILS % (AUTO) 0 % (1-7); LYMPHOCYTES # (AUTO) 0.85 x10^3/uL (1-3.4); LYMPHOCYTES % (AUTO) 7 % (22-44); MD NO; MEAN CORPUSCULAR HEMOGLOBIN 25.1 pg (27.5-34.5); MEAN CORPUSCULAR HGB CONC 31.9 g/dL (33.2-36.2); MEAN CORPUSCULAR VOLUME 78.7 fL (81-97); MEAN PLATELET VOLUME 8.4 fL (7.4-10.4); MONOCYTES # (AUTO) 0.52 x10^3/uL (0.2-0.8); MONOCYTES % (AUTO) 4 % (2-9); NEUTROPHILS # (AUTO) 11.08 x10^3/uL (1.8-6.8); NEUTROPHILS % (AUTO) 89 % (42-75); PLATELET COUNT 287 x10^3/uL (130-400); RED CELL DISTRIBUTION WIDTH 20.3 % (9.4-14.8)
[2018-08-24 05:14] LABS: ANION GAP 6 mmol/L (5-15); CALCIUM 8.1 mg/dL (8.5-10.1); CHLORIDE 109 mmol/L (98-107); CREATININE 0.71 mg/dL (0.7-1.3)
[2018-08-24] MEDS: INSULIN LISPRO 100 UNITS/ML, PEN SQ-INSULIN SCH ×4 (08:00→20:58)
[2018-08-24 08:33] VITALS: BP 140/84
[2018-08-24] MEDS: TAMSULOSIN 0.4 MG CAP.ER.24H PO SCH (08:35)
[2018-08-24] MEDS: TICAGRELOR 90 MG TABLET PO SCH ×2 (08:35→20:57)
[2018-08-24] MEDS: BUPROPION SR 100 MG TABLET PO SCH ×2 (08:35→20:56)
[2018-08-24] MEDS: ISOSORBIDE MONONITRATE ER 60 MG TABLET PO SCH (08:35)
[2018-08-24] MEDS: IRON SUCROSE COMPLEX 100MG/5ML IV SCH (08:35)
[2018-08-24] MEDS: FERROUS GLUCONATE 324 MG TABLET PO SCH ×2 (08:35→17:54)
[2018-08-24] MEDS: CYANOCOBALAMIN 1,000 MCG TABLET PO SCH (08:38)
[2018-08-24] MEDS ORDERED: LISINOPRIL 5 MG TABLET PO SCH (09:00)
[2018-08-24 09:30] LABS: PROTHROMBIN TIME 10.3 Seconds (9.6-11.5)
[2018-08-24] MEDS ORDERED: POTASSIUM CHLORIDE 20 MEQ TAB.ER.PRT PO ONE ×2 (11:30→15:00)
[2018-08-24] MEDS: ENOXAPARIN 40 MG/0.4 ML SQ SCH (12:53)
[2018-08-24 14:17] VITALS: BP 146/80
[2018-08-24] MEDS ORDERED: FUROSEMIDE 20 MG/2 ML IV ONE (15:00)
[2018-08-24 19:59] VITALS: BP 184/82
[2018-08-24] MEDS: ATORVASTATIN 40 MG TABLET PO SCH (20:57)
[2018-08-24] MEDS: INSULIN GLARGINE 100 UNITS/ML, PEN SQ-INSULIN SCH (21:12)
[2018-08-25 02:02] VITALS: BP 177/88
[2018-08-25] MEDS: LABETALOL 5MG/ML, 20ML IVPush PRN (02:06)
[2018-08-25 04:56] LABS: BASOPHILS # (AUTO) 0.04 x10^3/uL (0-0.1); BASOPHILS % (AUTO) 0 % (0-1); EOSINOPHILS # (AUTO) 0.01 x10^3/uL (0-0.4); EOSINOPHILS % (AUTO) 0 % (1-7); LYMPHOCYTES % (AUTO) 5 % (22-44); MD NO; MEAN CORPUSCULAR HEMOGLOBIN 25.7 pg (27.5-34.5); MEAN CORPUSCULAR HGB CONC 32.4 g/dL (33.2-36.2); MEAN CORPUSCULAR VOLUME 79.2 fL (81-97); MEAN PLATELET VOLUME 8.1 fL (7.4-10.4); MONOCYTES # (AUTO) 0.81 x10^3/uL (0.2-0.8); MONOCYTES % (AUTO) 6 % (2-9); NEUTROPHILS # (AUTO) 12.18 x10^3/uL (1.8-6.8); NEUTROPHILS % (AUTO) 89 % (42-75); PLATELET COUNT 294 x10^3/uL (130-400); RED BLOOD COUNT 3.19 x10^6/uL (4.38-5.82); RED CELL DISTRIBUTION WIDTH 21.2 % (9.4-14.8)
[2018-08-25 05:05] LABS: ANION GAP 13 mmol/L (5-15); CALCIUM 8.7 mg/dL (8.5-10.1); CHLORIDE 106 mmol/L (98-107); CREATININE 0.78 mg/dL (0.7-1.3)
[2018-08-25] MEDS: METOPROLOL TARTRATE 25 MG TABLET PO SCH ×2 (06:15→16:48)
[2018-08-25] MEDS: INSULIN LISPRO 100 UNITS/ML, PEN SQ-INSULIN SCH ×4 (07:00→21:00)
[2018-08-25 07:59] VITALS: BP 152/79
[2018-08-25] MEDS ORDERED: LEVOFLOXACIN/PMX 750MG/150ML 150 ML IV SCH (08:00)
[2018-08-25] MEDS: IRON SUCROSE COMPLEX 100MG/5ML IV SCH (09:00)
[2018-08-25] MEDS ORDERED: POTASSIUM CHLORIDE 40 MEQ in SODIUM CHLORIDE 0.9% 500 ML IV ONE (09:00)
[2018-08-25] MEDS: BUPROPION SR 100 MG TABLET PO SCH ×2 (10:11→21:32)
[2018-08-25] MEDS: LISINOPRIL 10 MG TABLET PO SCH (10:12)
[2018-08-25] MEDS: ISOSORBIDE MONONITRATE ER 60 MG TABLET PO SCH (10:12)
[2018-08-25] MEDS: ASPIRIN 81 MG TABLET EC PO SCH (10:12)
[2018-08-25] MEDS: FERROUS GLUCONATE 324 MG TABLET PO SCH ×2 (10:12→16:48)
[2018-08-25] MEDS: CYANOCOBALAMIN 1,000 MCG TABLET PO SCH (10:12)
[2018-08-25] MEDS: TAMSULOSIN 0.4 MG CAP.ER.24H PO SCH (10:12)
[2018-08-25] MEDS: TICAGRELOR 90 MG TABLET PO SCH ×2 (10:27→21:31)
[2018-08-25 12:05] VITALS: BP 149/80
[2018-08-25] MEDS: ONDANSETRON 2MG/ML, 2ML IVPush PRN (12:07)
[2018-08-25] MEDS: ACETAMINOPHEN 325 MG TABLET PO PRN (12:13)
[2018-08-25] MEDS: ENOXAPARIN 40 MG/0.4 ML SQ SCH (13:16)
[2018-08-25 16:48] VITALS: BP 148/76
[2018-08-25 18:25] VITALS: BP 152/78
[2018-08-25 20:50] LABS: OCCULT BLOOD NEGATIVE (NEGATIVE)
[2018-08-25] MEDS: ATORVASTATIN 40 MG TABLET PO SCH (21:32)
[2018-08-25] MEDS: INSULIN GLARGINE 100 UNITS/ML, PEN SQ-INSULIN SCH (21:32)
[2018-08-26 02:45] VITALS: BP 159/83
[2018-08-26] MEDS: ONDANSETRON 2MG/ML, 2ML IVPush PRN (02:50)
[2018-08-26 05:09] LABS: MEAN CORPUSCULAR HEMOGLOBIN 26.3 pg (27.5-34.5); MEAN CORPUSCULAR HGB CONC 32.8 g/dL (33.2-36.2); MEAN CORPUSCULAR VOLUME 80.2 fL (81-97); MEAN PLATELET VOLUME 8.2 fL (7.4-10.4); PLATELET COUNT 277 x10^3/uL (130-400); RED BLOOD COUNT 2.95 x10^6/uL (4.38-5.82); RED CELL DISTRIBUTION WIDTH 22.2 % (9.4-14.8)
[2018-08-26 05:12] VITALS: BP 175/82
[2018-08-26 05:20] LABS: ANION GAP 12 mmol/L (5-15); CALCIUM 8.5 mg/dL (8.5-10.1); CHLORIDE 106 mmol/L (98-107)
[2018-08-26 05:21] LABS: CREATININE 0.76 mg/dL (0.7-1.3)
[2018-08-26 06:01] LABS: BASOPHILS % (AUTO) 0 % (0-1); EOSINOPHILS # (AUTO) 0.02 x10^3/uL (0-0.4); EOSINOPHILS % (AUTO) 0 % (1-7); LYMPHOCYTES # (AUTO) 0.83 x10^3/uL (1-3.4); LYMPHOCYTES % (AUTO) 9 % (22-44); MD SCAN; MONOCYTES # (AUTO) 0.63 x10^3/uL (0.2-0.8); MONOCYTES % (AUTO) 7 % (2-9); NEUTROPHILS # (AUTO) 7.87 x10^3/uL (1.8-6.8); NEUTROPHILS % (AUTO) 84 % (42-75)
[2018-08-26] MEDS: METOPROLOL TARTRATE 25 MG TABLET PO SCH ×2 (06:15→17:44)
[2018-08-26] MEDS: INSULIN LISPRO 100 UNITS/ML, PEN SQ-INSULIN SCH ×4 (07:00→20:19)
[2018-08-26] MEDS ORDERED: POTASSIUM CHLORIDE 20 MEQ TAB.ER.PRT PO ONE ×3 (07:30→12:00)
[2018-08-26 07:45] VITALS: BP 144/83
[2018-08-26] MEDS: FERROUS GLUCONATE 324 MG TABLET PO SCH ×2 (08:14→17:43)
[2018-08-26] MEDS: TICAGRELOR 90 MG TABLET PO SCH ×2 (09:22→20:18)
[2018-08-26] MEDS: LISINOPRIL 10 MG TABLET PO SCH (09:22)
[2018-08-26] MEDS: CYANOCOBALAMIN 1,000 MCG TABLET PO SCH (09:22)
[2018-08-26] MEDS: ISOSORBIDE MONONITRATE ER 60 MG TABLET PO SCH (09:22)
[2018-08-26] MEDS: AMLODIPINE 5 MG TABLET PO SCH (09:22)
[2018-08-26] MEDS: ASPIRIN 81 MG TABLET EC PO SCH (09:22)
[2018-08-26] MEDS: TAMSULOSIN 0.4 MG CAP.ER.24H PO SCH (09:22)
[2018-08-26] MEDS: BUPROPION SR 100 MG TABLET PO SCH ×2 (09:22→20:18)
[2018-08-26] MEDS: ACETAMINOPHEN 325 MG TABLET PO PRN ×2 (09:26→21:10)
[2018-08-26] MEDS: LEVOFLOXACIN 750 MG TABLET PO SCH (12:27)
[2018-08-26 13:00] VITALS: BP 122/72
[2018-08-26] MEDS: ENOXAPARIN 40 MG/0.4 ML SQ SCH (15:49)
[2018-08-26 20:13] VITALS: BP 129/71
[2018-08-26] MEDS: ATORVASTATIN 40 MG TABLET PO SCH (20:18)
[2018-08-26] MEDS: INSULIN GLARGINE 100 UNITS/ML, PEN SQ-INSULIN SCH (20:18)
[2018-08-27] MEDS ORDERED: MELATONIN 3 MG TABLET ONE (00:51)
[2018-08-27 00:59] VITALS: BP 128/74
[2018-08-27] MEDS ORDERED: MELATONIN 3 MG TABLET PO PRN (01:00)
[2018-08-27 05:08] LABS: MEAN CORPUSCULAR HEMOGLOBIN 26.2 pg (27.5-34.5); MEAN CORPUSCULAR HGB CONC 32.6 g/dL (33.2-36.2); MEAN CORPUSCULAR VOLUME 80.3 fL (81-97); MEAN PLATELET VOLUME 8.5 fL (7.4-10.4); PLATELET COUNT 292 x10^3/uL (130-400); RED BLOOD COUNT 3.13 x10^6/uL (4.38-5.82); RED CELL DISTRIBUTION WIDTH 22.1 % (9.4-14.8)
[2018-08-27 05:09] VITALS: BP 156/78
[2018-08-27] MEDS: ACETAMINOPHEN 325 MG TABLET PO PRN (05:11)
[2018-08-27] MEDS: METOPROLOL TARTRATE 25 MG TABLET PO SCH (05:11)
[2018-08-27 05:17] LABS: ANION GAP 9 mmol/L (5-15); CALCIUM 8.5 mg/dL (8.5-10.1); CHLORIDE 105 mmol/L (98-107); CREATININE 0.82 mg/dL (0.7-1.3)
[2018-08-27 06:00] LABS: BASOPHILS # (AUTO) 0.02 x10^3/uL (0-0.1); BASOPHILS % (AUTO) 0 % (0-1); EOSINOPHILS # (AUTO) 0.11 x10^3/uL (0-0.4); EOSINOPHILS % (AUTO) 2 % (1-7); LYMPHOCYTES # (AUTO) 1.18 x10^3/uL (1-3.4); LYMPHOCYTES % (AUTO) 17 % (22-44); MD SCAN; MONOCYTES % (AUTO) 7 % (2-9); NEUTROPHILS # (AUTO) 5.31 x10^3/uL (1.8-6.8); NEUTROPHILS % (AUTO) 75 % (42-75)
[2018-08-27] MEDS: INSULIN LISPRO 100 UNITS/ML, PEN SQ-INSULIN SCH ×2 (07:00→11:00)
[2018-08-27 07:22] VITALS: BP 138/79
[2018-08-27] MEDS ORDERED: FERR325T16 PO (09:35)
[2018-08-27] MEDS ORDERED: ATOR40TA78 PO (09:35)
[2018-08-27] MEDS ORDERED: ASPI-621 PO (09:35)
[2018-08-27] MEDS ORDERED: METO25TA35 PO (09:35)
[2018-08-27] MEDS ORDERED: AMLO10TA6 PO (09:35)
[2018-08-27] MEDS ORDERED: TICA90TA PO (09:35)
[2018-08-27] MEDS ORDERED: ISOS60TA36 PO (09:35)
[2018-08-27] MEDS ORDERED: LEVO750T26 PO (09:35)
[2018-08-27] MEDS ORDERED: GLIM1TAB2 PO (09:35)
[2018-08-27] MEDS ORDERED: BUPR-173 PO (09:35)
[2018-08-27] MEDS ORDERED: LISI-167 PO (09:35)
[2018-08-27] MEDS ORDERED: TAMS-11 PO (09:35)
[2018-08-27] MEDS ORDERED: DOCU-131 PO (09:35)
[2018-08-27] MEDS ORDERED: CYAN10005 PO (09:35)
[2018-08-27] MEDS: ASPIRIN 81 MG TABLET EC PO SCH (09:36)
[2018-08-27] MEDS: FERROUS GLUCONATE 324 MG TABLET PO SCH (09:36)
[2018-08-27] MEDS: BUPROPION SR 100 MG TABLET PO SCH (09:37)
[2018-08-27] MEDS: TICAGRELOR 90 MG TABLET PO SCH (09:37)
[2018-08-27] MEDS: LISINOPRIL 10 MG TABLET PO SCH (09:38)
[2018-08-27] MEDS: ISOSORBIDE MONONITRATE ER 60 MG TABLET PO SCH (09:39)
[2018-08-27] MEDS: AMLODIPINE 5 MG TABLET PO SCH (09:39)
[2018-08-27] MEDS: CYANOCOBALAMIN 1,000 MCG TABLET PO SCH (09:39)
[2018-08-27] MEDS: TAMSULOSIN 0.4 MG CAP.ER.24H PO SCH (09:39)
[2018-08-27] MEDS: LEVOFLOXACIN 750 MG TABLET PO SCH (11:19)
[2018-08-27 13:42] VITALS: BP 137/77
== END 2018-08-27 15:05 | DRG 248 ==
LOC: ED 19:25 → EDIP 19:54 → 5SO 20:52
PROVIDERS: ADMIT Internal Medicine; ATTEND Internal Medicine
PROC: 02703DZ Dilation of Coronary Artery, One Artery with Intraluminal Device, Percutaneous Approach (ICD-10-PCS; principal; 2018-08-21)
PROC: 4A023N7 Measurement of Cardiac Sampling and Pressure, Left Heart, Percutaneous Approach (ICD-10-PCS; 2018-08-21)
PROC: B2111ZZ Fluoroscopy of Multiple Coronary Arteries using Low Osmolar Contrast (ICD-10-PCS; 2018-08-21)
PROC: B2151ZZ Fluoroscopy of Left Heart using Low Osmolar Contrast (ICD-10-PCS; 2018-08-21)
DX: I21.4 Non-ST elevation (NSTEMI) myocardial infarction (principal); J18.1 Lobar pneumonia, unspecified organism; I63.81 Other cerebral infarction due to occlusion or stenosis of small artery; I16.1 Hypertensive emergency; E87.1 Hypo-osmolality and hyponatremia; R47.01 Aphasia; I23.7 Postinfarction angina; J81.1 Chronic pulmonary edema; I69.351 Hemiplegia and hemiparesis following cerebral infarction affecting right dominant side; E11.9 Type 2 diabetes mellitus without complications; F32.9 Major depressive disorder, single episode, unspecified; D50.9 Iron deficiency anemia, unspecified; K25.9 Gastric ulcer, unspecified as acute or chronic, without hemorrhage or perforation; E78.5 Hyperlipidemia, unspecified; E87.6 Hypokalemia; I10 Essential (primary) hypertension; I25.119 Atherosclerotic heart disease of native coronary artery with unspecified angina pectoris; Y95 Nosocomial condition; M19.012 Primary osteoarthritis, left shoulder; N40.0 Benign prostatic hyperplasia without lower urinary tract symptoms; W18.30XA Fall on same level, unspecified, initial encounter; Y93.89 Activity, other specified; Y92.89 Other specified places as the place of occurrence of the external cause; Y99.8 Other external cause status; Z79.4 Long term (current) use of insulin; Z79.82 Long term (current) use of aspirin; Z91.14 Patient's other noncompliance with medication regimen; Z95.5 Presence of coronary angioplasty implant and graft; Z79.899 Other long term (current) drug therapy
CPT/HCPCS: 0399T; 36415; 70450; 71045; 71275; 80048; 80053; 80061; 81003; 82040; 82140; 82272; 82306; 82607; 82728; 82962; 83036; 83540; 83550; 83735; 84439; 84443; 84466; 84484; 85025; 85520; 85610; 85730; 92928; 93005; 93306; 93458; 93880; 96374; 96375; 96376; 99156; 99157; 99285; C1769; C1876; C1894; G0378; J0583; J1644; J1650; J1756; J1956; J2250; J2405; J3010; J3480; Q9967; 92523-GN; C1725; C1887; G0515-GN; J0360; J1815; J1940; J2060; J2270; J7030; J7040

== ENCOUNTER 2018-10-21 15:30 | Inpatient (IN) | payer MEDICARE ==
[~2018-10-21] VITALS: Ht 170.2 cm; Wt 67.3 kg
[~2018-10-21 15:30] MED LIST changes: +AMLO-150 PO; -AMLO10TA6 PO; +AMLO10TA8 PO; -AMLO5TAB7 PO; -ASPI-621 PO; +ASPI81TA45 PO; +ATOR20TA37 PO; -ATOR20TA9 PO; +FERR325T16 PO; +GLIM1TAB2 PO; +ISOS60TA36 PO; +LEVO750T26 PO; +TICA90TA PO
[2018-10-21] MEDS ORDERED: PLEASE ENTER HEIGHT AND WEIGHT MC SCH (16:00)
[2018-10-21] MEDS ORDERED: SODIUM CHLORIDE FLUSH 10ML SYR IVF ONE (16:00)
[2018-10-21] MEDS ORDERED: HYDROcodone/APAP 5/325 TABLET PO ONE (17:30)
--- NOTE | 2018-10-21 17:30 | NUR ---
RN INTO DISCHARGE PT, PT UNABLE TO MOVE LEG D/T PAIN TO GET UP TO AMBULATE WITH WALKER. AWARE. ORDER FOR [facility]. WILL ADMINISTER AND REASSESS PT.
[2018-10-21] MEDS ORDERED: HYDROcodone/APAP 5/325 TABLET ONE (17:34)
--- NOTE | 2018-10-21 19:25 | NUR ---
PT TO CT
[2018-10-21] MEDS ORDERED: SODIUM CHLORIDE FLUSH 10ML SYR IVF PRN (19:30)
--- NOTE | 2018-10-21 19:31 | NUR ---
UNABLE TO OBTAIN MED LIST, PT STATES HE STOPPED HIS HOME MEDS A COUPLE DAYS AGO AND CANT REMEMBER THE NAMES.
[2018-10-21 19:34] LABS: BASOPHILS # (AUTO) 0.03 x10^3/uL (0-0.1); BASOPHILS % (AUTO) 0 % (0-1); EOSINOPHILS # (AUTO) 0.08 x10^3/uL (0-0.4); EOSINOPHILS % (AUTO) 1 % (1-7); LYMPHOCYTES # (AUTO) 1.47 x10^3/uL (1-3.4); LYMPHOCYTES % (AUTO) 16 % (22-44); MD NO; MEAN CORPUSCULAR HEMOGLOBIN 27.7 pg (27.5-34.5); MEAN CORPUSCULAR HGB CONC 32.9 g/dL (33.2-36.2); MEAN CORPUSCULAR VOLUME 84.3 fL (81-97); MEAN PLATELET VOLUME 8.3 fL (7.4-10.4); MONOCYTES # (AUTO) 0.42 x10^3/uL (0.2-0.8); MONOCYTES % (AUTO) 4 % (2-9); NEUTROPHILS # (AUTO) 7.47 x10^3/uL (1.8-6.8); NEUTROPHILS % (AUTO) 79 % (42-75); PLATELET COUNT 293 x10^3/uL (130-400); RED BLOOD COUNT 5.23 x10^6/uL (4.38-5.82); RED CELL DISTRIBUTION WIDTH 19.8 % (9.4-14.8)
[2018-10-21 19:40] LABS: ALANINE AMINOTRANSFERASE 41 U/L (12-78); ALBUMIN 4.5 g/dL (3.4-5.0); ANION GAP 8 mmol/L (5-15); CALCIUM 8.9 mg/dL (8.5-10.1); CHLORIDE 110 mmol/L (98-107); CREATININE 0.93 mg/dL (0.7-1.3)
[2018-10-21 19:43] LABS: ALKALINE PHOSPHATASE 153 U/L (45-117); BILIRUBIN,TOTAL 0.2 mg/dL (0.2-1.0); TOTAL PROTEIN 8.2 g/dL (6.4-8.2)
[2018-10-21 20:10] VITALS: BP 170/102
[2018-10-21 20:35] VITALS: BP 162/98
[2018-10-21] MEDS ORDERED: DOCUSATE 100 MG CAPSULE PO PRN (21:00)
[2018-10-21] MEDS: ENOXAPARIN 40 MG/0.4 ML SQ SCH (21:59)
[2018-10-21] MEDS: LIDODERM 5% PATCH TD PRN (21:59)
[2018-10-22] VITALS (7 sets, daily range): BP systolic 151–179; BP diastolic 80–101
[2018-10-22] MEDS ORDERED: HYDROcodone/APAP 5/325 TABLET PO ONE (02:00)
[2018-10-22 03:12] LABS: MICROSCOPIC NOT IND
[2018-10-22 03:37] LABS: CULTURE INDICATED? NO
[2018-10-22] MEDS: ACETAMINOPHEN 325 MG TABLET PO PRN ×3 (05:53→20:37)
[2018-10-22] MEDS: hydrALAzine 20 MG/ML, 1ML IVPush PRN ×3 (07:32→19:16)
[2018-10-22] MEDS ORDERED: DOCUSATE 100 MG CAPSULE PO PRN (13:30)
[2018-10-22] MEDS: LIDODERM 5% PATCH TD SCH (13:30)
[2018-10-22] MEDS: LIDODERM 5% PATCH TD PRN (13:57)
[2018-10-22] MEDS: FERROUS GLUCONATE 324 MG TABLET PO SCH (17:35)
[2018-10-22] MEDS: METOPROLOL TARTRATE 25 MG TABLET PO SCH (17:36)
[2018-10-22] MEDS: BUPROPION SR 100 MG TABLET PO SCH (20:37)
[2018-10-22] MEDS: TICAGRELOR 90 MG TABLET PO SCH (20:37)
[2018-10-22] MEDS: ATORVASTATIN 40 MG TABLET PO SCH (20:37)
[2018-10-22] MEDS: ONDANSETRON ODT 4 MG PO PRN (23:06)
[2018-10-23] MEDS: OXYcodone/APAP 5/325MG TABLET PO PRN (00:32)
[2018-10-23 01:46] VITALS: BP 166/81
[2018-10-23] MEDS ORDERED: FAMOTIDINE 20 MG/2 ML IVPush ONE (02:00)
[2018-10-23] MEDS ORDERED: PROMETHAZINE 25 MG/ML, 1ML IM ONE (02:00)
[2018-10-23 05:29] VITALS: BP 172/100
[2018-10-23] MEDS: METOPROLOL TARTRATE 25 MG TABLET PO SCH ×2 (05:29→17:25)
[2018-10-23 06:43] VITALS: BP 171/87
[2018-10-23] MEDS: ENOXAPARIN 40 MG/0.4 ML SQ SCH (08:26)
[2018-10-23] MEDS: ASPIRIN 81 MG TABLET EC PO SCH (08:26)
[2018-10-23] MEDS: ISOSORBIDE MONONITRATE ER 60 MG TABLET PO SCH (08:27)
[2018-10-23] MEDS: CYANOCOBALAMIN 1,000 MCG TABLET PO SCH (08:27)
[2018-10-23] MEDS: BUPROPION SR 100 MG TABLET PO SCH ×2 (08:27→20:37)
[2018-10-23] MEDS: TAMSULOSIN 0.4 MG CAP.ER.24H PO SCH (08:27)
[2018-10-23] MEDS: TICAGRELOR 90 MG TABLET PO SCH ×2 (08:27→20:37)
[2018-10-23] MEDS: FERROUS GLUCONATE 324 MG TABLET PO SCH ×2 (08:27→17:25)
[2018-10-23] MEDS ORDERED: LISINOPRIL 10 MG TABLET PO SCH (09:00)
[2018-10-23] MEDS ORDERED: AMLODIPINE 10 MG TAB PO SCH (09:00)
[2018-10-23 12:55] VITALS: BP 115/56
[2018-10-23] MEDS: LIDODERM 5% PATCH TD SCH (17:26)
[2018-10-23 18:57] VITALS: BP 119/68
[2018-10-23] MEDS: ATORVASTATIN 40 MG TABLET PO SCH (20:37)
[2018-10-24 00:51] VITALS: BP 116/70
[2018-10-24] MEDS ORDERED: OLANZAPINE 5 MG TABLET PO ONE (01:00)
[2018-10-24 05:32] VITALS: BP 154/89
[2018-10-24] MEDS: METOPROLOL TARTRATE 25 MG TABLET PO SCH ×2 (05:37→18:00)
[2018-10-24] MEDS: ACETAMINOPHEN 325 MG TABLET PO PRN ×2 (05:37→20:06)
[2018-10-24 07:20] LABS: MICROSCOPIC INDICATED
[2018-10-24 07:25] VITALS: BP 165/89
[2018-10-24] MEDS: OXYcodone/APAP 5/325MG TABLET PO PRN (09:25)
[2018-10-24] MEDS: TAMSULOSIN 0.4 MG CAP.ER.24H PO SCH (09:26)
[2018-10-24] MEDS: FERROUS GLUCONATE 324 MG TABLET PO SCH ×2 (09:26→16:59)
[2018-10-24] MEDS: CYANOCOBALAMIN 1,000 MCG TABLET PO SCH (09:26)
[2018-10-24] MEDS: ASPIRIN 81 MG TABLET EC PO SCH (09:26)
[2018-10-24] MEDS: ISOSORBIDE MONONITRATE ER 60 MG TABLET PO SCH (09:26)
[2018-10-24] MEDS: TICAGRELOR 90 MG TABLET PO SCH ×2 (09:26→20:06)
[2018-10-24] MEDS: BUPROPION SR 100 MG TABLET PO SCH ×2 (09:27→20:07)
[2018-10-24] MEDS: AMLODIPINE 10 MG TAB PO SCH (09:27)
[2018-10-24] MEDS: ENOXAPARIN 40 MG/0.4 ML SQ SCH (09:27)
[2018-10-24 13:10] LABS: ALANINE AMINOTRANSFERASE 30 U/L (12-78); ALBUMIN 3.6 g/dL (3.4-5.0); ANION GAP 6 mmol/L (5-15); CHLORIDE 106 mmol/L (98-107); CREATININE 0.88 mg/dL (0.7-1.3)
[2018-10-24 13:12] LABS: ALKALINE PHOSPHATASE 125 U/L (45-117); BILIRUBIN,TOTAL 0.4 mg/dL (0.2-1.0); TOTAL PROTEIN 7.4 g/dL (6.4-8.2)
[2018-10-24 13:17] LABS: BASOPHILS # (AUTO) 0.03 x10^3/uL (0-0.1); BASOPHILS % (AUTO) 0 % (0-1); EOSINOPHILS # (AUTO) 0.07 x10^3/uL (0-0.4); EOSINOPHILS % (AUTO) 1 % (1-7); LYMPHOCYTES # (AUTO) 0.95 x10^3/uL (1-3.4); LYMPHOCYTES % (AUTO) 13 % (22-44); MD NO; MEAN CORPUSCULAR HEMOGLOBIN 27.4 pg (27.5-34.5); MEAN CORPUSCULAR HGB CONC 32.9 g/dL (33.2-36.2); MEAN CORPUSCULAR VOLUME 83.4 fL (81-97); MEAN PLATELET VOLUME 8.4 fL (7.4-10.4); MONOCYTES # (AUTO) 0.48 x10^3/uL (0.2-0.8); MONOCYTES % (AUTO) 7 % (2-9); NEUTROPHILS # (AUTO) 5.58 x10^3/uL (1.8-6.8); NEUTROPHILS % (AUTO) 79 % (42-75); PLATELET COUNT 287 x10^3/uL (130-400); RED BLOOD COUNT 4.55 x10^6/uL (4.38-5.82); RED CELL DISTRIBUTION WIDTH 20.2 % (9.4-14.8)
[2018-10-24] MEDS: LIDODERM 5% PATCH TD SCH (13:30)
[2018-10-24 13:50] VITALS: BP 101/57
[2018-10-24 14:03] LABS: HEMOGLOBIN A1C 6.1 % (4.2-6.3)
[2018-10-24 18:55] VITALS: BP 135/79
[2018-10-24] MEDS: ATORVASTATIN 40 MG TABLET PO SCH (20:06)
[2018-10-25 02:48] VITALS: BP 166/85
[2018-10-25 05:38] VITALS: BP 188/103
[2018-10-25] MEDS: METOPROLOL TARTRATE 25 MG TABLET PO SCH ×2 (05:39→18:19)
[2018-10-25 07:15] VITALS: BP 177/94
[2018-10-25] MEDS: CYANOCOBALAMIN 1,000 MCG TABLET PO SCH (09:22)
[2018-10-25] MEDS: ISOSORBIDE MONONITRATE ER 60 MG TABLET PO SCH (09:22)
[2018-10-25] MEDS: FERROUS GLUCONATE 324 MG TABLET PO SCH ×2 (09:22→16:00)
[2018-10-25] MEDS: ACETAMINOPHEN 325 MG TABLET PO PRN (09:22)
[2018-10-25] MEDS: TAMSULOSIN 0.4 MG CAP.ER.24H PO SCH (09:23)
[2018-10-25] MEDS: TICAGRELOR 90 MG TABLET PO SCH ×2 (09:23→20:17)
[2018-10-25] MEDS: AMLODIPINE 10 MG TAB PO SCH (09:23)
[2018-10-25] MEDS: ASPIRIN 81 MG TABLET EC PO SCH (09:23)
[2018-10-25] MEDS: BUPROPION SR 100 MG TABLET PO SCH ×2 (09:23→20:17)
[2018-10-25] MEDS: ENOXAPARIN 40 MG/0.4 ML SQ SCH (09:24)
[2018-10-25] MEDS: LISINOPRIL 10 MG TABLET PO SCH (12:00)
[2018-10-25] MEDS: OXYcodone/APAP 5/325MG TABLET PO PRN (12:30)
[2018-10-25] MEDS: LIDODERM 5% PATCH TD SCH (12:35)
[2018-10-25 13:08] VITALS: BP 127/72
[2018-10-25] MEDS: KETOROLAC 30 MG/1 ML IVPush SCH ×2 (14:58→20:17)
[2018-10-25] MEDS ORDERED: LORazepam 2 MG/ML, 1ML IVPush ONE (16:00)
[2018-10-25 19:12] VITALS: BP 140/70
[2018-10-25] MEDS: ATORVASTATIN 40 MG TABLET PO SCH (20:17)
[2018-10-26 01:29] VITALS: BP 153/76
[2018-10-26] MEDS: KETOROLAC 30 MG/1 ML IVPush SCH ×4 (02:27→23:30)
[2018-10-26] MEDS: METOPROLOL TARTRATE 25 MG TABLET PO SCH ×2 (05:10→17:24)
[2018-10-26 07:10] VITALS: BP 158/79
[2018-10-26] MEDS ORDERED: ERGOCALCIFEROL 50,000 UNIT CAPSULE PO SCH (09:00)
[2018-10-26] MEDS: LISINOPRIL 10 MG TABLET PO SCH (09:00)
[2018-10-26] MEDS ORDERED: CHOLECALCIFEROL 400 UNITS TABLET PO SCH (09:00)
[2018-10-26] MEDS: BUPROPION SR 100 MG TABLET PO SCH ×2 (11:09→21:21)
[2018-10-26] MEDS: TAMSULOSIN 0.4 MG CAP.ER.24H PO SCH (11:09)
[2018-10-26] MEDS: CYANOCOBALAMIN 1,000 MCG TABLET PO SCH (11:09)
[2018-10-26] MEDS: ISOSORBIDE MONONITRATE ER 60 MG TABLET PO SCH (11:10)
[2018-10-26] MEDS: TICAGRELOR 90 MG TABLET PO SCH ×2 (11:10→21:21)
[2018-10-26] MEDS: AMLODIPINE 10 MG TAB PO SCH (11:10)
[2018-10-26] MEDS: ASPIRIN 81 MG TABLET EC PO SCH (11:10)
[2018-10-26] MEDS: FERROUS GLUCONATE 324 MG TABLET PO SCH ×2 (11:11→17:24)
[2018-10-26] MEDS: ENOXAPARIN 40 MG/0.4 ML SQ SCH (11:12)
[2018-10-26] MEDS: NS + 20MEQ KCL 1,000 ML IV SCH ×2 (11:12→21:20)
[2018-10-26 13:15] VITALS: BP 134/69
[2018-10-26] MEDS: LIDODERM 5% PATCH TD SCH (14:53)
[2018-10-26 19:12] VITALS: BP 124/64
[2018-10-26] MEDS: ATORVASTATIN 40 MG TABLET PO SCH (21:21)
[2018-10-26 21:52] VITALS: BP 155/76
[2018-10-27] MEDS: ACETAMINOPHEN 325 MG TABLET PO PRN ×2 (00:41→06:48)
[2018-10-27 03:38] VITALS: BP 161/77
[2018-10-27] MEDS: METOPROLOL TARTRATE 25 MG TABLET PO SCH ×2 (05:34→18:00)
[2018-10-27] MEDS: KETOROLAC 30 MG/1 ML IVPush SCH ×4 (05:34→22:58)
[2018-10-27] MEDS: NS + 20MEQ KCL 1,000 ML IV SCH ×2 (07:00→17:16)
[2018-10-27 07:15] VITALS: BP 164/78
[2018-10-27] MEDS: LISINOPRIL 10 MG TABLET PO SCH (09:00)
[2018-10-27] MEDS: CYANOCOBALAMIN 1,000 MCG TABLET PO SCH (09:56)
[2018-10-27] MEDS: TAMSULOSIN 0.4 MG CAP.ER.24H PO SCH (09:56)
[2018-10-27] MEDS: BUPROPION SR 100 MG TABLET PO SCH ×2 (09:56→21:13)
[2018-10-27] MEDS: AMLODIPINE 10 MG TAB PO SCH (09:56)
[2018-10-27] MEDS: FERROUS GLUCONATE 324 MG TABLET PO SCH ×2 (09:56→16:36)
[2018-10-27] MEDS: TICAGRELOR 90 MG TABLET PO SCH ×2 (09:56→21:13)
[2018-10-27] MEDS: ISOSORBIDE MONONITRATE ER 60 MG TABLET PO SCH (09:56)
[2018-10-27] MEDS: ASPIRIN 81 MG TABLET EC PO SCH (09:56)
[2018-10-27] MEDS ORDERED: POLYETHYLENE GLYCOL 17 GM PACKET PO ONE (10:00)
[2018-10-27] MEDS: ENOXAPARIN 40 MG/0.4 ML SQ SCH (10:06)
[2018-10-27 13:15] VITALS: BP 117/67
[2018-10-27] MEDS: LIDODERM 5% PATCH TD SCH (13:47)
[2018-10-27 19:45] VITALS: BP 164/80
[2018-10-27] MEDS: ATORVASTATIN 40 MG TABLET PO SCH (21:13)
[2018-10-28] MEDS: ACETAMINOPHEN 325 MG TABLET PO PRN (00:28)
[2018-10-28 02:25] VITALS: BP 160/80
[2018-10-28] MEDS: NS + 20MEQ KCL 1,000 ML IV SCH (03:26)
[2018-10-28] MEDS: KETOROLAC 30 MG/1 ML IVPush SCH ×4 (05:34→23:08)
[2018-10-28] MEDS: METOPROLOL TARTRATE 25 MG TABLET PO SCH ×2 (05:34→17:21)
[2018-10-28 06:48] VITALS: BP 152/87
[2018-10-28] MEDS: CYANOCOBALAMIN 1,000 MCG TABLET PO SCH (07:48)
[2018-10-28] MEDS: FERROUS GLUCONATE 324 MG TABLET PO SCH ×2 (07:48→17:20)
[2018-10-28] MEDS: AMLODIPINE 10 MG TAB PO SCH (07:48)
[2018-10-28] MEDS: TAMSULOSIN 0.4 MG CAP.ER.24H PO SCH (07:48)
[2018-10-28] MEDS: BUPROPION SR 100 MG TABLET PO SCH ×2 (07:49→21:58)
[2018-10-28] MEDS: ASPIRIN 81 MG TABLET EC PO SCH (07:49)
[2018-10-28] MEDS: TICAGRELOR 90 MG TABLET PO SCH ×2 (07:49→21:58)
[2018-10-28] MEDS: ENOXAPARIN 40 MG/0.4 ML SQ SCH (07:49)
[2018-10-28] MEDS: ISOSORBIDE MONONITRATE ER 60 MG TABLET PO SCH (07:49)
[2018-10-28] MEDS: LISINOPRIL 10 MG TABLET PO SCH (07:49)
[2018-10-28] MEDS: LIDODERM 5% PATCH TD SCH (12:59)
[2018-10-28 13:15] VITALS: BP 136/74
[2018-10-28 19:13] VITALS: BP 146/79
[2018-10-28] MEDS: ATORVASTATIN 40 MG TABLET PO SCH (21:58)
[2018-10-29] MEDS: ACETAMINOPHEN 325 MG TABLET PO PRN (01:33)
[2018-10-29 01:41] VITALS: BP 145/83
[2018-10-29] MEDS: KETOROLAC 30 MG/1 ML IVPush SCH ×4 (05:19→22:54)
[2018-10-29] MEDS: METOPROLOL TARTRATE 25 MG TABLET PO SCH ×2 (05:19→16:55)
[2018-10-29 06:51] VITALS: BP 153/85
[2018-10-29] MEDS: LISINOPRIL 10 MG TABLET PO SCH (07:51)
[2018-10-29] MEDS: ASPIRIN 81 MG TABLET EC PO SCH (07:51)
[2018-10-29] MEDS: BUPROPION SR 100 MG TABLET PO SCH ×2 (07:51→21:45)
[2018-10-29] MEDS: AMLODIPINE 10 MG TAB PO SCH (07:51)
[2018-10-29] MEDS: FERROUS GLUCONATE 324 MG TABLET PO SCH ×2 (07:51→16:55)
[2018-10-29] MEDS: CYANOCOBALAMIN 1,000 MCG TABLET PO SCH (07:51)
[2018-10-29] MEDS: ENOXAPARIN 40 MG/0.4 ML SQ SCH (07:51)
[2018-10-29] MEDS: TICAGRELOR 90 MG TABLET PO SCH ×2 (07:51→21:45)
[2018-10-29] MEDS: ISOSORBIDE MONONITRATE ER 60 MG TABLET PO SCH (07:51)
[2018-10-29] MEDS: TAMSULOSIN 0.4 MG CAP.ER.24H PO SCH (07:51)
[2018-10-29] MEDS: ONDANSETRON ODT 4 MG PO PRN (10:47)
[2018-10-29 10:51] VITALS: BP 114/70
[2018-10-29 14:00] VITALS: BP 99/64
[2018-10-29] MEDS: LIDODERM 5% PATCH TD SCH (14:27)
[2018-10-29 16:31] VITALS: BP_SYST 111; BP_SYST 122; BP_DIAS 66; BP_DIAS 74
[2018-10-29 19:24] VITALS: BP 130/73
[2018-10-29] MEDS: ATORVASTATIN 40 MG TABLET PO SCH (21:45)
[2018-10-30 02:07] VITALS: BP 137/78
[2018-10-30] MEDS: KETOROLAC 30 MG/1 ML IVPush SCH ×2 (05:00→11:15)
[2018-10-30] MEDS: METOPROLOL TARTRATE 25 MG TABLET PO SCH (05:57)
[2018-10-30 06:16] LABS: CREATININE 0.78 mg/dL (0.7-1.3)
[2018-10-30 07:49] VITALS: BP 150/76
[2018-10-30] MEDS: LISINOPRIL 10 MG TABLET PO SCH (09:00)
[2018-10-30] MEDS: AMLODIPINE 10 MG TAB PO SCH (11:15)
[2018-10-30] MEDS: ENOXAPARIN 40 MG/0.4 ML SQ SCH (11:15)
[2018-10-30] MEDS: FERROUS GLUCONATE 324 MG TABLET PO SCH (11:15)
[2018-10-30] MEDS: CYANOCOBALAMIN 1,000 MCG TABLET PO SCH (11:15)
[2018-10-30] MEDS: BUPROPION SR 100 MG TABLET PO SCH (11:15)
[2018-10-30] MEDS: ISOSORBIDE MONONITRATE ER 60 MG TABLET PO SCH (11:15)
[2018-10-30] MEDS: TAMSULOSIN 0.4 MG CAP.ER.24H PO SCH (11:15)
[2018-10-30] MEDS: TICAGRELOR 90 MG TABLET PO SCH (11:16)
[2018-10-30] MEDS: ASPIRIN 81 MG TABLET EC PO SCH (11:16)
[2018-10-30] MEDS ORDERED: ERGO500017 PO (12:39)
[2018-10-30] MEDS ORDERED: LIDO700A20 TD (12:40)
[2018-10-30] MEDS ORDERED: POLY17PO5 PO (12:48)
[2018-11-09] MEDS ORDERED: FERR324T8 PO (14:47)
[2018-11-13] MEDS ORDERED: ACET325T14 PO (11:16)
[2018-11-13] MEDS ORDERED: INSU100I11 SQ-INSULIN (11:16)
[2018-11-13] MEDS ORDERED: FERR324T8 PO (11:16)
[2018-11-13] MEDS ORDERED: CARV3.1212 PO (11:16)
[2018-11-13] MEDS ORDERED: LEVE500T53 PO (11:16)
== END 2018-10-30 14:10 | DRG 558 ==
LOC: ED 16:52 → INTOOBSV 19:19 → EDIP 19:19 → 3NE 20:07 → OBSVTOIN 10-23 12:05
PROVIDERS: ADMIT Internal Medicine; ATTEND Internal Medicine
DX: M70.62 Trochanteric bursitis, left hip (principal); G93.40 Encephalopathy, unspecified; S70.02XA Contusion of left hip, initial encounter; G89.11 Acute pain due to trauma; I10 Essential (primary) hypertension; F32.9 Major depressive disorder, single episode, unspecified; N40.1 Benign prostatic hyperplasia with lower urinary tract symptoms; R33.8 Other retention of urine; E55.9 Vitamin D deficiency, unspecified; E78.5 Hyperlipidemia, unspecified; I25.10 Atherosclerotic heart disease of native coronary artery without angina pectoris; I48.91 Unspecified atrial fibrillation; E11.65 Type 2 diabetes mellitus with hyperglycemia; R53.81 Other malaise; S00.81XA Abrasion of other part of head, initial encounter; T40.605A Adverse effect of unspecified narcotics, initial encounter; K59.03 Drug induced constipation; Y93.01 Activity, walking, marching and hiking; W01.0XXA Fall on same level from slipping, tripping and stumbling without subsequent striking against object, initial encounter; Z79.899 Other long term (current) drug therapy; Y99.8 Other external cause status; I25.2 Old myocardial infarction; Y92.481 Parking lot as the place of occurrence of the external cause; Z86.73 Personal history of transient ischemic attack (TIA), and cerebral infarction without residual deficits; Z87.11 Personal history of peptic ulcer disease; Z91.14 Patient's other noncompliance with medication regimen; Z95.5 Presence of coronary angioplasty implant and graft; Z90.49 Acquired absence of other specified parts of digestive tract
CPT/HCPCS: 36415; 70450; 70551; 80053; 81001; 81003; 82140; 82306; 82565; 82607; 83036; 85025; 99285; G0378; J1650; J1885; J2550; J3480; Q0162; J0360; J2060; J3490

== ENCOUNTER 2018-11-05 23:23 | Inpatient (IN) | payer MEDICARE ==
[~2018-11-05] VITALS: Ht 170.2 cm; Wt 66.8 kg
[~2018-11-05 23:23] MED LIST changes: +AMLO10TA6 PO; -AMLO10TA8 PO; +ERGO500017 PO; +LIDO700A20 TD; +POLY17PO5 PO
--- NOTE | 2018-11-05 23:36 | NUR ---
RAFAEL FROM [facility] FOR "LEFT FEMORAL HEAD FX". PT WAS SEEN HERE A FEW DAYS AGO FOR GLF, WAS SENT TO [facility] FOR REHAB, WHERE THEY XRAY'D PT AND FOUND LEFT FEMORAL HEAD FX. PEDAL PULSES INTACT. NO DEFORMITY, SHORTENING OR ROTATION. PT PLACED ON CONT. SPO2 AND BP MONITOR. PT DENIES NEED FOR PAIN MEDS ATT
[2018-11-06 00:40] LABS: ALBUMIN 3.5 g/dL (3.4-5.0); ANION GAP 8 mmol/L (5-15); CALCIUM 8.8 mg/dL (8.5-10.1); CHLORIDE 109 mmol/L (98-107); CREATININE 0.75 mg/dL (0.7-1.3)
--- NOTE | 2018-11-06 00:47 | NUR ---
PT IN XRAY
--- NOTE | 2018-11-06 01:13 | NUR ---
REPORT GIVEN TO FRANKY TONY
[2018-11-06] MEDS ORDERED: MORPHINE SULFATE 4 MG/ML, 1ML ONE (01:53)
--- NOTE | 2018-11-06 01:57 | NUR ---
PT REQUESTING PAIN MEDS. DR VALVERDE NOTIFIED. MEDICATED PT PER EMAR
[2018-11-06] MEDS ORDERED: MORPHINE SULFATE 4 MG/ML, 1ML IVPush ONE (02:00)
[2018-11-06 02:21] VITALS: BP 168/87
[2018-11-06 03:48] LABS: BASOPHILS # (AUTO) 0.05 x10^3/uL (0-0.1); BASOPHILS % (AUTO) 1 % (0-1); EOSINOPHILS # (AUTO) 0.13 x10^3/uL (0-0.4); EOSINOPHILS % (AUTO) 2 % (1-7); LYMPHOCYTES # (AUTO) 1.89 x10^3/uL (1-3.4); LYMPHOCYTES % (AUTO) 22 % (22-44); MEAN CORPUSCULAR HEMOGLOBIN 28.4 pg (27.5-34.5); MEAN CORPUSCULAR HGB CONC 33.5 g/dL (33.2-36.2); MEAN CORPUSCULAR VOLUME 84.7 fL (81-97); MEAN PLATELET VOLUME 9.3 fL (7.4-10.4); MONOCYTES # (AUTO) 0.55 x10^3/uL (0.2-0.8); MONOCYTES % (AUTO) 7 % (2-9); NEUTROPHILS # (AUTO) 5.89 x10^3/uL (1.8-6.8); NEUTROPHILS % (AUTO) 69 % (42-75); PLATELET COUNT 302 x10^3/uL (130-400); RED CELL DISTRIBUTION WIDTH 19.5 % (9.4-14.8)
[2018-11-06 03:50] LABS: MD NO
[2018-11-06] MEDS ORDERED: DOCUSATE 100 MG CAPSULE PO PRN (05:30)
[2018-11-06] MEDS ORDERED: ERGOCALCIFEROL 50,000 UNIT CAPSULE PO SCH (05:30)
[2018-11-06] MEDS ORDERED: POLYETHYLENE GLYCOL 17 GM PACKET PO PRN (05:30)
[2018-11-06] MEDS ORDERED: LIDODERM 5% PATCH TD PRN (05:30)
[2018-11-06] MEDS ORDERED: ONDANSETRON ODT 4 MG PO PRN (05:30)
[2018-11-06] MEDS ORDERED: ONDANSETRON 2MG/ML, 2ML IVPush PRN (05:30)
[2018-11-06] MEDS ORDERED: hydrALAzine 20 MG/ML, 1ML IVPush PRN (05:30)
[2018-11-06] MEDS ORDERED: ACETAMINOPHEN 500 MG TABLET PO PRN (05:30)
[2018-11-06] MEDS ORDERED: morphine SULFATE 10 MG/ML, 1ML IVPush PRN (05:30)
[2018-11-06] MEDS: SODIUM CHLORIDE 0.9% 1,000 ML IV SCH ×2 (05:39→14:14)
[2018-11-06] MEDS: METOPROLOL TARTRATE 25 MG TABLET PO SCH ×2 (05:39→18:10)
[2018-11-06] MEDS: HEPARIN 5,000 UNITS/ML, 1ML SQ SCH ×3 (05:40→21:28)
[2018-11-06 07:06] VITALS: BP 161/80
[2018-11-06] MEDS: GLIMEPIRIDE 1 MG TABLET PO SCH (07:52)
[2018-11-06] MEDS: ISOSORBIDE MONONITRATE ER 60 MG TABLET PO SCH (07:52)
[2018-11-06] MEDS: BUPROPION SR 100 MG TABLET PO SCH ×2 (07:52→20:01)
[2018-11-06] MEDS: LISINOPRIL 10 MG TABLET PO SCH (07:52)
[2018-11-06] MEDS: TICAGRELOR 90 MG TABLET PO SCH ×2 (07:52→20:01)
[2018-11-06] MEDS: TAMSULOSIN 0.4 MG CAP.ER.24H PO SCH (07:52)
[2018-11-06] MEDS: POLYETHYLENE GLYCOL 17 GM PACKET PO SCH (07:52)
[2018-11-06] MEDS: AMLODIPINE 10 MG TAB PO SCH (07:52)
[2018-11-06] MEDS: ASPIRIN 81 MG TABLET EC PO SCH (07:52)
[2018-11-06] MEDS: CYANOCOBALAMIN 1,000 MCG TABLET PO SCH (07:52)
[2018-11-06] MEDS: FERROUS GLUCONATE 324 MG TABLET PO SCH ×2 (07:52→17:00)
[2018-11-06 14:03] VITALS: BP 129/78
[2018-11-06] MEDS ORDERED: FENTANYL PF 250 MCG/5ML ONE (15:52)
[2018-11-06] MEDS ORDERED: ROCURONIUM 10MG/ML,5ML ONE (15:55)
[2018-11-06] MEDS ORDERED: SUCCINYLCHOLINE 20 MG/ML, 10ML ONE (15:55)
[2018-11-06] MEDS ORDERED: PROPOFOL 10 MG/ML, 20ML ONE (15:55)
[2018-11-06] MEDS ORDERED: ONDANSETRON 2MG/ML, 2ML ONE (16:01)
[2018-11-06] MEDS ORDERED: DEXAMETHASONE 4 MG/ML, 1ML ONE (16:01)
[2018-11-06] MEDS ORDERED: CEFAZOLIN 1,000 MG ONE (16:09)
[2018-11-06] MEDS ORDERED: PROMETHAZINE 12.5 MG SUPP PR PRN (16:30)
[2018-11-06] MEDS ORDERED: ACETAMINOPHEN 325 MG TABLET PO PRN (16:30)
[2018-11-06] MEDS ORDERED: ONDANSETRON ODT 8 MG PO PRN (16:30)
[2018-11-06] MEDS ORDERED: MEPERIDINE/PF 25MG/0.5ML IVPush PRN (16:30)
[2018-11-06] MEDS ORDERED: HALOPERIDOL 5 MG/ML IV PRN (16:30)
[2018-11-06] MEDS ORDERED: PROMETHAZINE 25 MG/ML, 1ML IV PRN (16:30)
[2018-11-06] MEDS ORDERED: EPHEDRINE 50 MG/ML, 1ML IVPush PRN (16:30)
[2018-11-06] MEDS ORDERED: MORPHINE SULFATE 4 MG/ML, 1ML IVPush PRN (16:30)
[2018-11-06] MEDS ORDERED: DIAZEPAM 5 MG/ML, 2ML IVPush PRN (16:30)
[2018-11-06] MEDS ORDERED: MIDAZOLAM 1 MG/ML, 2ML IV PRN (16:30)
[2018-11-06] MEDS ORDERED: OXYcodone 5 MG/5 ML ORAL.SOL UDC PO PRN (16:30)
[2018-11-06] MEDS ORDERED: hydrALAzine 20 MG/ML, 1ML IV PRN (16:30)
[2018-11-06] MEDS ORDERED: ONDANSETRON 2MG/ML, 2ML IV PRN (16:30)
[2018-11-06] MEDS ORDERED: HYDROmorphone 2 MG/ML, 1ML IVPush PRN (16:30)
[2018-11-06] MEDS ORDERED: ALBUTEROL SULFATE 2.5 MG/3 ML NPPB PRN (16:30)
[2018-11-06] MEDS ORDERED: LABETALOL 5MG/ML, 20ML IV PRN (16:30)
[2018-11-06] MEDS ORDERED: OXYcodone 5 MG/5 ML ORAL.SOL UDC ONE (17:05)
[2018-11-06] MEDS ORDERED: FENTANYL PF 100 MCG/2ML ONE (17:05)
[2018-11-06] MEDS: FENTANYL PF 100 MCG/2ML IV PRN ×2 (17:06→17:20)
[2018-11-06 18:07] VITALS: BP 147/75
[2018-11-06] MEDS: CEFAZOLIN PMX 1GM/50ML 50 ML IVPB SCH (20:02)
[2018-11-06] MEDS ORDERED: ATORVASTATIN 40 MG TABLET PO SCH (21:00)
[2018-11-06 23:37] VITALS: BP 123/71
[2018-11-07 03:11] VITALS: BP 131/67
[2018-11-07] MEDS: SODIUM CHLORIDE 0.9% 1,000 ML IV SCH ×2 (03:11→13:00)
[2018-11-07] MEDS: CEFAZOLIN PMX 1GM/50ML 50 ML IVPB SCH ×2 (04:16→11:31)
[2018-11-07 04:46] LABS: BASOPHILS % (AUTO) 0 % (0-1); EOSINOPHILS % (AUTO) 0 % (1-7); LYMPHOCYTES # (AUTO) 0.54 x10^3/uL (1-3.4); LYMPHOCYTES % (AUTO) 7 % (22-44); MD NO; MEAN CORPUSCULAR HEMOGLOBIN 28.6 pg (27.5-34.5); MEAN CORPUSCULAR HGB CONC 33.4 g/dL (33.2-36.2); MEAN CORPUSCULAR VOLUME 85.5 fL (81-97); MEAN PLATELET VOLUME 8.8 fL (7.4-10.4); MONOCYTES # (AUTO) 0.21 x10^3/uL (0.2-0.8); MONOCYTES % (AUTO) 3 % (2-9); NEUTROPHILS # (AUTO) 7.43 x10^3/uL (1.8-6.8); NEUTROPHILS % (AUTO) 91 % (42-75); PLATELET COUNT 244 x10^3/uL (130-400); RED BLOOD COUNT 4.01 x10^6/uL (4.38-5.82)
[2018-11-07 04:57] LABS: ANION GAP 8 mmol/L (5-15); CALCIUM 8.6 mg/dL (8.5-10.1); CHLORIDE 109 mmol/L (98-107)
[2018-11-07 04:58] LABS: CREATININE 0.74 mg/dL (0.7-1.3)
[2018-11-07] MEDS: METOPROLOL TARTRATE 25 MG TABLET PO SCH (06:00)
[2018-11-07] MEDS: HEPARIN 5,000 UNITS/ML, 1ML SQ SCH ×2 (06:01→13:06)
[2018-11-07] MEDS: GLIMEPIRIDE 1 MG TABLET PO SCH (08:09)
[2018-11-07] MEDS: ASPIRIN 81 MG TABLET EC PO SCH (08:09)
[2018-11-07] MEDS: POLYETHYLENE GLYCOL 17 GM PACKET PO SCH (08:09)
[2018-11-07] MEDS: TICAGRELOR 90 MG TABLET PO SCH (08:10)
[2018-11-07] MEDS: CYANOCOBALAMIN 1,000 MCG TABLET PO SCH (08:10)
[2018-11-07] MEDS: BUPROPION SR 100 MG TABLET PO SCH (08:10)
[2018-11-07] MEDS: AMLODIPINE 10 MG TAB PO SCH (08:10)
[2018-11-07] MEDS: LISINOPRIL 10 MG TABLET PO SCH (08:10)
[2018-11-07] MEDS: FERROUS GLUCONATE 324 MG TABLET PO SCH (08:10)
[2018-11-07] MEDS: TAMSULOSIN 0.4 MG CAP.ER.24H PO SCH (08:10)
[2018-11-07] MEDS: ISOSORBIDE MONONITRATE ER 60 MG TABLET PO SCH (08:11)
[2018-11-07 09:07] VITALS: BP 111/60
[2018-11-07] MEDS ORDERED: TRAM-47 PO (11:48)
[2018-11-07] MEDS ORDERED: ENOX40SY4 SQ (11:48)
[2018-11-07 12:38] VITALS: BP 119/57
[2018-11-09] MEDS ORDERED: FERR324T8 PO (14:47)
== END 2018-11-07 14:45 | DRG 481 ==
LOC: ED 23:59 → EDIP 11-06 01:34 → 4NOR 11-06 02:16
PROVIDERS: ADMIT Hospitalist; ATTEND Hospitalist
PROC: 0QS736Z Reposition Left Upper Femur with Intramedullary Internal Fixation Device, Percutaneous Approach (ICD-10-PCS; principal; 2018-11-06 17:00)
DX: S72.032A Displaced midcervical fracture of left femur, initial encounter for closed fracture (principal); I13.0 Hypertensive heart and chronic kidney disease with heart failure and stage 1 through stage 4 chronic kidney disease, or unspecified chronic kidney disease; E11.9 Type 2 diabetes mellitus without complications; E78.5 Hyperlipidemia, unspecified; I25.10 Atherosclerotic heart disease of native coronary artery without angina pectoris; I25.2 Old myocardial infarction; I48.91 Unspecified atrial fibrillation; I50.9 Heart failure, unspecified; L40.50 Arthropathic psoriasis, unspecified; N40.0 Benign prostatic hyperplasia without lower urinary tract symptoms; W18.39XA Other fall on same level, initial encounter; Y93.89 Activity, other specified; Y92.89 Other specified places as the place of occurrence of the external cause; Y99.8 Other external cause status; Z87.11 Personal history of peptic ulcer disease; Z86.73 Personal history of transient ischemic attack (TIA), and cerebral infarction without residual deficits; Z90.49 Acquired absence of other specified parts of digestive tract; Z88.8 Allergy status to other drugs, medicaments and biological substances; E11.22 Type 2 diabetes mellitus with diabetic chronic kidney disease; N18.9 Chronic kidney disease, unspecified
CPT/HCPCS: 36415; 71045; 76000; 80048; 82040; 82962; 83735; 84100; 85025; 93005; C1713; G0378; J0690; J1100; J1644; J2405; J2704; J3010; J0330; J7030

== ENCOUNTER 2018-11-14 13:16 | Emergency (ER) | payer MEDICARE ==
[~2018-11-14] VITALS: Ht 170.2 cm; Wt 68.2 kg
[~2018-11-14 13:16] MED LIST changes: -AMLO10TA6 PO; +AMLO10TA8 PO; +CARV3.1212 PO; +ENOX40SY4 SQ; +FERR324T8 PO; +LEVE500T53 PO; +TRAM-47 PO
--- NOTE | 2018-11-14 13:33 | NUR ---
BIB [facility] FOR C/O BEING UNRESPONSIVE AT [facility]. PT WAS TAKEN BACK TO ROOM AND BECAME RESPONSIVE BUT DOES NOT REMEMBER EPISODE OF UNRESPONSIVENESS. AOX3 AT THIS TIME. WAS DC'D FROM [facility] 11/13/17 FOR SIMILAR EVENT. 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 VS [place] EXPERT BP 127/79, HR NSR 99, 97% RA, BG 220. MONITORS APPLIED. EKG COMPLETED. PT RESTING ON GURNEY. NADN. PT AOX4 AT THIS TIME. WARM BLANKET PROVIDED.
--- NOTE | 2018-11-14 14:11 | NUR ---
PT RESTING ON GURNEY. NADN. ARTEAGA.
[2018-11-14 14:24] LABS: MEAN CORPUSCULAR HEMOGLOBIN 28.9 pg (27.5-34.5); MEAN CORPUSCULAR HGB CONC 33.5 g/dL (33.2-36.2); MEAN CORPUSCULAR VOLUME 86.3 fL (81-97); MEAN PLATELET VOLUME 8.5 fL (7.4-10.4); PLATELET COUNT 283 x10^3/uL (130-400); RED BLOOD COUNT 4.17 x10^6/uL (4.38-5.82); RED CELL DISTRIBUTION WIDTH 17.8 % (9.4-14.8)
[2018-11-14] MEDS ORDERED: SODIUM CHLORIDE FLUSH 10ML SYR IVF ONE (14:30)
[2018-11-14 14:36] LABS: ALBUMIN 3.1 g/dL (3.4-5.0); ANION GAP 7 mmol/L (5-15); CHLORIDE 107 mmol/L (98-107); CREATININE 0.86 mg/dL (0.7-1.3)
[2018-11-14 14:39] LABS: TROPONIN I < 0.015 ng/mL (0.000-0.045)
[2018-11-14 15:03] LABS: MD YES
--- NOTE | 2018-11-14 15:03 | NUR ---
PT RESTING ON GURNEY. NADN. ARTEAGA.
[2018-11-14 15:06] LABS: EOS#(MANUAL) 0.09 x10^3/uL (0.0-0.4); EOS% (MANUAL) 1 % (1-7); LYMPH#(MANUAL) 0.28 x10^3/uL (1-3.4); LYMPHS% (MANUAL) 3 % (22-44); MONOS#(MANUAL) 0.75 x10^3/uL (0.3-2.7); MONOS% (MANUAL) 8 % (2-9); SEG#(MANUAL) 8.27 x10^3/uL (1.8-6.8); SEGS% (MANUAL) 88 % (42-75)
[2018-11-14 15:10] LABS: <PLATELET ESTIMATE> ADEQUATE; <PLT MORPHOLOGY> NORMAL PLT MORPH; ANISOCYTOSIS 1+; POLYCHROMASIA 1+
[2018-11-14 16:24] VITALS: BP 126/59
--- NOTE | 2018-11-14 16:24 | NUR ---
PT RESTING ON GURNEY. NADN. ARTEAGA. PT CHART REVIEWED AND PLACED FOR RECHECK.
--- NOTE | 2018-11-14 17:35 | NUR ---
REPORT GIVEN TO FRANKY CHAMORRO AT [facility]. ALL QUESTIONS ANSWERED. COBRA SHEET SIGNED BY ALL PARTIES. COPIES SENT W/ CHART. ORIGINALS WITH [facility] CHART COPIES. PT DC'D W/ [employer].
== END 2018-11-14 17:36 | disposition home or self-care (01) ==
LOC: ED 14:48
DX: R55 Syncope and collapse (principal); I10 Essential (primary) hypertension; E11.9 Type 2 diabetes mellitus without complications; Z86.73 Personal history of transient ischemic attack (TIA), and cerebral infarction without residual deficits; Z87.11 Personal history of peptic ulcer disease; Z86.19 Personal history of other infectious and parasitic diseases; I25.2 Old myocardial infarction; I25.10 Atherosclerotic heart disease of native coronary artery without angina pectoris; I48.91 Unspecified atrial fibrillation
CPT/HCPCS: 36415; 70450; 71045; 80048; 82040; 84484; 85025; 93005; 99284

== ENCOUNTER 2020-03-08 15:45 | Emergency (ER) | payer MEDICARE ==
[~2020-03-08] VITALS: Ht 170.2 cm; Wt 61.8 kg
[~2020-03-08 15:45] MED LIST changes: +CYAN-27 PO; -CYAN10005 PO; -DULO20CA17 PO; +DULO20CA18 PO; -GLIM1TAB2 PO; +GLIM1TAB7 PO; -HYDR50TA13 PO; +HYDR50TA99 PO; -MIRT15TA6 PO; +MIRT15TA94 PO; +SENN-177 PO; -SENN1TAB8 PO; -SUCR1ORA11 PO; +SUCR1ORA14 PO
[2020-03-08] MEDS ORDERED: SODIUM CHLORIDE 0.9% 1,000ML IVBOLUS ONE (16:00)
[2020-03-08 16:17] LABS: PH, VENOUS 7.401 pH (7.320-7.420)
--- NOTE | 2020-03-08 16:20 | NUR ---
SITTER AT BEDSIDE
[2020-03-08 16:26] LABS: BASOPHILS # (AUTO) 0.02 x10^3/uL (0-0.1); BASOPHILS % (AUTO) 0 % (0-1); EOSINOPHILS # (AUTO) 0.04 x10^3/uL (0-0.4); EOSINOPHILS % (AUTO) 1 % (1-7); LYMPHOCYTES # (AUTO) 1.21 x10^3/uL (1-3.4); LYMPHOCYTES % (AUTO) 15 % (22-44); MD NO; MEAN CORPUSCULAR HEMOGLOBIN 29.1 pg (27.5-34.5); MEAN CORPUSCULAR HGB CONC 33.5 g/dL (33.2-36.2); MEAN CORPUSCULAR VOLUME 86.8 fL (81-97); MEAN PLATELET VOLUME 8.2 fL (7.4-10.4); MONOCYTES # (AUTO) 0.57 x10^3/uL (0.2-0.8); MONOCYTES % (AUTO) 7 % (2-9); NEUTROPHILS # (AUTO) 6.28 x10^3/uL (1.8-6.8); NEUTROPHILS % (AUTO) 77 % (42-75); PLATELET COUNT 280 x10^3/uL (130-400); RED CELL DISTRIBUTION WIDTH 13.1 % (9.4-14.8)
[2020-03-08 16:29] LABS: ALBUMIN 3.4 g/dL (3.4-5.0); ANION GAP 7 mmol/L (5-15); CHLORIDE 103 mmol/L (98-107)
[2020-03-08 16:30] LABS: SALICYLATE LEVEL < 1.7 mg/dL (2.8-20.0)
--- NOTE | 2020-03-08 16:31 | NUR ---
RANDY ARANDA AT BEDSIDE FOR EVALUATION
[2020-03-08 16:38] LABS: ALANINE AMINOTRANSFERASE 90 U/L (12-78); ALKALINE PHOSPHATASE 220 U/L (45-117); BILIRUBIN,TOTAL 0.3 mg/dL (0.2-1.0); CREATININE 1.05 mg/dL (0.7-1.3); T4 (THYROXINE) 9.4 mcg/dL (4.5-12.1); TOTAL PROTEIN 7.8 g/dL (6.4-8.2)
[2020-03-08 16:40] LABS: AMPHETAMINE SCREEN, URINE Negative (Negative); BARBITURATE SCREEN, URINE Negative (Negative); BENZODIAZEPINE SCREEN, URINE Negative (Negative); CANNABINOID SCREEN, URINE Negative (Negative); COCAINE SCREEN, URINE Negative (Negative); METHADONE SCREEN, URINE Negative (Negative); OPIATE SCREEN, URINE Negative (Negative)
[2020-03-08 16:47] LABS: ACETONE, SERUM Negative (Negative)
[2020-03-08] MEDS ORDERED: INSULIN REGULAR 100 UNITS/ML, 3ML VIAL SQ-INSULIN SCH (17:00)
--- NOTE | 2020-03-08 17:02 | NUR ---
3X ATTEMPTS TO START IV UNSUCCESSFUL, PT VERY ANXIOUS AND KEEPS PULLING ARM AWAY. PT TO BE MOVED TO ED2 WITH SITTER FOR LEGAL HOLD ROOM. PECAN SHELLER FRANECS TO START IV WHEN PT MOVED. REPORT TO CHERIE WILKINS.
--- NOTE | 2020-03-08 17:07 | NUR ---
REPORT RECEIVED FROM FRANKY BERRY. THIS RN TO ASSUME CARE. PT LAYING IN BED, NO SIGNS OF DISTRESS. IN VIEW OF THE SITTER. WILL CONTINUE TO MONITOR.
[2020-03-08 17:45] VITALS: BP 167/86
--- NOTE | 2020-03-08 18:09 | NUR ---
PT LAYING IN BED, NO SIGNS OF DISTRESS, IN VIEW OF THE SITTER. WILL CONTINUE TO MONITOR. DIET TRAY ORDERED.
[2020-03-08] MEDS ORDERED: INSULIN SINGLE DOSE, ER ONE (18:45)
--- NOTE | 2020-03-08 19:14 | NUR ---
REPORT GIVEN TO FRANKY CARTER. PT LAYING IN BED, AWAKE AND CALM.
--- NOTE | 2020-03-08 19:59 | NUR ---
REPORT TO FRANKY SALMERON
[2020-03-09] MEDS ORDERED: AMLO10TA8 PO (02:52)
== END 2020-03-08 20:45 | disposition other institution (70) ==
LOC: ED 17:11
DX: F33.9 Major depressive disorder, recurrent, unspecified (principal); R45.851 Suicidal ideations; E11.65 Type 2 diabetes mellitus with hyperglycemia; I11.9 Hypertensive heart disease without heart failure; I25.10 Atherosclerotic heart disease of native coronary artery without angina pectoris; I48.91 Unspecified atrial fibrillation; G43.909 Migraine, unspecified, not intractable, without status migrainosus; I25.2 Old myocardial infarction; Z86.73 Personal history of transient ischemic attack (TIA), and cerebral infarction without residual deficits; Z90.49 Acquired absence of other specified parts of digestive tract; Z98.61 Coronary angioplasty status
CPT/HCPCS: 36415; 80053; 80307; 82010; 82803; 82962; 84436; 84443; 85025; 96360; 96361; 96372; 99284; J1815; J7030

== ENCOUNTER 2020-03-08 18:55 | Inpatient (IN) | payer MEDICARE ==
[~2020-03-08] VITALS: Ht 170.2 cm; Wt 60.1 kg
[~2020-03-08 18:55] MED LIST changes: -ASCO500T6 PO; +ASCO500T9 PO
[2020-03-08] MEDS ORDERED: POLYETHYLENE GLYCOL 17 GM PACKET PO PRN (21:00)
[2020-03-08] MEDS ORDERED: ONDANSETRON ODT 4 MG PO PRN (21:00)
[2020-03-08] MEDS ORDERED: DOCUSATE 100 MG CAPSULE PO PRN (21:00)
[2020-03-08] MEDS ORDERED: BISACODYL 10 MG SUPP PR PRN (21:00)
[2020-03-08 21:02] LABS: MICROSCOPIC AUTO
[2020-03-08 22:00] VITALS: BP 154/88
[2020-03-08 22:02] LABS: CHOL/HDL RATIO 2.7; LDL/HDL RATIO 1.2 (0.5-3.0)
[2020-03-09] MEDS ORDERED: AMLO10TA8 PO (02:52)
[2020-03-09 07:40] VITALS: BP 164/82
[2020-03-09] MEDS: ACETAMINOPHEN 325 MG TABLET PO PRN (10:49)
[2020-03-09] MEDS ORDERED: CEFTRIAXONE PMX 1GM/50ML 50 ML IV SCH (11:30)
[2020-03-09] MEDS ORDERED: GLUCAGON 1 MG IM PRN (11:30)
[2020-03-09] MEDS ORDERED: DEXTROSE 4 GM TAB.CHEW PO PRN (11:30)
[2020-03-09] MEDS ORDERED: DEXTROSE 50%, 50ML SYRINGE IVPush PRN (11:30)
[2020-03-09] MEDS: SERTRALINE 50MG TABLET PO SCH (12:43)
[2020-03-09] MEDS: INSULIN LISPRO 100 UNITS/ML, PEN SQ-INSULIN SCH ×2 (16:39→21:13)
[2020-03-09 19:15] VITALS: BP 168/78
[2020-03-09] MEDS: MIRTAZAPINE 15 MG TABLET PO SCH (21:09)
[2020-03-09] MEDS: TICAGRELOR 90 MG TABLET PO SCH (21:10)
[2020-03-09] MEDS: LEVETIRACETAM 500 MG TABLET PO SCH (21:10)
[2020-03-09] MEDS: SODIUM CHLORIDE FLUSH 10ML SYR IVF SCH (21:11)
[2020-03-09] MEDS: INSULIN GLARGINE 100 UNITS/ML, PEN SQ-INSULIN SCH (21:13)
[2020-03-10 06:33] LABS: BASOPHILS # (AUTO) 0.03 x10^3/uL (0-0.1); BASOPHILS % (AUTO) 0 % (0-1); EOSINOPHILS # (AUTO) 0.05 x10^3/uL (0-0.4); EOSINOPHILS % (AUTO) 1 % (1-7); LYMPHOCYTES # (AUTO) 1.63 x10^3/uL (1-3.4); LYMPHOCYTES % (AUTO) 22 % (22-44); MD NO; MEAN CORPUSCULAR HEMOGLOBIN 29.3 pg (27.5-34.5); MEAN CORPUSCULAR HGB CONC 33.5 g/dL (33.2-36.2); MEAN CORPUSCULAR VOLUME 87.4 fL (81-97); MEAN PLATELET VOLUME 7.7 fL (7.4-10.4); MONOCYTES # (AUTO) 0.59 x10^3/uL (0.2-0.8); MONOCYTES % (AUTO) 8 % (2-9); NEUTROPHILS # (AUTO) 5.31 x10^3/uL (1.8-6.8); NEUTROPHILS % (AUTO) 70 % (42-75); PLATELET COUNT 254 x10^3/uL (130-400); RED BLOOD COUNT 5.08 x10^6/uL (4.38-5.82); RED CELL DISTRIBUTION WIDTH 13.1 % (9.4-14.8)
[2020-03-10 07:00] VITALS: BP 174/93
[2020-03-10 07:08] LABS: ALBUMIN 3.1 g/dL (3.4-5.0); ANION GAP 9 mmol/L (5-15); CHLORIDE 109 mmol/L (98-107)
[2020-03-10 07:11] LABS: ALANINE AMINOTRANSFERASE 54 U/L (12-78); ALKALINE PHOSPHATASE 187 U/L (45-117); BILIRUBIN,TOTAL 0.7 mg/dL (0.2-1.0); CREATININE 0.63 mg/dL (0.7-1.3); TOTAL PROTEIN 7.5 g/dL (6.4-8.2)
[2020-03-10] MEDS ORDERED: POTASSIUM CHLORIDE 20 MEQ TAB.ER.PRT PO ONE (07:30)
[2020-03-10] MEDS: ASPIRIN 81 MG TABLET EC PO SCH (08:06)
[2020-03-10] MEDS: AMLODIPINE 10 MG TAB PO SCH (08:08)
[2020-03-10] MEDS: LEVETIRACETAM 500 MG TABLET PO SCH ×2 (08:08→20:23)
[2020-03-10] MEDS: LISINOPRIL 10 MG TABLET PO SCH (08:09)
[2020-03-10] MEDS: TICAGRELOR 90 MG TABLET PO SCH ×2 (08:15→20:23)
[2020-03-10] MEDS: INSULIN LISPRO 100 UNITS/ML, PEN SQ-INSULIN SCH ×4 (08:20→20:26)
[2020-03-10] MEDS: SERTRALINE 50MG TABLET PO SCH (08:27)
[2020-03-10] MEDS: TAMSULOSIN 0.4 MG CAP.ER.24H PO SCH (08:27)
[2020-03-10] MEDS: INSULIN GLARGINE 100 UNITS/ML, PEN SQ-INSULIN SCH ×2 (08:39→20:33)
[2020-03-10] MEDS: SODIUM CHLORIDE FLUSH 10ML SYR IVF SCH ×2 (08:40→20:24)
[2020-03-10] MEDS: CEFTRIAXONE PMX 1GM/50ML 50 ML IV SCH (14:43)
[2020-03-10 19:15] VITALS: BP 142/78
[2020-03-10] MEDS: MIRTAZAPINE 15 MG TABLET PO SCH (20:23)
[2020-03-11 07:15] VITALS: BP 152/82
[2020-03-11] MEDS: INSULIN LISPRO 100 UNITS/ML, PEN SQ-INSULIN SCH ×4 (07:58→20:33)
[2020-03-11] MEDS: AMLODIPINE 10 MG TAB PO SCH (09:08)
[2020-03-11] MEDS: SERTRALINE 50MG TABLET PO SCH (09:08)
[2020-03-11] MEDS: LISINOPRIL 10 MG TABLET PO SCH (09:08)
[2020-03-11] MEDS: TICAGRELOR 90 MG TABLET PO SCH ×2 (09:08→20:36)
[2020-03-11] MEDS: ASPIRIN 81 MG TABLET EC PO SCH (09:08)
[2020-03-11] MEDS: LEVETIRACETAM 500 MG TABLET PO SCH ×2 (09:08→20:35)
[2020-03-11] MEDS: TAMSULOSIN 0.4 MG CAP.ER.24H PO SCH (09:08)
[2020-03-11 09:10] LABS: ANION GAP 8 mmol/L (5-15); CALCIUM 9.2 mg/dL (8.5-10.1); CHLORIDE 110 mmol/L (98-107); CREATININE 0.87 mg/dL (0.7-1.3)
[2020-03-11] MEDS: INSULIN GLARGINE 100 UNITS/ML, PEN SQ-INSULIN SCH ×2 (09:19→20:33)
[2020-03-11] MEDS: SODIUM CHLORIDE FLUSH 10ML SYR IVF SCH ×2 (09:21→20:39)
[2020-03-11] MEDS: CEFTRIAXONE PMX 1GM/50ML 50 ML IV SCH (15:02)
[2020-03-11 19:49] VITALS: BP 122/48
[2020-03-11] MEDS: MIRTAZAPINE 15 MG TABLET PO SCH (20:36)
[2020-03-12] MEDS: INSULIN LISPRO 100 UNITS/ML, PEN SQ-INSULIN SCH ×4 (07:00→20:33)
[2020-03-12 07:18] VITALS: BP 131/76
[2020-03-12] MEDS: TICAGRELOR 90 MG TABLET PO SCH ×2 (08:46→20:31)
[2020-03-12] MEDS: LEVETIRACETAM 500 MG TABLET PO SCH ×2 (08:46→20:31)
[2020-03-12] MEDS: SERTRALINE 50MG TABLET PO SCH (08:46)
[2020-03-12] MEDS: LISINOPRIL 10 MG TABLET PO SCH (08:46)
[2020-03-12] MEDS: TAMSULOSIN 0.4 MG CAP.ER.24H PO SCH (08:46)
[2020-03-12] MEDS: AMLODIPINE 10 MG TAB PO SCH (08:47)
[2020-03-12] MEDS: INSULIN GLARGINE 100 UNITS/ML, PEN SQ-INSULIN SCH ×2 (08:47→20:33)
[2020-03-12] MEDS: ASPIRIN 81 MG TABLET EC PO SCH (08:47)
[2020-03-12] MEDS: ACETAMINOPHEN 325 MG TABLET PO PRN (08:48)
[2020-03-12] MEDS: SODIUM CHLORIDE FLUSH 10ML SYR IVF SCH ×2 (08:51→20:50)
[2020-03-12] MEDS: CEFTRIAXONE PMX 1GM/50ML 50 ML IV SCH (14:53)
[2020-03-12 19:20] VITALS: BP 136/75
[2020-03-12] MEDS: MIRTAZAPINE 15 MG TABLET PO SCH (20:31)
[2020-03-13] MEDS: INSULIN LISPRO 100 UNITS/ML, PEN SQ-INSULIN SCH ×4 (07:30→21:05)
[2020-03-13 07:31] VITALS: BP 147/80
[2020-03-13] MEDS: SODIUM CHLORIDE FLUSH 10ML SYR IVF SCH ×2 (09:00→21:30)
[2020-03-13] MEDS: LEVETIRACETAM 500 MG TABLET PO SCH ×2 (09:16→21:02)
[2020-03-13] MEDS: ASPIRIN 81 MG TABLET EC PO SCH (09:16)
[2020-03-13] MEDS: TICAGRELOR 90 MG TABLET PO SCH ×2 (09:17→21:03)
[2020-03-13] MEDS: AMLODIPINE 10 MG TAB PO SCH (09:17)
[2020-03-13] MEDS: SERTRALINE 100MG TABLET PO SCH (09:17)
[2020-03-13] MEDS: TAMSULOSIN 0.4 MG CAP.ER.24H PO SCH (09:17)
[2020-03-13] MEDS: INSULIN GLARGINE 100 UNITS/ML, PEN SQ-INSULIN SCH ×2 (09:36→21:04)
[2020-03-13] MEDS: LISINOPRIL 10 MG TABLET PO SCH (13:01)
[2020-03-13] MEDS: CEFTRIAXONE PMX 1GM/50ML 50 ML IV SCH (15:21)
[2020-03-13 19:32] VITALS: BP 147/74
[2020-03-13] MEDS: MIRTAZAPINE 15 MG TABLET PO SCH (21:02)
[2020-03-13 23:04] LABS: MICROSCOPIC NOT IND
[2020-03-14] MEDS: INSULIN LISPRO 100 UNITS/ML, PEN SQ-INSULIN SCH ×4 (06:30→20:14)
[2020-03-14 07:25] VITALS: BP 136/79
[2020-03-14] MEDS: SODIUM CHLORIDE FLUSH 10ML SYR IVF SCH (09:17)
[2020-03-14] MEDS: TICAGRELOR 90 MG TABLET PO SCH ×2 (09:17→20:12)
[2020-03-14] MEDS: ASPIRIN 81 MG TABLET EC PO SCH (09:17)
[2020-03-14] MEDS: AMLODIPINE 10 MG TAB PO SCH (09:18)
[2020-03-14] MEDS: SERTRALINE 100MG TABLET PO SCH (09:18)
[2020-03-14] MEDS: LISINOPRIL 10 MG TABLET PO SCH (09:18)
[2020-03-14] MEDS: TAMSULOSIN 0.4 MG CAP.ER.24H PO SCH (09:18)
[2020-03-14] MEDS: LEVETIRACETAM 500 MG TABLET PO SCH ×2 (09:18→20:12)
[2020-03-14] MEDS: INSULIN GLARGINE 100 UNITS/ML, PEN SQ-INSULIN SCH ×2 (09:19→20:13)
[2020-03-14] MEDS: CEFDINIR 300 MG CAPSULE PO SCH ×2 (11:00→20:12)
[2020-03-14] MEDS ORDERED: CEFTRIAXONE PMX 1GM/50ML 50 ML IV SCH (14:00)
[2020-03-14 19:54] VITALS: BP 119/67
[2020-03-14] MEDS: MIRTAZAPINE 15 MG TABLET PO SCH (20:12)
[2020-03-15] MEDS: INSULIN LISPRO 100 UNITS/ML, PEN SQ-INSULIN SCH ×4 (06:19→20:51)
[2020-03-15 07:20] VITALS: BP 127/76
[2020-03-15] MEDS: ASPIRIN 81 MG TABLET EC PO SCH (09:00)
[2020-03-15] MEDS: CEFDINIR 300 MG CAPSULE PO SCH ×2 (09:00→20:47)
[2020-03-15] MEDS: TICAGRELOR 90 MG TABLET PO SCH ×2 (09:21→20:47)
[2020-03-15] MEDS: TAMSULOSIN 0.4 MG CAP.ER.24H PO SCH (09:22)
[2020-03-15] MEDS: AMLODIPINE 10 MG TAB PO SCH (09:22)
[2020-03-15] MEDS: LEVETIRACETAM 500 MG TABLET PO SCH ×2 (09:22→20:47)
[2020-03-15] MEDS: LISINOPRIL 10 MG TABLET PO SCH (09:23)
[2020-03-15] MEDS: SERTRALINE 100MG TABLET PO SCH (09:23)
[2020-03-15] MEDS: INSULIN GLARGINE 100 UNITS/ML, PEN SQ-INSULIN SCH ×2 (09:24→20:50)
[2020-03-15 19:52] VITALS: BP 134/75
[2020-03-15] MEDS: MIRTAZAPINE 15 MG TABLET PO SCH (20:47)
[2020-03-16] MEDS: INSULIN LISPRO 100 UNITS/ML, PEN SQ-INSULIN SCH ×4 (07:00→21:14)
[2020-03-16 07:36] VITALS: BP 111/68
[2020-03-16] MEDS: LISINOPRIL 10 MG TABLET PO SCH (08:31)
[2020-03-16] MEDS: SERTRALINE 100MG TABLET PO SCH (08:31)
[2020-03-16] MEDS: TICAGRELOR 90 MG TABLET PO SCH ×2 (08:31→21:14)
[2020-03-16] MEDS: LEVETIRACETAM 500 MG TABLET PO SCH ×2 (08:32→21:14)
[2020-03-16] MEDS: TAMSULOSIN 0.4 MG CAP.ER.24H PO SCH (08:32)
[2020-03-16] MEDS: AMLODIPINE 10 MG TAB PO SCH (08:32)
[2020-03-16] MEDS: CEFDINIR 300 MG CAPSULE PO SCH ×2 (08:35→21:14)
[2020-03-16] MEDS: ASPIRIN 81 MG TABLET EC PO SCH (08:36)
[2020-03-16] MEDS: INSULIN GLARGINE 100 UNITS/ML, PEN SQ-INSULIN SCH ×2 (08:54→21:13)
[2020-03-16 19:49] VITALS: BP 137/70
[2020-03-16] MEDS: MIRTAZAPINE 15 MG TABLET PO SCH (21:14)
[2020-03-17] MEDS: INSULIN LISPRO 100 UNITS/ML, PEN SQ-INSULIN SCH ×4 (07:46→20:40)
[2020-03-17 07:47] VITALS: BP 144/77
[2020-03-17] MEDS: INSULIN GLARGINE 100 UNITS/ML, PEN SQ-INSULIN SCH ×2 (08:45→20:40)
[2020-03-17] MEDS: AMLODIPINE 10 MG TAB PO SCH (08:45)
[2020-03-17] MEDS: TICAGRELOR 90 MG TABLET PO SCH ×2 (08:45→20:35)
[2020-03-17] MEDS: LISINOPRIL 10 MG TABLET PO SCH (08:45)
[2020-03-17] MEDS: SERTRALINE 100MG TABLET PO SCH (08:45)
[2020-03-17] MEDS: TAMSULOSIN 0.4 MG CAP.ER.24H PO SCH (08:45)
[2020-03-17] MEDS: LEVETIRACETAM 500 MG TABLET PO SCH ×2 (08:45→20:35)
[2020-03-17] MEDS: CEFDINIR 300 MG CAPSULE PO SCH (08:52)
[2020-03-17] MEDS: ASPIRIN 81 MG TABLET EC PO SCH (08:53)
[2020-03-17 19:15] VITALS: BP 130/74
[2020-03-17] MEDS: MIRTAZAPINE 15 MG TABLET PO SCH (20:35)
[2020-03-18 07:39] VITALS: BP 137/76
[2020-03-18] MEDS: INSULIN LISPRO 100 UNITS/ML, PEN SQ-INSULIN SCH ×4 (07:57→20:12)
[2020-03-18] MEDS: ASPIRIN 81 MG TABLET EC PO SCH (09:00)
[2020-03-18] MEDS: LEVETIRACETAM 500 MG TABLET PO SCH ×2 (09:15→20:08)
[2020-03-18] MEDS: AMLODIPINE 10 MG TAB PO SCH (09:15)
[2020-03-18] MEDS: SERTRALINE 100MG TABLET PO SCH (09:15)
[2020-03-18] MEDS: TAMSULOSIN 0.4 MG CAP.ER.24H PO SCH (09:15)
[2020-03-18] MEDS: LISINOPRIL 10 MG TABLET PO SCH (09:15)
[2020-03-18] MEDS: TICAGRELOR 90 MG TABLET PO SCH ×2 (09:15→20:08)
[2020-03-18] MEDS: INSULIN GLARGINE 100 UNITS/ML, PEN SQ-INSULIN SCH ×2 (09:15→20:13)
[2020-03-18 19:14] VITALS: BP 124/66
[2020-03-18] MEDS: MIRTAZAPINE 15 MG TABLET PO SCH (20:09)
[2020-03-19] MEDS: INSULIN LISPRO 100 UNITS/ML, PEN SQ-INSULIN SCH ×4 (07:00→20:14)
[2020-03-19 07:31] VITALS: BP 133/70
[2020-03-19] MEDS: SERTRALINE 100MG TABLET PO SCH (08:42)
[2020-03-19] MEDS: AMLODIPINE 10 MG TAB PO SCH (08:42)
[2020-03-19] MEDS: LISINOPRIL 10 MG TABLET PO SCH (08:43)
[2020-03-19] MEDS: TAMSULOSIN 0.4 MG CAP.ER.24H PO SCH (08:43)
[2020-03-19] MEDS: LEVETIRACETAM 500 MG TABLET PO SCH ×2 (08:43→20:21)
[2020-03-19] MEDS: ASPIRIN 81 MG TABLET EC PO SCH (08:44)
[2020-03-19] MEDS: TICAGRELOR 90 MG TABLET PO SCH ×2 (08:45→20:21)
[2020-03-19] MEDS: INSULIN GLARGINE 100 UNITS/ML, PEN SQ-INSULIN SCH ×2 (08:45→20:13)
[2020-03-19 19:15] VITALS: BP 131/70
[2020-03-19] MEDS: MIRTAZAPINE 15 MG TABLET PO SCH (20:21)
[2020-03-20] MEDS: INSULIN LISPRO 100 UNITS/ML, PEN SQ-INSULIN SCH ×4 (07:00→21:03)
[2020-03-20 07:42] VITALS: BP 135/63
[2020-03-20] MEDS: TICAGRELOR 90 MG TABLET PO SCH ×2 (08:28→20:10)
[2020-03-20] MEDS: AMLODIPINE 10 MG TAB PO SCH (08:28)
[2020-03-20] MEDS: LEVETIRACETAM 500 MG TABLET PO SCH ×2 (08:29→20:10)
[2020-03-20] MEDS: TAMSULOSIN 0.4 MG CAP.ER.24H PO SCH (08:29)
[2020-03-20] MEDS: SERTRALINE 100MG TABLET PO SCH (08:29)
[2020-03-20] MEDS: ASPIRIN 81 MG TABLET EC PO SCH (08:29)
[2020-03-20] MEDS: LISINOPRIL 10 MG TABLET PO SCH (08:30)
[2020-03-20] MEDS: INSULIN GLARGINE 100 UNITS/ML, PEN SQ-INSULIN SCH ×2 (08:32→21:03)
[2020-03-20 19:31] VITALS: BP 144/74
[2020-03-20] MEDS: MIRTAZAPINE 15 MG TABLET PO SCH (20:10)
[2020-03-21] MEDS: INSULIN LISPRO 100 UNITS/ML, PEN SQ-INSULIN SCH ×4 (07:00→21:18)
[2020-03-21 07:40] VITALS: BP 125/65
[2020-03-21] MEDS: TICAGRELOR 90 MG TABLET PO SCH ×2 (08:48→21:17)
[2020-03-21] MEDS: TAMSULOSIN 0.4 MG CAP.ER.24H PO SCH (08:48)
[2020-03-21] MEDS: ASPIRIN 81 MG TABLET EC PO SCH (08:48)
[2020-03-21] MEDS: SERTRALINE 100MG TABLET PO SCH (08:48)
[2020-03-21] MEDS: LEVETIRACETAM 500 MG TABLET PO SCH ×2 (08:49→21:17)
[2020-03-21] MEDS: LISINOPRIL 10 MG TABLET PO SCH (08:49)
[2020-03-21] MEDS: AMLODIPINE 10 MG TAB PO SCH (08:49)
[2020-03-21] MEDS: INSULIN GLARGINE 100 UNITS/ML, PEN SQ-INSULIN SCH ×2 (08:50→21:18)
[2020-03-21 19:15] VITALS: BP 142/74
[2020-03-21] MEDS: MIRTAZAPINE 15 MG TABLET PO SCH (21:17)
[2020-03-22] MEDS: INSULIN LISPRO 100 UNITS/ML, PEN SQ-INSULIN SCH ×4 (07:00→20:37)
[2020-03-22 07:20] VITALS: BP 126/74
[2020-03-22] MEDS: TAMSULOSIN 0.4 MG CAP.ER.24H PO SCH (08:52)
[2020-03-22] MEDS: INSULIN GLARGINE 100 UNITS/ML, PEN SQ-INSULIN SCH ×2 (08:52→20:10)
[2020-03-22] MEDS: AMLODIPINE 10 MG TAB PO SCH (08:52)
[2020-03-22] MEDS: ASPIRIN 81 MG TABLET EC PO SCH (08:52)
[2020-03-22] MEDS: SERTRALINE 100MG TABLET PO SCH (08:52)
[2020-03-22] MEDS: TICAGRELOR 90 MG TABLET PO SCH ×2 (08:52→20:10)
[2020-03-22] MEDS: LEVETIRACETAM 500 MG TABLET PO SCH ×2 (08:53→20:10)
[2020-03-22] MEDS: LISINOPRIL 10 MG TABLET PO SCH (08:59)
[2020-03-22 19:15] VITALS: BP 131/75
[2020-03-22] MEDS: MIRTAZAPINE 15 MG TABLET PO SCH (20:10)
[2020-03-23] MEDS: INSULIN LISPRO 100 UNITS/ML, PEN SQ-INSULIN SCH ×5 (06:11→20:58)
[2020-03-23 07:42] VITALS: BP 121/69
[2020-03-23] MEDS: ASPIRIN 81 MG TABLET EC PO SCH (08:48)
[2020-03-23] MEDS: TAMSULOSIN 0.4 MG CAP.ER.24H PO SCH (08:48)
[2020-03-23] MEDS: TICAGRELOR 90 MG TABLET PO SCH ×2 (08:48→20:47)
[2020-03-23] MEDS: LISINOPRIL 10 MG TABLET PO SCH (08:49)
[2020-03-23] MEDS: LEVETIRACETAM 500 MG TABLET PO SCH ×2 (08:49→20:47)
[2020-03-23] MEDS: SERTRALINE 100MG TABLET PO SCH (08:49)
[2020-03-23] MEDS: AMLODIPINE 10 MG TAB PO SCH (08:49)
[2020-03-23] MEDS: INSULIN GLARGINE 100 UNITS/ML, PEN SQ-INSULIN SCH ×2 (09:10→20:47)
[2020-03-23 19:30] VITALS: BP 129/74
[2020-03-23] MEDS: MIRTAZAPINE 15 MG TABLET PO SCH (20:47)
[2020-03-24 07:38] VITALS: BP 120/64
[2020-03-24] MEDS: AMLODIPINE 10 MG TAB PO SCH (09:26)
[2020-03-24] MEDS: TAMSULOSIN 0.4 MG CAP.ER.24H PO SCH (09:26)
[2020-03-24] MEDS: TICAGRELOR 90 MG TABLET PO SCH ×2 (09:26→20:39)
[2020-03-24] MEDS: SERTRALINE 100MG TABLET PO SCH (09:26)
[2020-03-24] MEDS: ASPIRIN 81 MG TABLET EC PO SCH (09:27)
[2020-03-24] MEDS: LEVETIRACETAM 500 MG TABLET PO SCH ×2 (09:27→20:39)
[2020-03-24] MEDS: LISINOPRIL 10 MG TABLET PO SCH (09:27)
[2020-03-24] MEDS: INSULIN GLARGINE 100 UNITS/ML, PEN SQ-INSULIN SCH ×2 (09:31→20:42)
[2020-03-24] MEDS: INSULIN LISPRO 100 UNITS/ML, PEN SQ-INSULIN SCH ×3 (12:02→20:42)
[2020-03-24 19:45] VITALS: BP 120/68
[2020-03-24] MEDS: ACETAMINOPHEN 325 MG TABLET PO PRN (20:39)
[2020-03-24] MEDS: MIRTAZAPINE 15 MG TABLET PO SCH (20:39)
[2020-03-25 07:36] VITALS: BP 121/69
[2020-03-25] MEDS: INSULIN LISPRO 100 UNITS/ML, PEN SQ-INSULIN SCH ×4 (07:49→20:07)
[2020-03-25 09:47] LABS: ALANINE AMINOTRANSFERASE 26 U/L (12-78); ALBUMIN 2.9 g/dL (3.4-5.0); ANION GAP 8 mmol/L (5-15); CALCIUM 8.5 mg/dL (8.5-10.1); CHLORIDE 107 mmol/L (98-107); CREATININE 0.78 mg/dL (0.7-1.3)
[2020-03-25 09:49] LABS: ALKALINE PHOSPHATASE 161 U/L (45-117); BILIRUBIN,TOTAL 0.4 mg/dL (0.2-1.0); TOTAL PROTEIN 7.1 g/dL (6.4-8.2)
[2020-03-25] MEDS: TICAGRELOR 90 MG TABLET PO SCH ×2 (09:57→19:58)
[2020-03-25] MEDS: LEVETIRACETAM 500 MG TABLET PO SCH ×2 (09:57→19:58)
[2020-03-25] MEDS: SERTRALINE 100MG TABLET PO SCH (09:57)
[2020-03-25] MEDS: AMLODIPINE 10 MG TAB PO SCH (09:57)
[2020-03-25] MEDS: TAMSULOSIN 0.4 MG CAP.ER.24H PO SCH (09:57)
[2020-03-25] MEDS: ASPIRIN 81 MG TABLET EC PO SCH (09:58)
[2020-03-25] MEDS: LISINOPRIL 10 MG TABLET PO SCH (09:58)
[2020-03-25] MEDS: INSULIN GLARGINE 100 UNITS/ML, PEN SQ-INSULIN SCH ×2 (09:58→20:06)
[2020-03-25 19:53] VITALS: BP 146/71
[2020-03-25] MEDS: MIRTAZAPINE 15 MG TABLET PO SCH (19:58)
[2020-03-26 07:00] VITALS: BP 137/79
[2020-03-26] MEDS: INSULIN LISPRO 100 UNITS/ML, PEN SQ-INSULIN SCH ×4 (07:30→20:19)
[2020-03-26] MEDS: TAMSULOSIN 0.4 MG CAP.ER.24H PO SCH (08:26)
[2020-03-26] MEDS: ASPIRIN 81 MG TABLET EC PO SCH (08:26)
[2020-03-26] MEDS: LISINOPRIL 10 MG TABLET PO SCH (08:26)
[2020-03-26] MEDS: AMLODIPINE 10 MG TAB PO SCH (08:26)
[2020-03-26] MEDS: LEVETIRACETAM 500 MG TABLET PO SCH ×2 (08:26→20:15)
[2020-03-26] MEDS: SERTRALINE 100MG TABLET PO SCH (08:27)
[2020-03-26] MEDS: INSULIN GLARGINE 100 UNITS/ML, PEN SQ-INSULIN SCH ×2 (08:27→20:18)
[2020-03-26] MEDS: TICAGRELOR 90 MG TABLET PO SCH ×2 (08:27→20:15)
[2020-03-26 19:11] VITALS: BP 144/78
[2020-03-26] MEDS: MIRTAZAPINE 15 MG TABLET PO SCH (20:15)
[2020-03-27] MEDS: INSULIN LISPRO 100 UNITS/ML, PEN SQ-INSULIN SCH ×2 (07:00→11:43)
[2020-03-27 07:55] VITALS: BP 163/82
[2020-03-27] MEDS: AMLODIPINE 10 MG TAB PO SCH (08:30)
[2020-03-27] MEDS: TICAGRELOR 90 MG TABLET PO SCH (08:30)
[2020-03-27] MEDS: LISINOPRIL 10 MG TABLET PO SCH (08:30)
[2020-03-27] MEDS: TAMSULOSIN 0.4 MG CAP.ER.24H PO SCH (08:30)
[2020-03-27] MEDS: SERTRALINE 100MG TABLET PO SCH (08:30)
[2020-03-27] MEDS: ASPIRIN 81 MG TABLET EC PO SCH (08:30)
[2020-03-27] MEDS: LEVETIRACETAM 500 MG TABLET PO SCH (08:30)
[2020-03-27] MEDS: INSULIN GLARGINE 100 UNITS/ML, PEN SQ-INSULIN SCH (08:32)
[2020-03-27] MEDS ORDERED: LEVE500T53 PO (09:48)
[2020-03-27] MEDS ORDERED: SERT100T32 PO (09:48)
[2020-03-27] MEDS ORDERED: INSU100I13 SQ-INSULIN (09:48)
[2020-03-27] MEDS ORDERED: INSU100I11 SQ-INSULIN (09:48)
[2020-03-27] MEDS ORDERED: LISI-167 PO (09:48)
[2020-03-27] MEDS ORDERED: AMLO10TA8 PO (09:48)
[2020-03-27] MEDS ORDERED: TAMS-11 PO (09:48)
[2020-03-27] MEDS ORDERED: ASPI81TA45 PO (09:48)
[2020-03-27] MEDS ORDERED: TICA90TA PO (09:48)
[2020-03-27] MEDS ORDERED: MIRT-34 PO (09:48)
== END 2020-03-27 13:05 | DRG 885 ==
LOC: 3E 20:20
PROVIDERS: ADMIT Psychiatry & Neurology Psychosomatic Medicine; ATTEND Psychiatry & Neurology Psychosomatic Medicine
DX: F33.2 Major depressive disorder, recurrent severe without psychotic features (principal); D68.69 Other thrombophilia; I48.20 Chronic atrial fibrillation, unspecified; N39.0 Urinary tract infection, site not specified; R45.851 Suicidal ideations; E11.65 Type 2 diabetes mellitus with hyperglycemia; E87.6 Hypokalemia; Z66 Do not resuscitate; G40.909 Epilepsy, unspecified, not intractable, without status epilepticus; G47.00 Insomnia, unspecified; G89.29 Other chronic pain; I10 Essential (primary) hypertension; I25.10 Atherosclerotic heart disease of native coronary artery without angina pectoris; I25.2 Old myocardial infarction; L40.50 Arthropathic psoriasis, unspecified; M19.90 Unspecified osteoarthritis, unspecified site; N40.0 Benign prostatic hyperplasia without lower urinary tract symptoms; F09 Unspecified mental disorder due to known physiological condition; M25.552 Pain in left hip; B95.7 Other staphylococcus as the cause of diseases classified elsewhere; R79.89 Other specified abnormal findings of blood chemistry; R29.700 NIHSS score 0; Z79.02 Long term (current) use of antithrombotics/antiplatelets; Z79.4 Long term (current) use of insulin; Z79.82 Long term (current) use of aspirin; Z88.6 Allergy status to analgesic agent; Z20.828 Contact with and (suspected) exposure to other viral communicable diseases; Z95.5 Presence of coronary angioplasty implant and graft; Z86.73 Personal history of transient ischemic attack (TIA), and cerebral infarction without residual deficits
CPT/HCPCS: 36415; 71045; 80048; 80053; 80061; 81001; 81003; 82140; 82607; 82947; 82962; 83036; 85025; 87077; 87086; 87186; 93005; J0696; J1815; U0001-CS

== ENCOUNTER 2020-06-25 11:43 | Emergency (ER) | payer MEDICARE ==
[~2020-06-25] VITALS: Ht 170.2 cm; Wt 65.0 kg
[~2020-06-25 11:43] MED LIST changes: +INSU100I13 SQ-INSULIN; +METH500T7 PO; +MIRT-34 PO; +OXYC-302 PO; +SERT100T32 PO
[2020-06-25 11:47] VITALS: BP 134/59
[2020-06-25] MEDS ORDERED: SODIUM CHLORIDE FLUSH 10ML SYR IVF ONE (12:00)
[2020-06-25 12:13] LABS: BASOPHILS # (AUTO) 0.03 x10^3/uL (0-0.1); BASOPHILS % (AUTO) 0 % (0-1); EOSINOPHILS % (AUTO) 0 % (1-7); LYMPHOCYTES # (AUTO) 0.81 x10^3/uL (1-3.4); LYMPHOCYTES % (AUTO) 7 % (22-44); MD NO; MEAN CORPUSCULAR HEMOGLOBIN 27.9 pg (27.5-34.5); MEAN CORPUSCULAR HGB CONC 33.3 g/dL (33.2-36.2); MEAN CORPUSCULAR VOLUME 83.7 fL (81-97); MEAN PLATELET VOLUME 7.7 fL (7.4-10.4); MONOCYTES # (AUTO) 0.52 x10^3/uL (0.2-0.8); MONOCYTES % (AUTO) 4 % (2-9); NEUTROPHILS # (AUTO) 10.72 x10^3/uL (1.8-6.8); NEUTROPHILS % (AUTO) 89 % (42-75); PLATELET COUNT 260 x10^3/uL (130-400); RED BLOOD COUNT 4.97 x10^6/uL (4.38-5.82); RED CELL DISTRIBUTION WIDTH 14.8 % (9.4-14.8)
[2020-06-25 12:19] LABS: ALBUMIN 3.4 g/dL (3.4-5.0); ANION GAP 7 mmol/L (5-15); CALCIUM 9.2 mg/dL (8.5-10.1); CHLORIDE 108 mmol/L (98-107); CREATININE 1.02 mg/dL (0.7-1.3)
--- NOTE | 2020-06-25 12:21 | NUR ---
PT BIB EMS FOR GLF WALKING W WALKER. PT STATES HE LOST BALANCE A FELL TO LEFT KNEE. SMALL ABRASIONS TO LEFT ELBOW AND KNEE. PT HAD RECENT HIP SURGEY AND WAS DC FROM REHAB TODAY. PT IS HOMELESS, WILL NEED SOCIAL WORK. PT DENIES HITTING HEAD, DIZZINESS, CP OR SOB.
--- NOTE | 2020-06-25 14:00 | NUR ---
PT SEEN BY ETCHER APPRENTICE
--- NOTE | 2020-06-25 15:47 | NUR ---
Patient/Caregiver given discharge instructions and they have confirmed that they understand the instructions. Patient ambulatory with steady gait.
== END 2020-06-25 16:33 | disposition home or self-care (01) ==
LOC: ED 12:32
DX: R53.1 Weakness (principal); M25.522 Pain in left elbow; R07.89 Other chest pain; I10 Essential (primary) hypertension; E11.9 Type 2 diabetes mellitus without complications; I25.2 Old myocardial infarction; I48.91 Unspecified atrial fibrillation; I25.10 Atherosclerotic heart disease of native coronary artery without angina pectoris; M19.90 Unspecified osteoarthritis, unspecified site; Z90.89 Acquired absence of other organs; Z86.73 Personal history of transient ischemic attack (TIA), and cerebral infarction without residual deficits
CPT/HCPCS: 36415; 71045; 80048; 82040; 85025; 93005; 99285